=== PATIENT | female | born 1990 | race Caucasian/White ===

== ENCOUNTER 2021-04-11 12:09 | Emergency (ER) | payer MEDICAID, SELFPAY ==
[2021-04-11 12:10] VITALS: BP 95/64; PULSE 72; RESP 16; TEMP 36.4; O2SAT 98; BMI 24.5
--- NOTE | 2021-04-11 14:00 | EDS_ITS ---
HPI History of Present Illness Chief Complaint: Flank Pain Informant: patient Narrative Narrative: Patient Present with right-sided flank pain. I first found she has been having this for several days. I then find out he goes back to October. I then find out it goes back in excess of a year.She had a colonoscopy about a year or so ago. She had another colonoscopy in December. She is waiting for an EGD. She was seen in December or January in a different emergency department.They did blood work, CAT scan and a HIDA scan. She reports all these as normal. She has follow-up with gastroenterology. She has tried what sounds like proton pump inhibitors.Food does make this worse but so it is motion.She has also been doing therapy for the back for about a year and this does not seem to help it. She has no radicular symptoms. She was seen today because she went to urgent care and was referred to the emergency department.No fevers or chills. No weight loss. No history of any abdominal surgery. Normal menstrual cycles and she is currently on her cycle. She denies urinary symptoms.Nothing makes her symptoms better or worse. PFSH PFSH Home Medications naproxen 500 mg PO BID PRN #14 tab 04/11/21 [Rx Last Taken Unknown] Allergy/AdvReac Type Severity Reaction Status Date / Time No Known Allergies Allergy Verified 04/11/21 12:12 Social History Smoking Status: Unknown if ever smoked ROS ROS ED Constitutional Constitutional ED: Denies chills or fever(s) Eyes Eyes: Denies blurry vision ENT ENT ED: Denies rhinorrhea or sore throat Cardiovascular Cardiovascular: Denies chest pain or palpitations Respiratory/Chest Respiratory/Chest: Denies cough, dyspnea, dyspnea on exertion or sputum Gastrointestinal Gastrointestinal: Reports abdominal pain; Denies constipation, diarrhea, melena, nausea or vomiting Genitourinary Genitourinary ED: Denies dysuria, hematuria or urinary frequency Musculoskeletal Musculoskeletal: Reports other Details: Pain does note toward the right flank slightly. ; Denies arthralgias or neck pain Integumentary Denies rash Neurologic Neurologic: Reports other Details: No Radicular or neurologic symptoms. ; Denies headache(s), paresthesias or weakness Psychiatric Psychiatric: Denies anxiety or depression Endocrine Endocrinology: Denies polyuria Allergic/Immunologic Allergic/Immunologic ED: Denies urticaria EXAM Physical Exam Const Vital Signs: 04/11/21 12:10 04/11/21 13:04 Temperature 97.6 F L Temperature Source Temporal Pulse Rate 72 Respiratory Rate 16 Respiratory Effort Normal Non-Labored Respiratory Pattern Normal Blood Pressure 95/64 Blood Pressure Mean 74 Pulse Ox 98 Oxygen Delivery Method Room Air Positive well nourished and well developed General Appearance ED: well developed; Negative for NAD HEENT Reports moist mucous membranes Eyes General Eye ED: Negative for pale conjunctiva or scleral icterus Neck no lymphadenopathy and no JVD Chest Wall inspection of chest normal Resp normal respiratory effort and clear to auscultation bilaterally Resp Narrative: Patient can take a deep breath without any discomfort. Effort and Inspection: Negative for pain with movement Auscultation: Negative for rales, rhonchi, wheezes or diminished lung sounds Cardio regular rate and regular rhythm GI normal to inspection, nondistended, normoactive bowel sounds and non-distended GI Narrative: Patient has some mild tenderness that tends to be more toward the right upper quadrant and lateral area. But it is quite variable.No herniation felt. No skin changes rashes or vesicles. Auscultation: normoactive bowel sounds Palpation: soft Back/Spine no CVA tenderness General Back: CVA tenderness Extremity normal to inspection General Extremety ED: Negative for edema or tenderness General Extremity: Negative for edema Neuro oriented x3 Sensorium / Orientation: alert Psych mental status grossly normal Skin no rashes or lesions noted MDM MDM MDM Narrative Medical decision making narrative: Bloodwork is showing no marked abnormalities. No elevated white count. Normal platelets. Hemoglobin normal. Electrolytes and liver function test are normal. are negative.Urine cyst shows red cells consistent with being on her menstrual cycle but no sign of infection. I explained to the patient that she has had symptoms for approaching a year or more. I do not have a specific diagnosis. She is already had colonoscopies, CT scans HIDA scan. She states that when she went to physical therapy and they did manipulation of her back it did seem to help. This would lean toward some musculoskeletal component. She does have pain with motion. We will try her on a short course of Naprosyn. 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 With pain going on for a year, normal blood work and already reportedly having a normal CT scan and HIDA scan I do not think further imaging today is needed. Lab Data Attestation: I reviewed the patient's lab results. Labs: Laboratory Results - last 24 hr 04/11/21 04/11/21 04/11/21 13:00 13:00 13:00 WBC 4.3 L RBC 4.13 L Hgb 12.7 Hct 37.6 MCV 91.0 MCH 30.8 MCHC 33.8 RDW Std Deviation 39.4 RDW Coeff of Jonathan 11.9 Plt Count 216 MPV 10.2 Immature Gran % (Auto) 0.000 Neut % (Auto) 58.1 Lymph % (Auto) 30.2 [place] % (Auto) 8.5 Eos % (Auto) 1.8 Baso % (Auto) 1.4 H Absolute Neuts (auto) 2.5 Absolute Lymphs (auto) 1.31 Nucleated RBC % 0 Sodium 141 Potassium 3.7 Chloride 109 H Carbon Dioxide 28.0 Anion Gap 4 L BUN 11 Creatinine 0.67 Estim Creat Clear Calc 115.98 Est GFR (MDRD) Af Amer 133 Est GFR (MDRD) Non-Af 110 BUN/Creatinine Ratio 16.3 Glucose 83 Calcium 8.8 Total Bilirubin 0.40 AST 14 L ALT 20 Alkaline Phosphatase 47 Total Protein 7.2 Albumin 3.6 Globulin 3.6 Albumin/Globulin Ratio 1.0 Lipase 141 Serum , Qual NEGATIVE Urine Color Urine Clarity Urine pH Ur Specific [place] Urine Protein Urine Glucose (UA) Urine Ketones Urine Occult Blood Urine Nitrite Urine Bilirubin Urine Urobilinogen Ur Leukocyte Esterase Urine RBC Urine WBC Ur Squamous Epith Cells Urine Bacteria Urine Mucus 04/11/21 13:00 WBC RBC Hgb Hct MCV MCH MCHC RDW Std Deviation RDW Coeff of Jonathan Plt Count MPV Immature Gran % (Auto) Neut % (Auto) Lymph % (Auto) [place] % (Auto) Eos % (Auto) Baso % (Auto) Absolute Neuts (auto) Absolute Lymphs (auto) Nucleated RBC % Sodium Potassium Chloride Carbon Dioxide Anion Gap BUN Creatinine Estim Creat Clear Calc Est GFR (MDRD) Af Amer Est GFR (MDRD) Non-Af BUN/Creatinine Ratio Glucose Calcium Total Bilirubin AST ALT Alkaline Phosphatase Total Protein Albumin Globulin Albumin/Globulin Ratio Lipase Serum , Qual Urine Color Yellow Urine Clarity Sl. Cloudy Urine pH 6.0 Ur Specific [place] 1.020 Urine Protein Negative Urine Glucose (UA) Normal Urine Ketones Negative Urine Occult Blood 250 H Urine Nitrite Negative Urine Bilirubin Negative Urine Urobilinogen Normal Ur Leukocyte Esterase Negative Urine RBC 25-50 SEEN Urine WBC 0 SEEN Ur Squamous Epith Cells 0-5 SEEN Urine Bacteria 1+ Urine Mucus 0 SEEN Radiography Diagnostic Testing: Clinical Impression(s) from Imaging Studies Chest X-Ray 04/11/21 14:10 IMPRESSION: No radiographic evidence of acute cardiopulmonary disease. Electronically Signed: Alon Melo MD at 14:24 EST , Service support , Discharge Plan Triage Chief Complaint: Flank Pain ED Provider: Matty Foster Dx/Rx/DC Orders Clinical Impression: Chronic right flank pain Instructions: ED Flank Pain, Uncertain Cause Prescriptions: New naproxen 500 MG tablet 500 mg PO BID PRN (Reason: pain) Qty: 14 RF: 0 Primary Care Provider: Care Physician,No Primary Referrals: Care Physician,No Primary [Primary Care Provider] - Activity Restrictions/Additional Instructions: Follow-up your primary physician and millinery department manager as soon as possible. Disposition Disposition: Home, Self Care
[2021-04-11 14:09] LABS: Absolute Lymphocyte Count 1.31 X10^3/uL (0.83-4.51); Absolute Neutrophil Count 2.5 X10^3/uL (2.0-7.7); Basophil# 0.06 X10^3/uL; Basophil% 1.4 % (0-1); Eosinophil# 0.08 X10^3/uL; Eosinophils% 1.8 % (0-5); Hematocrit 37.6 % (37-47); Hemoglobin 12.7 g/dL (12.0-15.0); Lymphocyte # 1.31 X10^3/ul (0.83-4.51); Lymphocyte % 30.2 % (19-41); Mean Corp Hgb Conc 33.8 g/dL (32-36); Mean Corpuscular Hgb 30.8 pg (27.0-32.0); Mean Platelet Vol. 10.2 fl (6.2-12.0); Monocyte# 0.37 X10^3/uL; Monocyte% 8.5 % (0-10); NRBC Flagged by Analyzer 0 % (0-5); Neutrophil # 2.52 X10^3/uL (2.7-7.7); Neutrophil % 58.1 % (47-70); Platelet Count 216 K/mm3 (150-450); RBC Distribution Width CV 11.9 % (11.6-14.6); RBC Distribution Width SD 39.4 fl (35.1-43.9); Red Blood Count 4.13 M/mm3 (4.2-5.4); White Blood Count 4.3 K/mm3 (4.4-11.0)
--- NOTE | 2021-04-11 14:10 | RAD_ITS ---
EXAM: XR CHEST, 2 VIEWS CLINICAL INDICATION: cough TECHNIQUE: Frontal and lateral views of the chest. This report was created using charity: water report generation technology. COMPARISON: None. FINDINGS: LUNGS AND PLEURAL SPACES: Unremarkable. No consolidation or edema. No pneumothorax. No effusion. HEART: Unremarkable. Cardiac silhouette not enlarged. MEDIASTINUM: Central airways and mediastinal contour are unremarkable. BONES/JOINTS: Unremarkable. SOFT TISSUES: Unremarkable. RAD/Chest PA and Lateral IMPRESSION: No radiographic evidence of acute cardiopulmonary disease. Electronically Signed: Alon Melo MD at 14:24 EST , Service support ,
[2021-04-11 14:13] LABS: Color, Urine Yellow (Yellow); Glucose, Dipstick Normal (Normal); Ketone-Dipstick Negative (Negative); Leukocyte Esterase-Dipstick Negative /ul (Negative); Mucous, Urine 0 SEEN /hpf (<or=2+); Nitrite-Dipstick Negative (Negative); Occult Blood-Urine 250 /ul (Negative); Protein-Dipstick Negative (Negative); Urine Bilirubin Dipstick Negative (Negative); Urine Clarity Sl. Cloudy (Clear); Urine Urobilinogen Normal (Normal); White Blood Cells 0 SEEN /hpf (0-5)
[2021-04-11 14:16] LABS: Internal QC Validated? YES +Cl - CLEAR BKGD; Pregnancy, Serum, hCG Quali. NEGATIVE Negative
[2021-04-11 14:20] LABS: Bacteria 1+ /hpf (None Seen); Red Blood Cells-Urine 25-50 SEEN /hpf (0-5); Squamous Epithelial Cells - UA 0-5 SEEN /hpf (5-10)
[2021-04-11 14:22] LABS: AST(SGOT) 14 U/L (15-37); Alanine Aminotransfer ALT/SGPT 20 U/L (13-56); Albumin, Serum 3.6 g/dL (3.2-5.0); Alkaline Phosphatase 47 U/L (45-117); Anion Gap 4 (5-15); BUN 11 mg/dL (7-18); BUN/Creat Ratio 16.3 RATIO (10-20); Calcium,Total 8.8 mg/dL (8.5-10.1); Chloride 109 mmol/L (98-107); Creatinine, Serum 0.67 mg/dL (0.55-1.02); EST Glomerular Filtration Rate 110 mL/min (>60); Est Glom Filt Rate - Afr Amer 133 mL/min (>60); Estimated Creatinine Clearance 115.98 ml/min; Globulin 3.6 g/dL (2.2-4.2); Glucose 83 mg/dL (74-106); Lipase 141 U/L (73-393); Potassium 3.7 mmol/L (3.5-5.1); Protein, Total 7.2 g/dL (6.4-8.2); Sodium Level 141 mmol/L (136-145)
[2021-04-11 16:08] VITALS: BP 90/64; PULSE 65; RESP 14; O2SAT 100
== END 2021-04-11 16:15 | disposition home or self-care (01) ==
PROVIDERS: Emergency Provider Emergency Medicine
DX: R10.11 Right upper quadrant pain (principal); G89.29 Other chronic pain
CPT/HCPCS: 71046; 80053; 81001; 83690; 84703; 85025; 99285; A4216

== ENCOUNTER → 2021-06-18 16:51 | Outpatient (CLI) | payer MEDICAID, SELFPAY ==
[2021-06-18 17:30] LABS: Hematocrit 41.2 % (37-47); Hemoglobin 13.9 g/dL (12.0-15.0); Mean Corp Hgb Conc 33.7 g/dL (32-36); Mean Corpuscular Hgb 30.9 pg (27.0-32.0); Mean Corpuscular Volume 91.6 fL (81-99); Mean Platelet Vol. 10.5 fl (6.2-12.0); Platelet Count 268 K/mm3 (150-450); RBC Distribution Width CV 11.9 % (11.6-14.6)
[2021-06-18 17:34] LABS: Color, Urine Yellow (Yellow); Glucose, Dipstick Normal (Normal); Ketone-Dipstick Negative (Negative); Leukocyte Esterase-Dipstick Negative /ul (Negative); Nitrite-Dipstick Negative (Negative); Occult Blood-Urine 10 /ul (Negative); Protein-Dipstick Negative (Negative); Urine Bilirubin Dipstick Negative (Negative); Urine Clarity Clear (Clear); Urine Urobilinogen Normal (Normal)
[2021-06-19 08:17] LABS: ALB/GLOB Ratio 1.1 RATIO (0.9-2.4); AST(SGOT) 17 U/L (15-37); Alanine Aminotransfer ALT/SGPT 22 U/L (13-56); Alkaline Phosphatase 54 U/L (45-117); Anion Gap 8 (5-15); BUN 8 mg/dL (7-18); BUN/Creat Ratio 11.7 RATIO (10-20); Calcium,Total 8.9 mg/dL (8.5-10.1); Chloride 104 mmol/L (98-107); Creatinine, Serum 0.68 mg/dL (0.55-1.02); EST Glomerular Filtration Rate 107 mL/min (>60); Est Glom Filt Rate - Afr Amer 130 mL/min (>60); Globulin 3.8 g/dL (2.2-4.2); Glucose 85 mg/dL (74-106); Potassium 3.6 mmol/L (3.5-5.1); Protein, Total 7.8 g/dL (6.4-8.2); Sodium Level 138 mmol/L (136-145); Thyroid Stim Hormone (TSH) 0.74 uIU/mL (0.358-3.74)
== END ==
DX: R42 Dizziness and giddiness (principal); R53.81 Other malaise; R35.89 Other polyuria
CPT/HCPCS: 80053; 81002; 84443; 85027

== ENCOUNTER 2021-06-29 12:08 | Emergency (ER) | payer BC, MEDICAID, SELFPAY ==
[2021-06-29 12:10] VITALS: BP 107/74; PULSE 83; RESP 17; TEMP 36.3; O2SAT 100; BMI 24.0
[2021-06-29 12:11] VITALS: BP 107/74; PULSE 83; RESP 17; TEMP 36.3; O2SAT 100
--- NOTE | 2021-06-29 12:28 | ED.VIS.FEGU ---
HPI <KRISTAL Baumann - Last Filed: 06/29/21 13:48> HPI - Female History of Present Illness Chief Complaint: Complaint Narrative Narrative: Patient presents with urinary urgency and burning x 1.5 weeks. She reports outpatient labs and urine consistent with UTI. Her primary care doctor prescribed Macrobid x5 days which she completed. Initially she felt better after finishing it 3 days ago. However yesterday she started to have urgency and some burning again. She has low back pain. She chronically has intermittent right flank pain of unknown etiology but denies this presently. PFSH <KRISTAL Baumann - Last Filed: 06/29/21 13:48> [facility] Medical History Abnormal weight loss Arthritis Chest pain Chronic neck and back pain Fatigue Fever History of attempted suicide Limb weakness Shoulder pain SOB (shortness of breath) Home Medications acetaminophen 325 mg tablet 325 mg PO ONCE PRN 04/11/21 [History Last Taken Unknown] ibuprofen 600 mg tablet 600 mg PO Q8H PRN 04/11/21 [History Last Taken Unknown] naproxen 500 mg PO BID PRN #14 tab 04/11/21 [Rx Last Taken Unknown] phenazopyridine [Pyridium] 200 mg PO BID PRN PRN #10 tab 06/29/21 [Rx Last Taken Unknown] sulfamethoxazole-trimethoprim [Bactrim DS] 1 tab PO BID #6 tab 06/29/21 [Rx Last Taken Unknown] Allergy/AdvReac Type Severity Reaction Status Date / Time cinnamon Allergy unknown Verified 04/22/21 10:48 herse Allergy unknown Uncoded 04/22/21 10:48 Family History (System 04/22/21 @ 10:48 by Rosemary Vaz) Other Anemia Heart defect Heart enlarged Hypoglycemia Social History Smoking Status: Unknown if ever smoked alcohol intake: never ROS <KRISTAL Baumann - Last Filed: 06/29/21 13:48> ROS ED ROS Narrative Constitutional: Negative for fever, chills, malaise. Eyes: Negative for visual change. ENT: Negative for sore throat, ear pain, rhinorrhea. CVS: Negative for palpitations, chest pain, syncope. Respiratory: Negative for shortness of breath, cough, orthopnea. GI: Negative for abdominal pain, nausea, vomiting, diarrhea, constipation, melena, hematochezia. : Positive for dysuria, frequency. Negative for hematuria. Neuro: Negative for headache, motor/sensory dysfunction. Skin: Negative for rash, abscess, or wound. Heme: Negative for easy bruising, bleeding, lymphadenopathy. EXAM <KRISTAL Baumann - Last Filed: 06/29/21 13:48> Physical Exam Narrative Exam Narrative: CONST: Patient sitting in no acute distress. EYES: Normal inspection. NECK: Normal inspection. RESP: No respiratory distress, CTAB. CVS: Regular rate and rhythm, no murmur, no gallop. ABD: Soft with mild suprapubic tenderness, no guarding or rebound, nondistended. Back: Normal inspection, right CVA tenderness- chronic according to patient. SKIN: Color normal, no rash, warm, dry, intact. EXTREMITIES: Normal appearance, no pedal edema. NEURO: Oriented x4. PSYCH: Normal affect. Const Vital Signs: 06/29/21 12:10 06/29/21 12:11 06/29/21 14:02 Temperature 97.4 F L 97.4 F L Temperature Source Temporal Temporal Pulse Rate 83 83 Respiratory Rate 17 17 16 Blood Pressure 107/74 107/74 Blood Pressure Mean 85 85 Pulse Ox 100 100 Oxygen Delivery Method Room Air Room Air <Dr. Lucia Maldonado MD - Last Filed: 06/29/21 17:36> Physical Exam Const Vital Signs: 06/29/21 12:10 06/29/21 12:11 06/29/21 14:02 Temperature 97.4 F L 97.4 F L Temperature Source Temporal Temporal Pulse Rate 83 83 Respiratory Rate 17 17 16 Blood Pressure 107/74 107/74 Blood Pressure Mean 85 85 Pulse Ox 100 100 Oxygen Delivery Method Room Air Room Air MDM <KRISTAL Baumann - Last Filed: 06/29/21 13:48> [facility] Narrative Medical decision making narrative: Patient was recently treated for UTI with Macrobid and presents with persistent dysuria. She appears well nontoxic. Vital signs are within normal limits. Her abdominal exam is benign. She has chronic right flank tenderness but states this is unchanged. She had recent labs here in 1/26 with a normal CBC/BMP. UA today is positive for leukocyte esterase but has no RBCs or WBCs and only 1+ bacteria. With her persistent urinary symptoms she will be started on 3 days of Bactrim and Pyridium and can follow-up with her primary care doctor for the urine culture. Patient was agreeable with this plan and discharged in stable condition. Diagnosis 1. UTI Lab Data Labs: Laboratory Results - last 24 hr 06/29/21 12:50 Urine Color Yellow Urine Clarity Clear Urine pH 6.0 Ur Specific [place] 1.015 Urine Protein Negative Urine Glucose (UA) Normal Urine Ketones Negative Urine Occult Blood 10 H Urine Nitrite Negative Urine Bilirubin Negative Urine Urobilinogen Normal Ur Leukocyte Esterase 25 H Urine RBC 0 SEEN Urine WBC 0-5 SEEN Ur Squamous Epith Cells 5-10 SEEN Urine Bacteria 1+ Urine Mucus 0 SEEN <Dr. 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 Patient independently interviewed and examined. Patient presents with recurrent dysuria. She was recently on Macrobid for UTI. She does have history of chronic right flank pain. Physical exam Patient lying in bed no acute distress. She is nontoxic-appearing. Head and neck examination unremarkable. Heart is regular rate and rhythm. Lung sounds are clear. Abdomen is soft with mild tenderness in the upper abdomen. No guarding or rebound. She has mild CVA tenderness on the right. Neuro exam is normal. Urinalysis shows 0-5 white cells with epithelial cells. 1+ bacteria is noted. With patient having recent confirmed UTI and now with recurrent symptoms should be treated with a 3-day course of Bactrim. She will also be given a prescription for Pyridium. Return instructions provided. Discharge Plan Triage Chief Complaint: Complaint ED Provider: Ivy Paul Dx/Rx/DC Orders Clinical Impression: UTI (urinary tract infection) Instructions: Urinary Tract Infections in Women Prescriptions: New phenazopyridine [Pyridium] 200 mg tablet 200 mg PO BID PRN PRN (Reason: Pain) Qty: 10 RF: 0 sulfamethoxazole-trimethoprim [Bactrim DS] 800-160 mg tablet 1 tab PO BID Qty: 6 RF: 0 No Action acetaminophen [Tylenol] 325 mg tablet 325 mg PO ONCE PRNRF: 0 ibuprofen 600 mg tablet 600 mg PO Q8H PRNRF: 0 naproxen 500 MG tablet 500 mg PO BID PRN (Reason: pain) Qty: 14 RF: 0 Referrals: Parth Moreau [Other] Activity Restrictions/Additional Instructions: Today you were seen for urinary complaints. Your urine shows a possible slight UTI but was sent for culture. I will start you on 3 days of antibiotics. Please call your primary care doctor tomorrow as he can check on the urine culture. Disposition Disposition: Home, Self Care Discharge Date/Time: 06/29/21 14:03
[2021-06-29 12:52] LABS: Mucous, Urine 0 SEEN /hpf (<or=2+); Red Blood Cells-Urine 0 SEEN /hpf (0-5)
[2021-06-29 12:55] LABS: Color, Urine Yellow (Yellow); Glucose, Dipstick Normal (Normal); Ketone-Dipstick Negative (Negative); Leukocyte Esterase-Dipstick 25 /ul (Negative); Nitrite-Dipstick Negative (Negative); Occult Blood-Urine 10 /ul (Negative); Protein-Dipstick Negative (Negative); Specific Gravity, Urine 1.015 (1.002-1.030); Urine Bilirubin Dipstick Negative (Negative); Urine Clarity Clear (Clear); Urine Urobilinogen Normal (Normal)
[2021-06-29 13:00] LABS: Bacteria 1+ /hpf (None Seen); Squamous Epithelial Cells - UA 5-10 SEEN /hpf (5-10); White Blood Cells 0-5 SEEN /hpf (0-5)
[2021-06-29 14:02] VITALS: RESP 16
== END 2021-06-29 23:59 | disposition home or self-care (01) ==
PROVIDERS: Emergency Provider Physician Assistant; Visit Provider Physician Assistant
DX: N39.0 Urinary tract infection, site not specified (principal)
CPT/HCPCS: 81001; 87086; 87088; 99282

== ENCOUNTER 2021-07-06 00:36 | Emergency (ER) | payer BC, MEDICAID, SELFPAY ==
[2021-07-06 00:36] VITALS: BP 111/67; PULSE 86; RESP 16; TEMP 37.1; O2SAT 100; BMI 25.0
--- NOTE | 2021-07-06 00:51 | EKG12_ITS ---
Test Reason : DIZZY Blood Pressure : / mmHG Vent. Rate : 085 BPM Atrial Rate : 085 BPM P-R Int : 132 ms QRS Dur : 086 ms QT Int : 350 ms P-R-T Axes : 056 076 050 degrees QTc Int : 416 ms Normal sinus rhythm Normal ECG Confirmed by DAYNE SMITH, DANIEL ([id number]), photo editor ANITHA BEE ([id number]) on 07/08/2021 11:38:03 AM Referred By: JOSH Confirmed By:DANIEL OSCAR MD
[2021-07-06 01:35] LABS: Mucous, Urine 0 SEEN /hpf (<or=2+); Squamous Epithelial Cells - UA 0 SEEN /hpf (5-10); White Blood Cells 0 SEEN /hpf (0-5)
[2021-07-06 01:39] LABS: Color, Urine Yellow (Yellow); Glucose, Dipstick Normal (Normal); Ketone-Dipstick Negative (Negative); Leukocyte Esterase-Dipstick Negative /ul (Negative); Nitrite-Dipstick Negative (Negative); Occult Blood-Urine 150 /ul (Negative); Protein-Dipstick Negative (Negative); Urine Bilirubin Dipstick Negative (Negative); Urine Clarity Clear (Clear); Urine Urobilinogen Normal (Normal)
[2021-07-06 01:40] LABS: Internal QC Validated? YES +Cl - CLEAR BKGD; Pregnancy, Urine Negative Negative
[2021-07-06 01:46] LABS: Bacteria RARE /hpf (None Seen); Red Blood Cells-Urine 5-10 SEEN /hpf (0-5)
[2021-07-06] MEDS: Meclizine HCl 25 MG Tablet PO (02:01)
[2021-07-06] MEDS: 0.9% Normal Saline 1,000 ML 1000 ML IV (02:02)
--- NOTE | 2021-07-06 02:04 | EX.ED.DYSGE1 ---
HPI History of Present Illness Chief Complaint: Dizziness Informant: patient Narrative Narrative: Patient had onset of vertigo dizziness and a mild sense of near syncope this evening. She has had this before but this seemed to be a little bit more than what she normally gets. She had some mild versions yesterday after she took aspirin. This is normal for her. She states she had some pelvic cramping because she is on her menstrual cycle. It seemed to be normal. She is not bleeding excessively. She asked for some Tylenol but somebody gave her aspirin instead. She took it and did not realize that. She did feel little lightheaded afterwards which would be a typical reaction when she takes aspirin. But it seemed to have resolved this morning. This afternoon it came back but was worse and she has not taken more aspirin. She did not have chest pain or palpitations. She has no headache. No numbness tingling weakness. No urinary symptoms. No diarrhea or vomiting. Her symptoms clearly get worse if she moves. If she stays still she does not feel that bad but if she moves or moves her head it is a lot worse. Nothing really makes it better other than staying still. Patient had a UTI recently but feels her symptoms are gone. She did take Bactrim for this. She also has history of mitral valve prolapse and does not know if that is what causes her symptoms. [facility] Medical History Abnormal weight loss Arthritis Chest pain Chronic neck and back pain Fatigue Fever History of attempted suicide Limb weakness Mitral valve regurgitation Shoulder pain SOB (shortness of breath) Home Medications acetaminophen 325 mg tablet 325 mg PO ONCE PRN 04/11/21 [History Last Taken Unknown] ibuprofen 600 mg tablet 600 mg PO Q8H PRN 04/11/21 [History Last Taken Unknown] naproxen 500 mg PO BID PRN #14 tab 04/11/21 [Rx Last Taken Unknown] phenazopyridine [Pyridium] 200 mg PO BID PRN PRN #10 tab 06/29/21 [Rx Last Taken Unknown] sulfamethoxazole-trimethoprim [Bactrim DS] 1 tab PO BID #6 tab 06/29/21 [Rx Last Taken Unknown] meclizine 25 mg PO TID PRN #20 tab 07/06/21 [Rx Last Taken Unknown] Allergy/AdvReac Type Severity Reaction Status Date / Time cinnamon Allergy unknown Verified 04/22/21 10:48 horse dander Allergy Itching Verified 07/06/21 00:39 Family History Other Anemia Heart defect Heart enlarged Hypoglycemia Social History Smoking Status: Never smoker alcohol intake: never ROS ROS ED Constitutional Constitutional ED: Denies chills or fever(s) Eyes Eyes: Reports other Details: No change in vision, but if she looks side side she gets more dizzy. ; Denies blurry vision, change in vision or diplopia ENT ENT ED: Denies ear pain, rhinorrhea or sore throat Cardiovascular Cardiovascular: Denies chest pain or palpitations Respiratory/Chest Respiratory/Chest: Denies dyspnea Gastrointestinal Gastrointestinal: Reports nausea and other Details: When dizziness is bad after turning she gets transient nausea but has not vomited. ; Denies abdominal pain, constipation, diarrhea, melena or vomiting Genitourinary Genitourinary ED: Denies dysuria, hematuria or urinary frequency Musculoskeletal Musculoskeletal: Denies arthralgias or myalgias Integumentary Denies rash Neurologic Neurologic: Denies headache(s), paresthesias or weakness Endocrine Endocrinology: Denies polydipsia or polyuria Allergic/Immunologic Allergic/Immunologic ED: Denies mouth swelling or urticaria EXAM Physical Exam Const Vital Signs: 07/06/21 00:36 07/06/21 00:39 Temperature 98.8 F Temperature Source Oral Pulse Rate 86 Respiratory Rate 16 Respiratory Effort Normal Respiratory Pattern Normal Blood Pressure 111/67 Blood Pressure Mean 81 Pulse Ox 100 Oxygen Delivery Method Room Air Positive well nourished and well developed Constitutional Narrative: Patient is awake alert no acute distress. Not diaphoretic. Not abnormally pale. No rashes noted. She does tend to sit straight up in bed and does not look side to side. General Appearance ED: well developed and NAD; Negative for cyanotic or diaphoretic HEENT Reports TM's clear and moist mucous membranes Negative for trauma or tenderness Tympanic Membrane ED: Yes TM's clear Eyes PERRL and EOMs intact bilaterally Neck no lymphadenopathy, supple and no JVD Chest Wall inspection of chest normal Resp normal respiratory effort and clear to auscultation bilaterally Cardio regular rate, regular rhythm and no murmurs GI normal to inspection, nondistended, normoactive bowel sounds and non-tender Palpation: soft Back/Spine no CVA tenderness Extremity normal to inspection Extremity Narrative: No cords, edema, asymmetry, tenderness along the deep venous system or distended veins. General Extremety ED: Negative for edema or tenderness General Extremity: Negative for edema Neuro oriented x3 Neuro Narrative: Patient does have significant vertigo looking to either side. To me it seems like she had more difficulty looking to the left than the right but she states she is not sure if she notices a different. I did do an Josephine maneuver. Although this did not completely resolve her symptoms it did help quite a bit and she can look left to right much better. Sensorium / Orientation: alert Psych mental status grossly normal Skin no rashes or lesions noted MDM MDM MDM Narrative Medical decision making narrative: Blood work shows normal CBC. Electrolytes are overall unremarkable. Urinalysis shows a few red cells but she is on her menstrual cycle. No sign of infection. test is negative. EKG is unremarkable. Patient is feeling little bit better. She states she still feels her symptoms a little bit when she turns but it is improved. It is more to a level that she is dealt with in the past. I will write for some meclizine. She states she is already off work for the next couple days so does not need a note. If she develops any focal numbness tingling weakness headaches visual changes or otherwise she should return. However, at this point I do not think a CAT scan is going to be indicated. Lab Data Attestation: I reviewed the patient's lab results. Labs: Laboratory Results - last 24 hr 07/06/21 07/06/21 07/06/21 01:30 01:54 01:54 WBC 6.3 RBC 4.25 Hgb 13.7 Hct 39.2 MCV 92.2 MCH 32.2 H MCHC 34.9 RDW Std Deviation 40.8 RDW Coeff of Jonathan 12.0 Plt Count 244 MPV 9.9 Immature Gran % (Auto) 0.200 Neut % (Auto) 77.7 H Lymph % (Auto) 16.1 L [place] % (Auto) 4.6 Eos % (Auto) 0.8 Baso % (Auto) 0.6 Absolute Neuts (auto) 4.9 Absolute Lymphs (auto) 1.01 Nucleated RBC % 0 Sodium 140 Potassium 3.8 Chloride 109 H Carbon Dioxide 28.0 Anion Gap 3 L BUN 10 Creatinine 0.68 Estim Creat Clear Calc 113.25 Est GFR (MDRD) Af Amer 131 Est GFR (MDRD) Non-Af 108 BUN/Creatinine Ratio 14.7 Glucose 100 Calcium 9.0 Urine Color Yellow Urine Clarity Clear Urine pH 6.0 Ur Specific [place] 1.010 Urine Protein Negative Urine Glucose (UA) Normal Urine Ketones Negative Urine Occult Blood 150 H Urine Nitrite Negative Urine Bilirubin Negative Urine Urobilinogen Normal Ur Leukocyte Esterase Negative Urine RBC 5-10 SEEN Urine WBC 0 SEEN Ur Squamous Epith Cells 0 SEEN Urine Bacteria RARE Urine Mucus 0 SEEN Urine Test Negative EKG Initial EKG: Comments: EKG done for lightheadedness read by me showed normal sinus rhythm with a rate of 85. No ectopy. No acute ST elevation or depression. LA interval, QRS duration and QTc normal. Discharge Plan Triage Chief Complaint: Dizziness ED Provider: Matty Foster Dx/Rx/DC Orders Clinical Impression: Vertigo Instructions: ED BPV Vertigo, ED Dizziness, Uncertain Cause Prescriptions: New meclizine 25 mg tablet 25 mg PO TID PRN (Reason: dizziness) Qty: 20 RF: 0 No Action acetaminophen [Tylenol] 325 mg tablet 325 mg PO ONCE PRNRF: 0 ibuprofen 600 mg tablet 600 mg PO Q8H PRNRF: 0 naproxen 500 MG tablet 500 mg PO BID PRN (Reason: pain) Qty: 14 RF: 0 phenazopyridine [Pyridium] 200 mg tablet 200 mg PO BID PRN PRN (Reason: Pain) Qty: 10 RF: 0 sulfamethoxazole-trimethoprim [Bactrim DS] 800-160 mg tablet 1 tab PO BID Qty: 6 RF: 0 Referrals: RICHAR ROLDAN [Other] - 3-5 Days if not improving Disposition Disposition: Home, Self Care
[2021-07-06 02:09] LABS: Absolute Lymphocyte Count 1.01 X10^3/uL (0.83-4.51); Absolute Neutrophil Count 4.9 X10^3/uL (2.0-7.7); Basophil# 0.04 X10^3/uL; Basophil% 0.6 % (0-1); Eosinophil# 0.05 X10^3/uL; Eosinophils% 0.8 % (0-5); Hematocrit 39.2 % (37-47); Hemoglobin 13.7 g/dL (12.0-15.0); Lymphocyte # 1.01 X10^3/ul (0.83-4.51); Lymphocyte % 16.1 % (19-41); Mean Corp Hgb Conc 34.9 g/dL (32-36); Mean Corpuscular Hgb 32.2 pg (27.0-32.0); Mean Corpuscular Volume 92.2 fL (81-99); Mean Platelet Vol. 9.9 fl (6.2-12.0); Monocyte# 0.29 X10^3/uL; Monocyte% 4.6 % (0-10); NRBC Flagged by Analyzer 0 % (0-5); Neutrophil # 4.88 X10^3/uL (2.7-7.7); Neutrophil % 77.7 % (47-70); Platelet Count 244 K/mm3 (150-450); RBC Distribution Width SD 40.8 fl (35.1-43.9); Red Blood Count 4.25 M/mm3 (4.2-5.4); White Blood Count 6.3 K/mm3 (4.4-11.0)
[2021-07-06 02:16] LABS: Anion Gap 3 (5-15); BUN 10 mg/dL (7-18); BUN/Creat Ratio 14.7 RATIO (10-20); Chloride 109 mmol/L (98-107); Creatinine, Serum 0.68 mg/dL (0.55-1.02); EST Glomerular Filtration Rate 108 mL/min (>60); Est Glom Filt Rate - Afr Amer 131 mL/min (>60); Estimated Creatinine Clearance 113.25 ml/min; Glucose 100 mg/dL (74-106); Potassium 3.8 mmol/L (3.5-5.1); Sodium Level 140 mmol/L (136-145)
[2021-07-06 03:05] VITALS: BP 101/71; PULSE 86; RESP 15; O2SAT 100
== END 2021-07-06 23:59 | disposition home or self-care (01) ==
PROVIDERS: Emergency Provider Emergency Medicine; Visit Provider Emergency Medicine
DX: R42 Dizziness and giddiness (principal)
CPT/HCPCS: 80048; 81001; 81025; 85025; 93005; 99285; A4216

== ENCOUNTER 2021-08-16 15:14 | Emergency (ER) | payer BC, MEDICAID, SELFPAY ==
[2021-08-16 15:17] VITALS: BP 104/67; PULSE 83; RESP 15; TEMP 36.5; O2SAT 100; BMI 24.8
--- NOTE | 2021-08-16 15:31 | CT_ITS ---
EXAM: CT ABDOMEN AND PELVIS WITH INTRAVENOUS CONTRAST CLINICAL INDICATION: RLQ pain TECHNIQUE: Helically acquired images were obtained of the abdomen and pelvis with intravenous contrast. This CT exam was performed using one or more of the following dose reduction techniques: automated exposure control, adjustment of the mA and/or kV according to patient size, and/or use of iterative reconstruction technique. This report was created using [employer] report generation technology. Motion artifact. CONTRAST: IV 100mL Isovue-300 COMPARISON: None. FINDINGS: LOWER THORAX: Unremarkable. Lung bases are clear. No cardiomegaly. No significant pericardial effusion. ABDOMEN: LIVER: Unremarkable. Homogeneous. No focal mass. GALLBLADDER AND BILE DUCTS: Unremarkable. No calcified gallstones. No gallbladder distention or wall edema. No intra- or extrahepatic biliary ductal dilation. PANCREAS: Unremarkable. No focal cystic or solid mass. SPLEEN: Unremarkable. Normal size without focal cystic or solid mass. ADRENALS: Unremarkable. No nodules. KIDNEYS AND URETERS: Unremarkable. Normal renal size and position. No hydronephrosis. STOMACH AND BOWEL: Unremarkable. No stomach or bowel distention. No focal inflammatory change. PELVIS: APPENDIX: No evidence of acute appendicitis. BLADDER: Unremarkable. REPRODUCTIVE: Unremarkable as visualized. No mass. ABDOMEN and PELVIS: INTRAPERITONEAL SPACE: Unremarkable. No ascites or other fluid collection. No free air. BONES/JOINTS: Unremarkable. No suspicious lytic or blastic abnormality. SOFT TISSUES: Unremarkable. No discrete abdominal or pelvic wall hernia. VASCULATURE: Unremarkable. Abdominal aorta is non-dilated. LYMPH NODES: Unremarkable. No enlarged lymph nodes. CT/Abdomen/Pelvis W IV Cont ONLY IMPRESSION: Negative CT of the abdomen and pelvis with intravenous contrast. Electronically Signed: Matthias Atkinson MD ([place]) at 16:57 EDT Reading Location ID and State: [facility] / [place] , Service support ,
--- NOTE | 2021-08-16 15:34 | ED.VIS.GI ---
HPI HPI - GI History of Present Illness Chief Complaint: Abd Pain Narrative Narrative: 31-year-old female presenting with right upper and lower quadrant abdominal pain. She states she has had this pain on and off for a week. It is associated with nausea. She is not been vomiting. She denies diarrhea or constipation. She states she has history of UTIs but is not having any urinary symptoms. No fevers. States sometimes she feels hot and sometimes she feels cold. She states today the pain has been there for about 30 minutes. She arrives by EMS from home she did not feel she could drive secondary to pain. [facility] Medical History Abnormal weight loss Arthritis Chest pain Chronic neck and back pain Fatigue Fever History of attempted suicide Limb weakness Mitral valve regurgitation Shoulder pain SOB (shortness of breath) Home Medications ondansetron 4 mg PO Q8H PRN #10 tab 08/16/21 [Rx Last Taken Unknown] Allergy/AdvReac Type Severity Reaction Status Date / Time cinnamon Allergy unknown Verified 08/16/21 15:15 horse dander Allergy Itching Verified 08/16/21 15:15 Family History Other Anemia Heart defect Heart enlarged Hypoglycemia Social History Smoking Status: Never smoker alcohol intake: never ROS ROS ED Review of Systems ROS Unobtainable: Denies due to encephalopathy Constitutional Constitutional ED: Reports chills and sweats; Denies fever(s) ENT ENT ED: Denies rhinorrhea or sore throat Cardiovascular Cardiovascular: Denies chest pain or palpitations Respiratory/Chest Respiratory/Chest: Denies cough or dyspnea Gastrointestinal Gastrointestinal: Reports abdominal pain and nausea; Denies constipation, diarrhea or vomiting Genitourinary Genitourinary ED: Denies dysuria or hematuria Musculoskeletal Musculoskeletal: Denies myalgias Integumentary Denies rash Neurologic Neurologic: Denies headache(s) or paresthesias Psychiatric Psychiatric: Denies anxiety or depression EXAM Physical Exam Const Vital Signs: 08/16/21 15:17 Temperature 97.7 F L Temperature Source Oral Pulse Rate 83 Respiratory Rate 15 Blood Pressure 104/67 Blood Pressure Mean 79 Pulse Ox 100 Oxygen Delivery Method Room Air Positive well nourished General Appearance ED: NAD and pallor HEENT Reports moist mucous membranes normocephalic and atraumatic Eyes PERRL and EOMs intact bilaterally General Eye ED: Negative for pale conjunctiva or scleral icterus Resp normal respiratory effort and clear to auscultation bilaterally Cardio regular rate and regular rhythm GI Palpation: tender RLQ and RUQ Neuro CN's II-XII intact bilaterally and moves all extremities Sensorium / Orientation: alert, oriented to person, oriented to place and oriented to time Psych mental status grossly normal and thought process normal Skin General Skin Exam: jaundice and pallor Rashes: no rashes MDM MDM MDM Narrative Medical decision making narrative: Patient having right upper quadrant and right lower quadrant abdominal pain. Not silvana Cantrell sign or McBurney point tenderness. CBC shows no leukocytosis, hemoglobin hematocrit normal. CMP and lipase are normal. Electrolytes and renal function are normal. Serum test is negative. Urinalysis is negative for infection. I obtained a CT of the abdomen pelvis IV contrast which does not identify any acute intra-abdominal abnormality. Patient counseled on findings. She has no further questions. Even her negative work-up I feel she safe to be discharged home. She is given return precautions. Impression: 1. Abdominal pain 2. Nausea Lab Data Labs: Laboratory Results - last 24 hr 08/16/21 08/16/21 08/16/21 15:30 15:30 15:30 WBC 5.6 RBC 4.56 Hgb 14.6 Hct 42.5 MCV 93.2 MCH 32.0 MCHC 34.4 RDW Std Deviation 40.5 RDW Coeff of Jonathan 11.8 Plt Count 249 MPV 10.0 Immature Gran % (Auto) 0.400 Neut % (Auto) 64.3 Lymph % (Auto) 28.3 [place] % (Auto) 5.2 Eos % (Auto) 1.1 Baso % (Auto) 0.7 Absolute Neuts (auto) 3.6 Absolute Lymphs (auto) 1.59 Nucleated RBC % 0 Sodium 138 Potassium 3.9 Chloride 107 Carbon Dioxide 28.0 Anion Gap 3 L BUN 10 Creatinine 0.75 Estim Creat Clear Calc 106.66 Est GFR (MDRD) Af Amer 117 Est GFR (MDRD) Non-Af 96 BUN/Creatinine Ratio 13.3 Glucose 93 Calcium 9.0 Total Bilirubin 0.20 AST 12 L ALT 20 Alkaline Phosphatase 55 Total Protein 7.7 Albumin 3.9 Globulin 3.8 Albumin/Globulin Ratio 1.0 Lipase 158 Serum , Qual NEGATIVE Urine Color Urine Clarity Urine pH Ur Specific [place] Urine Protein Urine Glucose (UA) Urine Ketones Urine Occult Blood Urine Nitrite Urine Bilirubin Urine Urobilinogen Ur Leukocyte Esterase Urine RBC Urine WBC Ur Squamous Epith Cells Amorphous Sediment Urine Bacteria Urine Mucus 08/16/21 16:15 WBC RBC Hgb Hct MCV MCH MCHC RDW Std Deviation RDW Coeff of Jonathan Plt Count MPV Immature Gran % (Auto) Neut % (Auto) Lymph % (Auto) [place] % (Auto) Eos % (Auto) Baso % (Auto) Absolute Neuts (auto) Absolute Lymphs (auto) Nucleated RBC % Sodium Potassium Chloride Carbon Dioxide Anion Gap BUN Creatinine Estim Creat Clear Calc Est GFR (MDRD) Af Amer Est GFR (MDRD) Non-Af BUN/Creatinine Ratio Glucose Calcium Total Bilirubin AST ALT Alkaline Phosphatase Total Protein Albumin Globulin Albumin/Globulin Ratio Lipase Serum , Qual Urine Color Yellow Urine Clarity Sl Cloudy Urine pH 7.0 Ur Specific [place] 1.015 Urine Protein Negative Urine Glucose (UA) Normal Urine Ketones Negative Urine Occult Blood 10 H Urine Nitrite Negative Urine Bilirubin Negative Urine Urobilinogen Normal Ur Leukocyte Esterase Negative Urine RBC 0-5 SEEN Urine WBC 0-5 SEEN Ur Squamous Epith Cells 0-5 SEEN Amorphous Sediment 1+ Urine Bacteria RARE Urine Mucus 0 SEEN Radiography Diagnostic Testing: Clinical Impression(s) from Imaging Studies Abdomen/Pelvis CT 08/16/21 15:31 IMPRESSION: Negative CT of the abdomen and pelvis with intravenous contrast. Electronically Signed: Matthias Atkinson MD ([place]) at 16:57 EDT Reading Location ID and State: [facility] / [place] , Service support , Discharge Plan Triage Chief Complaint: Abd Pain ED Provider: Timoteo Greenwood Dx/Rx/DC Orders Instructions: ED Abdominal Pain Unkn Cause Fem Prescriptions: New ondansetron 4 mg tablet,disintegrating 4 mg PO Q8H PRN (Reason: nausea and vomiting) Qty: 10 RF: 0 Referrals: RICHAR ROLDAN [Other] Disposition Disposition: Home, Self Care
[2021-08-16] MEDS: Morphine 4 MG/ML Syringe IV ×2 (15:47→16:26)
[2021-08-16] MEDS: Ondansetron 4 MG/2 ML Vial IV (15:47)
[2021-08-16] MEDS: 0.9% Normal Saline 1,000 ML 1000 ML IV (15:48)
[2021-08-16 15:57] LABS: Absolute Lymphocyte Count 1.59 X10^3/uL (0.83-4.51); Absolute Neutrophil Count 3.6 X10^3/uL (2.0-7.7); Basophil# 0.04 X10^3/uL; Basophil% 0.7 % (0-1); Eosinophil# 0.06 X10^3/uL; Eosinophils% 1.1 % (0-5); Hematocrit 42.5 % (37-47); Hemoglobin 14.6 g/dL (12.0-15.0); Lymphocyte # 1.59 X10^3/ul (0.83-4.51); Lymphocyte % 28.3 % (19-41); Mean Corp Hgb Conc 34.4 g/dL (32-36); Mean Corpuscular Volume 93.2 fL (81-99); Monocyte# 0.29 X10^3/uL; Monocyte% 5.2 % (0-10); NRBC Flagged by Analyzer 0 % (0-5); Neutrophil # 3.62 X10^3/uL (2.7-7.7); Neutrophil % 64.3 % (47-70); Platelet Count 249 K/mm3 (150-450); RBC Distribution Width CV 11.8 % (11.6-14.6); RBC Distribution Width SD 40.5 fl (35.1-43.9); Red Blood Count 4.56 M/mm3 (4.2-5.4); White Blood Count 5.6 K/mm3 (4.4-11.0)
[2021-08-16 16:12] LABS: AST(SGOT) 12 U/L (15-37); Alanine Aminotransfer ALT/SGPT 20 U/L (13-56); Albumin, Serum 3.9 g/dL (3.2-5.0); Alkaline Phosphatase 55 U/L (45-117); Anion Gap 3 (5-15); BUN 10 mg/dL (7-18); BUN/Creat Ratio 13.3 RATIO (10-20); Chloride 107 mmol/L (98-107); Creatinine, Serum 0.75 mg/dL (0.55-1.02); EST Glomerular Filtration Rate 96 mL/min (>60); Est Glom Filt Rate - Afr Amer 117 mL/min (>60); Estimated Creatinine Clearance 106.66 ml/min; Globulin 3.8 g/dL (2.2-4.2); Glucose 93 mg/dL (74-106); Lipase 158 U/L (73-393); Potassium 3.9 mmol/L (3.5-5.1); Protein, Total 7.7 g/dL (6.4-8.2); Sodium Level 138 mmol/L (136-145)
[2021-08-16 16:20] LABS: Internal QC Validated? YES +Cl - CLEAR BKGD; Pregnancy, Serum, hCG Quali. NEGATIVE Negative
[2021-08-16 16:24] LABS: Mucous, Urine 0 SEEN /hpf (<or=2+)
[2021-08-16 16:33] LABS: Color, Urine Yellow (Yellow); Glucose, Dipstick Normal (Normal); Ketone-Dipstick Negative (Negative); Specific Gravity, Urine 1.015 (1.002-1.030); Urine Bilirubin Dipstick Negative (Negative); Urine Clarity Sl Cloudy (Clear)
[2021-08-16 16:34] LABS: Leukocyte Esterase-Dipstick Negative /ul (Negative); Nitrite-Dipstick Negative (Negative); Occult Blood-Urine 10 /ul (Negative); Protein-Dipstick Negative (Negative); Red Blood Cells-Urine 0-5 SEEN /hpf (0-5); Squamous Epithelial Cells - UA 0-5 SEEN /hpf (5-10); Urine Urobilinogen Normal (Normal); White Blood Cells 0-5 SEEN /hpf (0-5)
[2021-08-16 16:35] LABS: Amorphous Sediment 1+; Bacteria RARE /hpf (None Seen)
[2021-08-16 18:06] VITALS: BP 108/64; PULSE 80; RESP 16; O2SAT 100
[2021-08-16] MEDS: Magnesium Citrate 300 ML PO (18:07)
== END 2021-08-16 18:19 | disposition home or self-care (01) ==
PROVIDERS: Emergency Provider Student in an Organized Health Care Education/Training Program; Visit Provider Student in an Organized Health Care Education/Training Program
DX: R10.11 Right upper quadrant pain (principal); R10.31 Right lower quadrant pain; R11.0 Nausea
CPT/HCPCS: 74177; 80053; 81001; 83690; 84703; 85025; 96361; 96374; 96375; 96376; 99285; J7030; Q9967; J2405

== ENCOUNTER 2021-09-27 20:29 | Emergency (ER) | payer BC, MEDICAID, SELFPAY ==
[2021-09-27 20:30] VITALS: BP 107/69; PULSE 89; RESP 14; TEMP 36.1; O2SAT 97; BMI 24.2
--- NOTE | 2021-09-27 20:47 | EDS_ITS ---
HPI HPI - GI History of Present Illness Chief Complaint: GI Bleed Narrative Narrative: 31-year-old female presenting with blood spotting in her stool. She states she has not had blood otherwise. She states she has noted on toilet paper. She states that there is no irritation to the rectum. Patient states that she does chronically take MiraLAX. She does not have any new abdominal pain and states that her chronic abdominal pain is unchanged. No fever, chills. No complaints. No lightheadedness, dizziness, shortness of breath. No pallor. PFSH PFSH Medical History Abnormal weight loss Arthritis Chest pain Chronic neck and back pain Fatigue Fever History of attempted suicide Limb weakness Mitral valve regurgitation Shoulder pain SOB (shortness of breath) Home Medications ondansetron 4 mg PO Q8H PRN #10 tab 08/16/21 [Rx Last Taken Unknown] bisacodyl [Dulcolax (bisacodyl)] 10 mg PO QHS 2 Days #4 tab 09/27/21 [Rx Last Taken Unknown] Allergy/AdvReac Type Severity Reaction Status Date / Time cinnamon Allergy unknown Verified 09/27/21 20:30 horse dander Allergy Itching Verified 09/27/21 20:30 Family History Other Anemia Heart defect Heart enlarged Hypoglycemia Social History Smoking Status: Never smoker alcohol intake: never ROS ROS ED Constitutional Constitutional ED: Denies chills or fever(s) ENT ENT ED: Denies rhinorrhea or sore throat Cardiovascular Cardiovascular: Denies chest pain or palpitations Respiratory/Chest Respiratory/Chest: Denies cough, dyspnea or sputum Gastrointestinal Gastrointestinal: Reports other Details: Blood in stool ; Denies abdominal pain, nausea or vomiting Genitourinary Genitourinary ED: Denies dysuria or hematuria Musculoskeletal Musculoskeletal: Denies myalgias Integumentary Denies abscess or rash Neurologic Neurologic: Denies headache(s) or weakness EXAM Physical Exam Const Vital Signs: 09/27/21 20:30 Temperature 96.9 F L Temperature Source Temporal Pulse Rate 89 Respiratory Rate 14 Blood Pressure 107/69 Blood Pressure Mean 81 Pulse Ox 97 Oxygen Delivery Method Room Air Positive well nourished General Appearance ED: NAD; Negative for pallor HEENT Reports moist mucous membranes normocephalic and atraumatic Eyes PERRL and EOMs intact bilaterally General Eye ED: Negative for pale conjunctiva Neck no lymphadenopathy and supple Resp normal respiratory effort and clear to auscultation bilaterally Cardio regular rate and regular rhythm GI non-tender and non-distended GI Narrative: Rectal exam: No external hemorrhoids noted. No anal fissure. On rectal exam there is possibly a small internal hemorrhoid at the 12:00 dorsal lithotomy position about 3 cm inward. There is no active bleeding. This is nontender to palpation. No silvana blood on examination. Auscultation: normoactive bowel sounds Palpation: soft Extremity full ROM Neuro Sensorium / Orientation: alert, oriented to person, oriented to place and oriented to time Psych mental status grossly normal Skin General Skin Exam: Negative for jaundice or pallor Lesions: no lesions Rashes: no rashes MDM MDM MDM Narrative Medical decision making narrative: This is a well-appearing 31-year-old female complaining of small amounts of blood in her stool. She also notes this when she wipes. She notes no rectal irritation. On examination there are no external hemorrhoids noted. No anal fissure. There is possibly a small internal hemorrhoid but there is no active bleeding. No black or bloody stool noted on exam. Patient tolerated procedure well. Her vital signs are stable and she is afebrile. She is not expressing any symptoms that would make me think she is anemic such as shortness of breath, lightheadedness, fatigue. I do not believe she needs blood work or imaging. She states she has a GI doctor that she sees and can follow-up with. Patient stable for discharge at this time. Impression: 1. Internal hemorrhoid 2. GI bleed stable Discharge Plan Triage Chief Complaint: GI Bleed ED Provider: Timoteo Greenwood Dx/Rx/DC Orders Instructions: ED Hemorrhoids Prescriptions: New bisacodyl [Dulcolax (bisacodyl)] 5 mg tablet,delayed release (DR/EC) 10 mg PO QHS 2 Days Qty: 4 RF: 0 No Action ondansetron 4 mg tablet,disintegrating 4 mg PO Q8H PRN (Reason: nausea and vomiting) Qty: 10 RF: 0 Primary Care Provider: [facility] Doctor,Out of Referrals: [facility] Doctor,Out of [Primary Care Provider] - Disposition Disposition: Home, Self Care
[2021-09-27 20:54] VITALS: BP 136/78; PULSE 66; RESP 14; TEMP 36.9; O2SAT 98
== END 2021-09-27 20:57 | disposition home or self-care (01) ==
LOC: ED 20:54
PROVIDERS: Emergency Provider Student in an Organized Health Care Education/Training Program; Visit Provider Student in an Organized Health Care Education/Training Program
DX: K64.8 Other hemorrhoids (principal)
CPT/HCPCS: 99282

== ENCOUNTER 2021-10-23 19:39 | Emergency (ER) | payer BC, MEDICAID, SELFPAY ==
[2021-10-23 19:40] VITALS: BP 110/68; PULSE 93; RESP 18; TEMP 36.4; O2SAT 98; BMI 22.8
--- NOTE | 2021-10-23 19:58 | EX.ED.DYSGE1 ---
HPI History of Present Illness Chief Complaint: Nausea/Vomiting Informant: patient Onset/Context/Timing Onset: Today Narrative Narrative: Presents nausea and vomiting since 4:30 PM today. Told to emesis no hematemesis. Has mid abdominal pain. States emesis helped with the pain. She has had vomiting the past several pain is different than typical. Last menstrual period 2 months ago. No abdominal surgery history. Yesterday had 4 loose stools. Today formed stool. Denies recent antibiotics. Denies fevers. Denies any urinary symptoms. PFSH PFSH Medical History Abnormal weight loss Arthritis Chest pain Chronic neck and back pain Fatigue Fever History of attempted suicide Limb weakness Mitral valve regurgitation Shoulder pain SOB (shortness of breath) Home Medications ondansetron 4 mg PO Q8H PRN #10 tab 08/16/21 [Rx Last Taken Unknown] bisacodyl [Dulcolax (bisacodyl)] 10 mg PO QHS 2 Days #4 tab 09/27/21 [Rx Last Taken Unknown] ondansetron 4 mg PO Q6H PRN #10 tab 10/23/21 [Rx Last Taken Unknown] Allergy/AdvReac Type Severity Reaction Status Date / Time cinnamon Allergy unknown Verified 10/23/21 19:41 horse dander Allergy Itching Verified 10/23/21 19:41 Family History Other Anemia Heart defect Heart enlarged Hypoglycemia Social History Smoking Status: Never smoker alcohol intake: never ROS ROS ED Constitutional Constitutional ED: Denies chills, fever(s) or sweats Eyes Eyes: Denies change in vision ENT ENT ED: Denies dysphagia or sore throat Cardiovascular Cardiovascular: Denies chest pain, leg edema, palpitations or racing heartbeat Respiratory/Chest Respiratory/Chest: Denies cough, dyspnea or dyspnea on exertion Gastrointestinal Gastrointestinal: Reports abdominal pain, nausea and vomiting; Denies diarrhea Genitourinary Genitourinary ED: Denies dysuria, hematuria or urinary frequency Musculoskeletal Musculoskeletal: Denies back pain, extremity pain or neck pain Integumentary Denies rash or wounds Neurologic Neurologic: Denies headache(s), paresthesias or weakness EXAM Physical Exam Const Vital Signs: 10/23/21 19:40 10/23/21 21:39 Temperature 97.6 F L 98.9 F Temperature Source Temporal Temporal Pulse Rate 93 99 Respiratory Rate 18 16 Blood Pressure 110/68 128/78 H Blood Pressure Mean 82 94 Pulse Ox 98 98 Oxygen Delivery Method Room Air Positive well nourished and well developed General Appearance ED: well developed and NAD HEENT Reports moist mucous membranes normocephalic and atraumatic Eyes PERRL, EOMs intact bilaterally and conjunctivae normal General Eye ED: Yes normal appearance of both eyes Neck no lymphadenopathy and supple General: Negative for tenderness Chest Wall Chest: Negative for tenderness Resp normal respiratory effort and normal air movement Effort and Inspection: symmetric chest movement; Negative for respiratory distress Cardio regular rate, regular rhythm and no murmurs Peripheral Pulses: pulses 2+ throughout GI normal to inspection, nondistended, normoactive bowel sounds GI Narrative: Tender palpation mid abdomen. No guarding or rebound. Negative Cantrell's or McBurney's tenderness. Palpation: Negative for guarding or rebound tenderness present Back/Spine no CVA tenderness and no thoracic nor lumbar tenderness Extremity normal to inspection General Extremety ED: Negative for edema or tenderness General Extremity: Negative for edema Neuro oriented x3 and no sensory deficits noted Sensorium / Orientation: awake and alert Skin no rashes or lesions noted and no wounds MDM MDM MDM Narrative Medical decision making narrative: Patient mid abdominal tenderness there is mild right lower quadrant tenderness. Patient given IV fluids, Zofran, Levsin. Abdominal labs all normal white count of 5.4 urine noted occult blood no infection hCG negative. 2144: Reevaluation nausea improved still has abdominal discomfort bartender helper same areas. Discussed further work-up with imaging for which she would like. CT scan abdomen pelvis ordered for further evaluation. 2229: Results of CT negative inflammation right lower quadrant appendix not visualized. Notes left ovarian cyst 1.9 cm reported hemorrhagic. Trace pelvic free fluid. Not hypotensive. She is nontender in this area on reevaluation. Discussed with patient continue oral fluids for vomiting Tylenol as needed Zofran sent to her pharmacy. Strict return precaution discussed. All questions answered. Lab Data Attestation: I reviewed the patient's lab results. Labs: Laboratory Results - last 24 hr 10/23/21 10/23/21 10/23/21 20:00 20:00 20:15 WBC 5.4 RBC 4.09 L Hgb 12.8 Hct 37.6 MCV 91.9 MCH 31.3 MCHC 34.0 RDW Std Deviation 39.9 RDW Coeff of Jonathan 11.9 Plt Count 186 MPV 9.9 Immature Gran % (Auto) 0.200 Neut % (Auto) 62.1 Lymph % (Auto) 29.6 [place] % (Auto) 6.8 Eos % (Auto) 0.6 Baso % (Auto) 0.7 Absolute Neuts (auto) 3.4 Absolute Lymphs (auto) 1.61 Nucleated RBC % 0 Sodium 138 Potassium 3.9 Chloride 108 H Carbon Dioxide 25.0 Anion Gap 5 BUN 10 Creatinine 0.77 Estim Creat Clear Calc 107.77 Est GFR (MDRD) Af Amer 113 Est GFR (MDRD) Non-Af 93 BUN/Creatinine Ratio 13.0 Glucose 96 Calcium 9.2 Total Bilirubin 0.30 Direct Bilirubin 0.06 AST 12 L ALT 20 Alkaline Phosphatase 47 Total Protein 7.3 Albumin 3.9 Globulin 3.4 Lipase 127 Urine Color Yellow Urine Clarity Sl. Cloudy Urine pH 6.0 Ur Specific [place] 1.025 Urine Protein Negative Urine Glucose (UA) Normal Urine Ketones 5 H Urine Occult Blood 50 H Urine Nitrite Negative Urine Bilirubin Negative Urine Urobilinogen Normal Ur Leukocyte Esterase Negative Urine RBC 0-5 SEEN Urine WBC 0-5 SEEN Ur Squamous Epith Cells 5-10 SEEN Urine Bacteria 1+ Urine Mucus 0 SEEN Urine Test Negative Radiography Diagnostic Testing: Clinical Impression(s) from Imaging Studies Abdomen/Pelvis CT 10/23/21 21:53 IMPRESSION: Small involuting left ovarian hemorrhagic cyst with trace dependent pelvic free fluid. Moderate colonic stool. Electronically Signed: Low Shah MD at 22:27 EDT Reading Location ID and State: Pending sale to [facility] / MD Tel , Service support , Discharge Plan Triage Chief Complaint: Nausea/Vomiting ED Provider: Aris Briggs Dx/Rx/DC Orders Clinical Impression: Abdominal pain, Nausea & vomiting, Cyst of left ovary Instructions: Abdominal Pain, ED Ovarian Cyst, ED Vomiting (Adult) Prescriptions: New ondansetron 4 mg tablet,disintegrating 4 mg PO Q6H PRN (Reason: nausea and vomiting) Qty: 10 RF: 0 No Action ondansetron 4 mg tablet,disintegrating 4 mg PO Q8H PRN (Reason: nausea and vomiting) Qty: 10 RF: 0 bisacodyl [Dulcolax (bisacodyl)] 5 mg tablet,delayed release (DR/EC) 10 mg PO QHS 2 Days Qty: 4 RF: 0 Referrals: HUYEN MCQUEEN [Other] - 2 Days Zelda Ruby DO [STAFF PHYSICIAN] - 1 Week Activity Restrictions/Additional Instructions: CT scan no inflammation of the right lower quadrant. Left ovarian cyst of 1.9 cm. Follow-up with [facility]. Continue oral fluids. Monitor for any worsening symptoms to return. Disposition Disposition: Home, Self Care Discharge Date/Time: 10/23/21 22:42
[2021-10-23 20:06] LABS: Absolute Lymphocyte Count 1.61 X10^3/uL (0.83-4.51); Absolute Neutrophil Count 3.4 X10^3/uL (2.0-7.7); Basophil# 0.04 X10^3/uL; Basophil% 0.7 % (0-1); Eosinophil# 0.03 X10^3/uL; Eosinophils% 0.6 % (0-5); Hematocrit 37.6 % (37-47); Hemoglobin 12.8 g/dL (12.0-15.0); Lymphocyte # 1.61 X10^3/ul (0.83-4.51); Lymphocyte % 29.6 % (19-41); Mean Corpuscular Hgb 31.3 pg (27.0-32.0); Mean Corpuscular Volume 91.9 fL (81-99); Mean Platelet Vol. 9.9 fl (6.2-12.0); Monocyte# 0.37 X10^3/uL; Monocyte% 6.8 % (0-10); NRBC Flagged by Analyzer 0 % (0-5); Neutrophil # 3.38 X10^3/uL (2.7-7.7); Neutrophil % 62.1 % (47-70); Platelet Count 186 K/mm3 (150-450); RBC Distribution Width CV 11.9 % (11.6-14.6); RBC Distribution Width SD 39.9 fl (35.1-43.9); Red Blood Count 4.09 M/mm3 (4.2-5.4); White Blood Count 5.4 K/mm3 (4.4-11.0)
[2021-10-23] MEDS: 0.9% Normal Saline 1,000 ML 1000 ML IV (20:14)
[2021-10-23] MEDS: Ondansetron 4 MG/2 ML Vial IV (20:15)
[2021-10-23] MEDS: Hyoscyamine Sulfate 0.125 MG Tablet SL (20:15)
[2021-10-23 20:20] LABS: Mucous, Urine 0 SEEN /hpf (<or=2+)
[2021-10-23 20:23] LABS: Color, Urine Yellow (Yellow); Glucose, Dipstick Normal (Normal); Ketone-Dipstick 5 mg/dl (Negative); Leukocyte Esterase-Dipstick Negative /ul (Negative); Nitrite-Dipstick Negative (Negative); Occult Blood-Urine 50 /ul (Negative); Protein-Dipstick Negative (Negative); Specific Gravity, Urine 1.025 (1.002-1.030); Urine Bilirubin Dipstick Negative (Negative); Urine Clarity Sl. Cloudy (Clear); Urine Urobilinogen Normal (Normal)
[2021-10-23 20:29] LABS: Bacteria 1+ /hpf (None Seen)
[2021-10-23 20:30] LABS: Internal QC Validated? YES +Cl - CLEAR BKGD; Pregnancy, Urine Negative Negative; Red Blood Cells-Urine 0-5 SEEN /hpf (0-5); Squamous Epithelial Cells - UA 5-10 SEEN /hpf (5-10); White Blood Cells 0-5 SEEN /hpf (0-5)
[2021-10-23 20:39] LABS: AST(SGOT) 12 U/L (15-37); Alanine Aminotransfer ALT/SGPT 20 U/L (13-56); Albumin, Serum 3.9 g/dL (3.2-5.0); Alkaline Phosphatase 47 U/L (45-117); Anion Gap 5 (5-15); BUN 10 mg/dL (7-18); Bilirubin, Direct 0.06 mg/dL (0.00-0.30); Calcium,Total 9.2 mg/dL (8.5-10.1); Chloride 108 mmol/L (98-107); Creatinine, Serum 0.77 mg/dL (0.55-1.02); EST Glomerular Filtration Rate 93 mL/min (>60); Est Glom Filt Rate - Afr Amer 113 mL/min (>60); Estimated Creatinine Clearance 107.77 ml/min; Globulin 3.4 g/dL (2.2-4.2); Glucose 96 mg/dL (74-106); Lipase 127 U/L (73-393); Potassium 3.9 mmol/L (3.5-5.1); Protein, Total 7.3 g/dL (6.4-8.2); Sodium Level 138 mmol/L (136-145)
[2021-10-23 21:39] VITALS: BP 128/78; PULSE 99; RESP 16; TEMP 37.2; O2SAT 98
--- NOTE | 2021-10-23 21:53 | CT_ITS ---
INDICATION: lower abd pain EXAMINATION: CT ABDOMEN AND PELVIS WITH CONTRAST - CT Abdomen And Pelvis W/ Contrast Injection TECHNIQUE: Helically acquired images were obtained of the abdomen and pelvis following IV contrast. A radiation dose optimization technique was used for this scan. IV Contrast dosage and agent: 100 mL Isovue-300 Oral contrast: None. COMPARISON: August 16, 2021. FINDINGS: LOWER CHEST: Lung bases are clear. No cardiomegaly or pericardial effusion. LIVER: Homogeneous. No focal mass. GALLBLADDER AND BILIARY TREE: No calcified gallstones. No gallbladder distension or wall edema. No intra- or extrahepatic biliary ductal dilation. PANCREAS: No focal cystic or solid mass. SPLEEN: Normal size without focal cystic or solid mass. ADRENAL GLANDS: No nodules. KIDNEYS AND URETERS: Normal renal size and position. No hydronephrosis. PERITONEUM: No free air. Trace likely physiologic pelvic free fluid.. No other fluid collection. BOWEL: Appendix is not definitively seen. No right lower quadrant inflammation to suggest appendicitis. No stomach or bowel distension. No focal inflammatory change. Moderate colonic stool burden. LYMPH NODES: No enlarged mesenteric or retroperitoneal lymph nodes. VESSELS: Aorta is non-dilated. URINARY BLADDER: Unremarkable. REPRODUCTIVE ORGANS: Unremarkable uterus. Involuting left ovarian 1.9 cm hemorrhagic cyst. No evidence of right ovarian mass.. ABDOMINAL WALL: No discrete abdominal or pelvic wall hernia. BONES: No lytic or blastic abnormality. CT/Abdomen/Pelvis W IV Cont ONLY IMPRESSION: Small involuting left ovarian hemorrhagic cyst with trace dependent pelvic free fluid. Moderate colonic stool. Electronically Signed: Low Shah MD at 22:27 EDT ,
== END 2021-10-23 22:42 | disposition home or self-care (01) ==
PROVIDERS: Emergency Provider Emergency Medicine; Visit Provider Emergency Medicine
DX: R11.2 Nausea with vomiting, unspecified (principal); R10.31 Right lower quadrant pain; N83.202 Unspecified ovarian cyst, left side
CPT/HCPCS: 74177; 80048; 80076; 81001; 81025; 83690; 85025; 96361; 96374; 99284; Q9967; A4216; J2405

== ENCOUNTER 2021-10-26 23:21 | Emergency (ER) | payer BC, MEDICAID, SELFPAY ==
[2021-10-26 23:23] VITALS: BP 105/60; PULSE 80; RESP 16; TEMP 36.8; O2SAT 98; BMI 23.5
--- NOTE | 2021-10-27 | EDS_ITS ---
HPI HPI - GI History of Present Illness Chief Complaint: Abd Pain Abdominal Pain/Flank Pain Onset: Today and Hours (3) Context: Gradual Onset Timing: Continuous Quality: Burning Location: RUQ and - (Radiates into her back) Worsened by: Food Relieved by: Nothing Nausea/Vomiting/Emesis GI Symptom: Positive for Nausea; Negative for Vomiting Diarrhea/Melena/Hematochezia GI Symptom: Positive for Diarrhea; Negative for Melena and Hematochezia Associated Symptoms Associated Symptoms: Negative for Dysuria, Frequency, Hematuria and Urgency LMP: 3 weeks ago Narrative Narrative: StayPatient presents with abdominal [facility] that [facility]. Patient states it is over her right upper quadrant. Patient states it radiates into her back. It is worse after eating. Patient states that she has been eating some bland foods. Patient states she has had some diarrhea last week but denies any diarrhea, melena, or hematochezia currently. Patient denies any fevers or chills. Patient states she contacted her primary care physician who told her to [facility] PFS Medical History Abnormal weight loss Arthritis Chest pain Chronic neck and back pain Fatigue Fever History of attempted suicide Limb weakness Mitral valve regurgitation Shoulder pain SOB (shortness of breath) Home Medications ondansetron 4 mg PO Q6H PRN #10 tab 10/23/21 [Rx Last Taken Unknown] hydrocodone-acetaminophen 1 tab PO Q6H PRN PRN 3 Days #10 tablet 10/27/21 [Rx Last Taken Unknown] ondansetron 4 mg PO Q8H PRN #10 tab 10/27/21 [Rx Last Taken Unknown] Allergy/AdvReac Type Severity Reaction Status Date / Time cinnamon Allergy unknown Verified 10/23/21 19:41 horse dander Allergy Itching Verified 10/23/21 19:41 Family History Other Anemia Heart defect Heart enlarged Hypoglycemia Surgical History no surgical history no surgical history Social History Smoking Status: Never smoker alcohol intake: never ROS ROS ED Constitutional Constitutional ED: Denies chills or fever(s) Eyes Eyes: Denies blurry vision or change in vision ENT ENT ED: Denies rhinorrhea or sore throat Cardiovascular Cardiovascular: Denies chest pain or palpitations Respiratory/Chest Respiratory/Chest: Denies cough or dyspnea Gastrointestinal Gastrointestinal: Reports abdominal pain, diarrhea and nausea; Denies melena or vomiting Genitourinary Genitourinary ED: Denies dysuria or hematuria Musculoskeletal Musculoskeletal: Reports back pain; Denies neck pain Integumentary Denies abscess or rash Neurologic Neurologic: Reports headache(s); Denies weakness Allergic/Immunologic Allergic/Immunologic ED: Denies mouth swelling or urticaria EXAM Physical Exam Const Vital Signs: 10/26/21 23:23 Temperature 98.2 F Temperature Source Oral Pulse Rate 80 Respiratory Rate 16 Blood Pressure 105/60 Blood Pressure Mean 75 Pulse Ox 98 Oxygen Delivery Method Room Air Positive well nourished and well developed General Appearance ED: well developed HEENT Reports moist mucous membranes Neck supple and no JVD Resp normal respiratory effort and clear to auscultation bilaterally Cardio regular rate, regular rhythm and no murmurs GI normal to inspection, nondistended, normoactive bowel sounds and non-distended Palpation: soft, tender RUQ and guarding; Negative for rebound tenderness present Extremity normal to inspection General Extremety ED: Negative for edema or tenderness General Extremity: Negative for edema Neuro oriented x3, CN's II-XII intact bilaterally and no sensory deficits noted Sensorium / Orientation: alert Motor Exam: strength 5/5 throughout Psych mental status grossly normal Skin no rashes or lesions noted MDM MDM MDM Narrative Medical decision making narrative: Patient was given IV fluids, morphine, and Zofran here. CBC was within normal limits. Comprehensive metabolic profile was normal. Lipase was normal. Serum hCG was negative. Urinalysis does not show any evidence of urinary tract infection. Patient is feeling better on reevaluation. Patient was advised of her findings. Patient was advised that this could still be pain from her gallbladder however, it does not need to be removed emergently tonight. Patient was advised that we were unable to do an ultrasound here tonight. Patient was instructed to follow-up with her primary care physician for further evaluation in 3 to 5 days. Patient was also given a referral for surgery. Patient was given prescriptions for Benson and Zofran. Patient was instructed to start with a liquid diet and advance as tolerated. Patient was instructed to avoid fried foods, fatty foods, greasy foods. Patient understood and was agreeable with the plan. All questions were answered. Lab Data Labs: Laboratory Results - last 24 hr 10/26/21 10/26/21 10/26/21 23:50 23:50 23:50 WBC 8.1 RBC 4.56 Hgb 14.5 Hct 41.8 MCV 91.7 MCH 31.8 MCHC 34.7 RDW Std Deviation 38.8 RDW Coeff of Jonathan 11.4 L Plt Count 232 MPV 10.5 Immature Gran % (Auto) 1.500 H Neut % (Auto) 65.6 Lymph % (Auto) 23.3 [place] % (Auto) 7.8 Eos % (Auto) 1.1 Baso % (Auto) 0.7 Absolute Neuts (auto) 5.3 Absolute Lymphs (auto) 1.88 Nucleated RBC % 0 Sodium 138 Potassium 3.9 Chloride 107 Carbon Dioxide 24.0 Anion Gap 7 BUN 14 Creatinine 0.74 Estim Creat Clear Calc 108.10 Est GFR (MDRD) Af Amer 117 Est GFR (MDRD) Non-Af 97 BUN/Creatinine Ratio 18.8 Glucose 89 Calcium 9.0 Total Bilirubin 0.20 AST 13 L ALT 23 Alkaline Phosphatase 54 Total Protein 7.9 Albumin 4.1 Globulin 3.8 Albumin/Globulin Ratio 1.1 Lipase 175 Serum , Qual NEGATIVE Urine Color Urine Clarity Urine pH Ur Specific [place] Urine Protein Urine Glucose (UA) Urine Ketones Urine Occult Blood Urine Nitrite Urine Bilirubin Urine Urobilinogen Ur Leukocyte Esterase Urine RBC Urine WBC Ur Squamous Epith Cells Urine Bacteria Urine Mucus 10/27/21 00:12 WBC RBC Hgb Hct MCV MCH MCHC RDW Std Deviation RDW Coeff of Jonathan Plt Count MPV Immature Gran % (Auto) Neut % (Auto) Lymph % (Auto) [place] % (Auto) Eos % (Auto) Baso % (Auto) Absolute Neuts (auto) Absolute Lymphs (auto) Nucleated RBC % Sodium Potassium Chloride Carbon Dioxide Anion Gap BUN Creatinine Estim Creat Clear Calc Est GFR (MDRD) Af Amer Est GFR (MDRD) Non-Af BUN/Creatinine Ratio Glucose Calcium Total Bilirubin AST ALT Alkaline Phosphatase Total Protein Albumin Globulin Albumin/Globulin Ratio Lipase Serum , Qual Urine Color Yellow Urine Clarity Clear Urine pH 7.0 Ur Specific [place] 1.010 Urine Protein Negative Urine Glucose (UA) Normal Urine Ketones Negative Urine Occult Blood Negative Urine Nitrite Negative Urine Bilirubin Negative Urine Urobilinogen Normal Ur Leukocyte Esterase Negative Urine RBC 0-5 SEEN Urine WBC 0 SEEN Ur Squamous Epith Cells 0-5 SEEN Urine Bacteria 1+ Urine Mucus 0 SEEN Discharge Plan Triage Chief Complaint: Abd Pain ED Provider: Jorge A Vasquez Dx/Rx/DC Orders Clinical Impression: Right upper quadrant abdominal pain Instructions: ED Abdominal Pain Unkn Cause Fem, ED Abdominal Pain Gallstone Poss Prescriptions: New hydrocodone-acetaminophen [hydrocodone-acetaminophen] 1 TABLET tablet 1 tab PO Q6H PRN PRN (Reason: Pain) 3 Days Qty: 10 RF: 0 Continued ondansetron 4 mg tablet,disintegrating 4 mg PO Q8H PRN (Reason: nausea and vomiting) Qty: 10 RF: 0 No Action ondansetron 4 mg tablet,disintegrating 4 mg PO Q6H PRN (Reason: nausea and vomiting) Qty: 10 RF: 0 Referrals: RICHAR ROLDAN [Other] - 3-5 Days Dorian Clemons MD [STAFF PHYSICIAN] - 3-5 Days Disposition Disposition: Home, Self Care
[2021-10-27] MEDS: Morphine 4 MG/ML Syringe IV (00:14)
[2021-10-27] MEDS: 0.9% Normal Saline 1,000 ML 1000 ML IV (00:14)
[2021-10-27] MEDS: Ondansetron 4 MG/2 ML Vial IV (00:14)
[2021-10-27 00:17] LABS: Mucous, Urine 0 SEEN /hpf (<or=2+); White Blood Cells 0 SEEN /hpf (0-5)
[2021-10-27 00:17] LABS: Absolute Lymphocyte Count 1.88 X10^3/uL (0.83-4.51); Absolute Neutrophil Count 5.3 X10^3/uL (2.0-7.7); Basophil# 0.06 X10^3/uL; Basophil% 0.7 % (0-1); Eosinophil# 0.09 X10^3/uL; Eosinophils% 1.1 % (0-5); Hematocrit 41.8 % (37-47); Hemoglobin 14.5 g/dL (12.0-15.0); Lymphocyte # 1.88 X10^3/ul (0.83-4.51); Lymphocyte % 23.3 % (19-41); Mean Corp Hgb Conc 34.7 g/dL (32-36); Mean Corpuscular Hgb 31.8 pg (27.0-32.0); Mean Corpuscular Volume 91.7 fL (81-99); Mean Platelet Vol. 10.5 fl (6.2-12.0); Monocyte# 0.63 X10^3/uL; Monocyte% 7.8 % (0-10); NRBC Flagged by Analyzer 0 % (0-5); Neutrophil # 5.28 X10^3/uL (2.7-7.7); Neutrophil % 65.6 % (47-70); Platelet Count 232 K/mm3 (150-450); RBC Distribution Width CV 11.4 % (11.6-14.6); RBC Distribution Width SD 38.8 fl (35.1-43.9); Red Blood Count 4.56 M/mm3 (4.2-5.4); White Blood Count 8.1 K/mm3 (4.4-11.0)
[2021-10-27 00:19] LABS: Color, Urine Yellow (Yellow); Glucose, Dipstick Normal (Normal); Ketone-Dipstick Negative (Negative); Leukocyte Esterase-Dipstick Negative /ul (Negative); Nitrite-Dipstick Negative (Negative); Occult Blood-Urine Negative /ul (Negative); Protein-Dipstick Negative (Negative); Urine Bilirubin Dipstick Negative (Negative); Urine Clarity Clear (Clear); Urine Urobilinogen Normal (Normal)
[2021-10-27 00:27] LABS: Internal QC Validated? YES +Cl - CLEAR BKGD; Pregnancy, Serum, hCG Quali. NEGATIVE Negative
[2021-10-27 00:33] LABS: ALB/GLOB Ratio 1.1 RATIO (0.9-2.4); AST(SGOT) 13 U/L (15-37); Alanine Aminotransfer ALT/SGPT 23 U/L (13-56); Albumin, Serum 4.1 g/dL (3.2-5.0); Alkaline Phosphatase 54 U/L (45-117); Anion Gap 7 (5-15); BUN 14 mg/dL (7-18); BUN/Creat Ratio 18.8 RATIO (10-20); Chloride 107 mmol/L (98-107); Creatinine, Serum 0.74 mg/dL (0.55-1.02); EST Glomerular Filtration Rate 97 mL/min (>60); Est Glom Filt Rate - Afr Amer 117 mL/min (>60); Globulin 3.8 g/dL (2.2-4.2); Glucose 89 mg/dL (74-106); Lipase 175 U/L (73-393); Potassium 3.9 mmol/L (3.5-5.1); Protein, Total 7.9 g/dL (6.4-8.2); Sodium Level 138 mmol/L (136-145)
[2021-10-27 00:45] LABS: Bacteria 1+ /hpf (None Seen); Red Blood Cells-Urine 0-5 SEEN /hpf (0-5); Squamous Epithelial Cells - UA 0-5 SEEN /hpf (5-10)
[2021-10-27 01:34] VITALS: BP 125/63; PULSE 73; RESP 16; O2SAT 95
== END 2021-10-27 01:34 | disposition home or self-care (01) ==
PROVIDERS: Emergency Provider Emergency Medicine; Visit Provider Emergency Medicine
DX: R10.11 Right upper quadrant pain (principal)
CPT/HCPCS: 80053; 81001; 83690; 84703; 85025; 96361; 96374; 96375; 99282; J7030; J2405

== ENCOUNTER 2021-11-21 09:38 | Emergency (ER) | payer BC, MEDICAID, SELFPAY ==
[2021-11-21 09:38] VITALS: BP 131/68; PULSE 79; RESP 18; TEMP 36.7; O2SAT 99; BMI 26.6
--- NOTE | 2021-11-21 09:54 | ED.VIS.GI ---
HPI HPI - GI History of Present Illness Chief Complaint: Abd Pain Informant: patient Abdominal Pain/Flank Pain Onset: Today Context: Gradual Onset Timing: Continuous Quality: Aching Location: Diffuse Current Severity: Mild Maximum Severity: Mild Worsened by: Nothing Relieved by: Nothing Nausea/Vomiting/Emesis GI Symptom: Negative for Nausea or Vomiting Diarrhea/Melena/Hematochezia GI Symptom: Negative for Diarrhea, Melena or Hematochezia Associated Symptoms Associated Symptoms: Negative for Dysuria, Frequency, Hematuria or Urgency Narrative Narrative: 31-year-old female no seen past medical history has been worked up recently for gallbladder and abdominal pain of uncertain cause. She had a CAT scan done to the emergency department and labs the first week of October which were unremarkable. States that she has had abdominal pain for about the last half an hour more right-sided. Denies any nausea vomiting or diarrhea. Denies any dysuria. Denies any vaginal bleeding or discharge. Last menstrual period was about 2 weeks ago. She has had no prior abdominal surgeries. Denies any trauma. No fever. Prior similar symptoms: Yes Recent Illness/Hospitalization: No PFSH PFSH Medical History Abnormal weight loss Arthritis Chest pain Chronic neck and back pain Fatigue Fever History of attempted suicide Limb weakness Mitral valve regurgitation Shoulder pain SOB (shortness of breath) Home Medications ondansetron 4 mg disintegrating tablet 4 mg PO Q6H PRN nausea and vomiting #10 tabs 10/23/21 [Rx Last Taken Unknown] hydrocodone-acetaminophen 5-325mg 5mg-325mg 1 tab PO Q6H PRN PRN Pain 3 days #10 TABLETS 10/27/21 [Rx Last Taken Unknown] ondansetron 4 mg disintegrating tablet 4 mg PO Q8H PRN nausea and vomiting #10 tabs 10/27/21 [Rx Last Taken Unknown] Allergy/AdvReac Type Severity Reaction Status Date / Time cinnamon Allergy unknown Verified 10/23/21 19:41 horse dander Allergy Itching Verified 10/23/21 19:41 Family History Other Anemia Heart defect Heart enlarged Hypoglycemia Social History Smoking Status: Never smoker alcohol intake: never ROS ROS ED ROS Narrative Abdominal pain. Weight loss. Review of Systems ROS Unobtainable: Denies due to encephalopathy Constitutional Constitutional ED: Denies chills ENT ENT ED: Denies ear pain Cardiovascular Cardiovascular: Denies chest pain Respiratory/Chest Respiratory/Chest: Denies cough Gastrointestinal Gastrointestinal: Reports abdominal pain Genitourinary Genitourinary ED: Denies dysuria Musculoskeletal Musculoskeletal: Denies arthralgias Integumentary Denies abscess Neurologic Neurologic: Denies headache(s) Psychiatric Psychiatric: Denies anxiety Endocrine Endocrinology: Denies polydipsia Hematologic/Lymphatic Hematologic/Lymphatic: Denies easy bleeding Allergic/Immunologic Allergic/Immunologic ED: Denies mouth swelling EXAM Physical Exam Narrative Exam Narrative: 31-year-old no acute distress. Vital signs stable afebrile. H EENT normal. Moist with memories. Lungs are clear. Heart regular rhythm. Abdomen soft nondistended normal bowel sounds no peritoneal signs. Diffusely tender. No hernia or mass. No obstruction. Moving all 4 extremities. Back nontender. Neurologically awake and alert. Const Vital Signs: 11/21/21 09:38 Temperature 98.0 F Temperature Source Temporal Pulse Rate 79 Respiratory Rate 18 Blood Pressure 131/68 H Blood Pressure Mean 89 Pulse Ox 99 Oxygen Delivery Method Room Air Positive well nourished and well developed; Negative for obese, cachectic, contractures or unkempt General Appearance ED: well developed; Negative for unkempt, cachectic or contractures Nutritional Appearance: Negative for cachectic or obese HEENT Reports moist mucous membranes normocephalic and atraumatic; Negative for trauma or tenderness Eyes PERRL and EOMs intact bilaterally General Eye ED: Negative for pale conjunctiva Neck no lymphadenopathy, supple and no JVD Resp normal respiratory effort and clear to auscultation bilaterally Effort and Inspection: Negative for respiratory distress or retractions Auscultation: Negative for rales, rhonchi or wheezes Cardio regular rate, regular rhythm, S1 normal heart sound and S2 normal heart sound GI non-distended and no masses; Negative for non-tender Inspection: abdominal distention Auscultation: normoactive bowel sounds Palpation: soft and tender; Negative for guarding, rigid, hepatomegaly, splenomegaly, hernia, mass, pulsatile mass or rebound tenderness present Back/Spine no CVA tenderness General Back: Negative for CVA tenderness Cervical Spine: Negative for cervical spine tenderness Thoracic Spine / Upper Back: Negative for thoracic spinal tenderness Lumbar Spine / Lower Back: Negative for lumbar spinal tenderness Extremity full ROM General Extremety ED: Negative for edema or tenderness General Extremity: Negative for edema Neuro CN's II-XII intact bilaterally, moves all extremities, no sensory deficits noted and No gait normal Sensorium / Orientation: alert, oriented to person, oriented to place and oriented to time; Negative for orientation impaired, confused, lethargic or stuporous Psych Appearance: Negative for unkempt Skin no wounds General Skin Exam: Negative for jaundice Lesions: no lesions Rashes: no rashes Trauma: Negative for abrasion Nails: Negative for discolored MDM MDM MDM Narrative Medical decision making narrative: 31-year-old with acute on chronic abdominal pain. Exam benign except for some abdominal tenderness. It is diffuse. Nonlocalizing. Clinically does not seem to be appendicitis or gallbladder. There is no hernia. No mass. No obstruction. Labs will be obtained. She did not need anything currently for pain or nausea. Repeat exam 12:15 PM patient doing well. We went over all of her test results. She is very frustrated that she has no diagnosis. She seen a GI physician in [place]. She has a pending HIDA scan next week. She has had a negative CAT scan within the last month or so and a negative ultrasound. She has nausea medications at home. I explained to her there is really no other additional tests I can do today. She will be discharged to home. Lab Data Attestation: I reviewed the patient's lab results. Lab results narrative: CBC normal. White count of 5. H&H of 13 and 39. Electrolytes unremarkable gap of 5. Normal BUN of 9 creatinine 0.7. Liver enzymes are unremarkable. Lipase normal at 208. Serum test negative. Urinalysis negative. No white cells, no nitrates and no bacteria. Labs: Laboratory Results - last 24 hr 11/21/21 11/21/21 11/21/21 10:00 10:00 10:00 WBC 5.6 RBC 4.27 Hgb 13.5 Hct 39.6 MCV 92.7 MCH 31.6 MCHC 34.1 RDW Std Deviation 39.3 RDW Coeff of Jonathan 11.7 Plt Count 192 MPV 10.0 Immature Gran % (Auto) 0.200 Neut % (Auto) 59.2 Lymph % (Auto) 32.1 Chase % (Auto) 6.4 Eos % (Auto) 1.4 Baso % (Auto) 0.7 Absolute Neuts (auto) 3.3 Absolute Lymphs (auto) 1.81 Nucleated RBC % 0 Sodium 140 Potassium 3.6 Chloride 109 H Carbon Dioxide 26.0 Anion Gap 5 BUN 9 Creatinine 0.70 Estim Creat Clear Calc 114.28 Est GFR (MDRD) Af Amer 126 Est GFR (MDRD) Non-Af 104 BUN/Creatinine Ratio 12.9 Glucose 118 H Calcium 9.1 Total Bilirubin 0.30 AST 12 L ALT 22 Alkaline Phosphatase 49 Total Protein 7.1 Albumin 3.8 Globulin 3.3 Albumin/Globulin Ratio 1.2 Lipase 208 Serum , Qual NEGATIVE Urine Color Urine Clarity Urine pH Ur Specific [place] Urine Protein Urine Glucose (UA) Urine Ketones Urine Occult Blood Urine Nitrite Urine Bilirubin Urine Urobilinogen Ur Leukocyte Esterase Urine RBC Urine WBC Ur Squamous Epith Cells Urine Bacteria Urine Mucus 11/21/21 10:20 WBC RBC Hgb Hct MCV MCH MCHC RDW Std Deviation RDW Coeff of Jonathan Plt Count MPV Immature Gran % (Auto) Neut % (Auto) Lymph % (Auto) Chase % (Auto) Eos % (Auto) Baso % (Auto) Absolute Neuts (auto) Absolute Lymphs (auto) Nucleated RBC % Sodium Potassium Chloride Carbon Dioxide Anion Gap BUN Creatinine Estim Creat Clear Calc Est GFR (MDRD) Af Amer Est GFR (MDRD) Non-Af BUN/Creatinine Ratio Glucose Calcium Total Bilirubin AST ALT Alkaline Phosphatase Total Protein Albumin Globulin Albumin/Globulin Ratio Lipase Serum , Qual Urine Color Yellow Urine Clarity Sl. Cloudy Urine pH 6.5 Ur Specific [place] 1.020 Urine Protein Negative Urine Glucose (UA) Normal Urine Ketones Negative Urine Occult Blood 10 H Urine Nitrite Negative Urine Bilirubin Negative Urine Urobilinogen Normal Ur Leukocyte Esterase 25 H Urine RBC 0 SEEN Urine WBC 0-5 SEEN Ur Squamous Epith Cells 10-25 SEEN Urine Bacteria 0 SEEN Urine Mucus 0 SEEN Discharge Plan Triage Chief Complaint: Abd Pain ED Provider: Srinivasan Banerjee Dx/Rx/DC Orders Prescriptions: No Action ondansetron 4 mg tablet,disintegrating 4 mg PO Q6H PRN (Reason: nausea and vomiting) Qty: 10 0RF hydrocodone-acetaminophen [hydrocodone-acetaminophen] 1 TABLET tablet 1 tab PO Q6H PRN PRN (Reason: Pain) 3 Days Qty: 10 0RF ondansetron 4 mg tablet,disintegrating 4 mg PO Q8H PRN (Reason: nausea and vomiting) Qty: 10 0RF Primary Care Provider: [facility] Doctor,Out of Referrals: [facility] Doctor,Out of [Primary Care Provider] -
[2021-11-21 10:09] LABS: Absolute Lymphocyte Count 1.81 X10^3/uL (0.83-4.51); Absolute Neutrophil Count 3.3 X10^3/uL (2.0-7.7); Basophil# 0.04 X10^3/uL; Basophil% 0.7 % (0-1); Eosinophil# 0.08 X10^3/uL; Eosinophils% 1.4 % (0-5); Hematocrit 39.6 % (37-47); Hemoglobin 13.5 g/dL (12.0-15.0); Lymphocyte # 1.81 X10^3/ul (0.83-4.51); Lymphocyte % 32.1 % (19-41); Mean Corp Hgb Conc 34.1 g/dL (32-36); Mean Corpuscular Hgb 31.6 pg (27.0-32.0); Mean Corpuscular Volume 92.7 fL (81-99); Monocyte# 0.36 X10^3/uL; Monocyte% 6.4 % (0-10); NRBC Flagged by Analyzer 0 % (0-5); Neutrophil # 3.34 X10^3/uL (2.7-7.7); Neutrophil % 59.2 % (47-70); Platelet Count 192 K/mm3 (150-450); RBC Distribution Width CV 11.7 % (11.6-14.6); RBC Distribution Width SD 39.3 fl (35.1-43.9); Red Blood Count 4.27 M/mm3 (4.2-5.4); White Blood Count 5.6 K/mm3 (4.4-11.0)
[2021-11-21 10:19] LABS: Internal QC Validated? YES +Cl - CLEAR BKGD; Pregnancy, Serum, hCG Quali. NEGATIVE Negative
[2021-11-21 10:26] LABS: Bacteria 0 SEEN /hpf (None Seen); Color, Urine Yellow (Yellow); Glucose, Dipstick Normal (Normal); Ketone-Dipstick Negative (Negative); Leukocyte Esterase-Dipstick 25 /ul (Negative); Mucous, Urine 0 SEEN /hpf (<or=2+); Nitrite-Dipstick Negative (Negative); Occult Blood-Urine 10 /ul (Negative); Protein-Dipstick Negative (Negative); Red Blood Cells-Urine 0 SEEN /hpf (0-5); Urine Bilirubin Dipstick Negative (Negative); Urine Clarity Sl. Cloudy (Clear); Urine Urobilinogen Normal (Normal); Urine pH 6.5 (5.0 - 8.0)
[2021-11-21 10:30] LABS: ALB/GLOB Ratio 1.2 RATIO (0.9-2.4); AST(SGOT) 12 U/L (15-37); Alanine Aminotransfer ALT/SGPT 22 U/L (13-56); Albumin, Serum 3.8 g/dL (3.2-5.0); Alkaline Phosphatase 49 U/L (45-117); Anion Gap 5 (5-15); BUN 9 mg/dL (7-18); BUN/Creat Ratio 12.9 RATIO (10-20); Calcium,Total 9.1 mg/dL (8.5-10.1); Chloride 109 mmol/L (98-107); EST Glomerular Filtration Rate 104 mL/min (>60); Est Glom Filt Rate - Afr Amer 126 mL/min (>60); Estimated Creatinine Clearance 114.28 ml/min; Globulin 3.3 g/dL (2.2-4.2); Glucose 118 mg/dL (74-106); Lipase 208 U/L (73-393); Potassium 3.6 mmol/L (3.5-5.1); Protein, Total 7.1 g/dL (6.4-8.2); Sodium Level 140 mmol/L (136-145)
[2021-11-21 10:32] LABS: Squamous Epithelial Cells - UA 10-25 SEEN /hpf (5-10); White Blood Cells 0-5 SEEN /hpf (0-5)
[2021-11-21 11:38] VITALS: RESP 18
[2021-11-21 12:21] VITALS: RESP 16
== END 2021-11-21 12:40 | disposition home or self-care (01) ==
PROVIDERS: Emergency Provider Emergency Medicine; Visit Provider Emergency Medicine
DX: R10.9 Unspecified abdominal pain (principal); G89.29 Other chronic pain
CPT/HCPCS: 80053; 81001; 83690; 84703; 85025; 99283

== ENCOUNTER 2022-01-02 09:11 | Emergency (ER) | payer BC, MEDICAID, SELFPAY ==
[2022-01-02 09:13] VITALS: BP 108/68; PULSE 76; RESP 16; TEMP 37; O2SAT 99; BMI 23.8
[2022-01-02 09:15] VITALS: BP 108/68; PULSE 76; RESP 16; TEMP 37; O2SAT 99
--- NOTE | 2022-01-02 09:53 | EDS_ITS ---
HPI History of Present Illness Chief Complaint: General Illness Informant: patient Onset/Context/Timing Onset: Days (3) Context: Gradual Onset Timing: Continuous Quality: Aching Location: Generalized Worsened by: Nothing Relieved by: Nothing Narrative Narrative: Patient presents with fatigue, aching, subjective fevers and chills. Patient states this has been getting worse over the last 3 days. Patient states it came on gradually. Patient states she feels aching all over. Patient states nothing makes it better nothing makes it worse. Patient admits to some nausea but denies any vomiting. Patient also admits to a mild rash on the dorsal aspect of her right forearm. Patient denies any cough or shortness of breath. Patient denies any chest pain. Patient denies any urinary complaints. PFSH PFS Medical History Abnormal weight loss Arthritis Chest pain Chronic neck and back pain Fatigue Fever History of attempted suicide Limb weakness Mitral valve regurgitation Shoulder pain SOB (shortness of breath) Home Medications ondansetron 4 mg disintegrating tablet 4 mg PO Q6H PRN nausea and vomiting #10 tabs 10/23/21 [Rx Last Taken Unknown] hydrocodone-acetaminophen 5-325mg 5mg-325mg 1 tab PO Q6H PRN PRN Pain 3 days #10 TABLETS 10/27/21 [Rx Last Taken Unknown] ondansetron 4 mg disintegrating tablet 4 mg PO Q8H PRN nausea and vomiting #10 tabs 10/27/21 [Rx Last Taken Unknown] Allergy/AdvReac Type Severity Reaction Status Date / Time cinnamon Allergy unknown Verified 01/02/22 09:12 horse dander Allergy Itching Verified 01/02/22 09:12 Family History Other Anemia Heart defect Heart enlarged Hypoglycemia Surgical History no surgical history no surgical history Social History Smoking Status: Never smoker alcohol intake: never ROS ROS ED Constitutional Constitutional ED: Reports chills, fever(s) and subjective Eyes Eyes: Denies blurry vision or change in vision ENT ENT ED: Reports sore throat; Denies rhinorrhea Cardiovascular Cardiovascular: Denies chest pain or palpitations Respiratory/Chest Respiratory/Chest: Denies cough or dyspnea Gastrointestinal Gastrointestinal: Reports nausea; Denies vomiting Genitourinary Genitourinary ED: Denies dysuria or hematuria Musculoskeletal Musculoskeletal: Reports back pain and myalgias; Denies neck pain Integumentary Reports rash; Denies abscess Neurologic Neurologic: Denies headache(s) or weakness Allergic/Immunologic Allergic/Immunologic ED: Denies mouth swelling or urticaria EXAM Physical Exam Const Vital Signs: 01/02/22 09:13 01/02/22 09:15 01/02/22 09:20 Temperature 98.6 F 98.6 F Temperature Source Oral Oral Pulse Rate 76 76 Respiratory Rate 16 16 Respiratory Effort Normal Non-Labored Blood Pressure 108/68 108/68 Blood Pressure Mean 81 81 Pulse Ox 99 99 Oxygen Delivery Method Room Air Room Air Positive well nourished and well developed General Appearance ED: well developed HEENT Reports TM's clear and moist mucous membranes Tympanic Membrane ED: Yes TM's clear Neck supple and no JVD Resp normal respiratory effort and clear to auscultation bilaterally Cardio regular rate, regular rhythm and no murmurs GI normal to inspection, nondistended, normoactive bowel sounds and non-tender Palpation: soft Extremity normal to inspection General Extremety ED: Negative for edema or tenderness General Extremity: Negative for edema Neuro oriented x3, CN's II-XII intact bilaterally and no sensory deficits noted Sensorium / Orientation: alert Motor Exam: strength 5/5 throughout Psych mental status grossly normal Skin Rashes: rashes noted Right forearm macule Dorsal aspect right forearm clustered erythematous dry raised nontender MDM MDM MDM Narrative Medical decision making narrative: PA and lateral chest x-ray was obtained. There are 2 views. On my interpretation, lung dupree are clear. There is normal cardiac silhouette. Bony thorax is normal. There is no acute process noted. Radiologist also interpreted the x-ray and agrees. COVID-19 rapid antigen was obtained and was negative. Influenza A and influenza B swabs were obtained and were negative. Patient was given a dose of Tylenol here. Patient was advised of her findings. Patient was advised that this is most likely a viral illness. Patient was instructed to continue Tylenol and ibuprofen as needed for any aches or fevers. Patient was instructed drink plenty of fluids. Patient was instructed to foll ow-up with her primary care physician in 5 to 7 days. Patient understood and was agreeable with the plan. All questions were answered. Radiography Chest X-Ray - ED: 2 View, Read by ED Physician, Read by Radiologist, Normal and No Acute Disease Diagnostic Testing: Clinical Impression(s) from Imaging Studies Chest X-Ray 01/02/22 10:24 IMPRESSION: Normal x-ray examination of the chest. Electronically Signed: Yogesh Jones MD at 11:07 EDT , Discharge Plan Triage Chief Complaint: General Illness ED Provider: Jorge A Vasquez Dx/Rx/DC Orders Clinical Impression: Viral illness, Fatigue Instructions: ED Viral Syndrome (Adult) Prescriptions: No Action ondansetron 4 mg tablet,disintegrating 4 mg PO Q6H PRN (Reason: nausea and vomiting) Qty: 10 0RF hydrocodone-acetaminophen [hydrocodone-acetaminophen] 1 TABLET tablet 1 tab PO Q6H PRN PRN (Reason: Pain) 3 Days Qty: 10 0RF ondansetron 4 mg tablet,disintegrating 4 mg PO Q8H PRN (Reason: nausea and vomiting) Qty: 10 0RF Primary Care Provider: RICHAR ROLDAN Referrals: RICHAR ROLDAN [Other] - 5-7 Days Disposition Disposition: Home, Self Care
[2022-01-02] MEDS: Acetaminophen 500 MG Tablet 1000 MG PO (10:09)
--- NOTE | 2022-01-02 10:24 | RAD_ITS ---
STUDY: X-RAY CHEST REASON FOR EXAM: Female, 31 years old. Cough TECHNIQUE: PA and lateral views of the chest. COMPARISON: None. FINDINGS: The lungs are clear and expanded. There is no demonstrated pleural abnormality. Normal size heart. Normal mediastinum and lorena. Normal visualized pulmonary arteries. Normal visualized aortic arch and descending thoracic aorta. Normal visualized thoracic spine. Normal visualized ribs, clavicles, and shoulders. There is no demonstrated abnormality of the visualized soft tissue structures of the upper abdomen. RAD/Chest PA and Lateral IMPRESSION: Normal x-ray examination of the chest. Electronically Signed: Yogesh Jones MD at 11:07 EDT ,
--- NOTE | 2022-01-02 12:29 | CM.ED ---
SW Note SW met with patient as it stated on tracker patient has no PCP. Patient said that she has a PCP in [facility]. SW provided patient with [facility] Healthcare Directory if patient wants a more local PCP. No further concerns voiced. SW remains available if needs arise. Cristina DE LEON
== END 2022-01-02 11:36 | disposition home or self-care (01) ==
PROVIDERS: Emergency Provider Emergency Medicine; Visit Provider Emergency Medicine
DX: B34.9 Viral infection, unspecified (principal); R53.83 Other fatigue
CPT/HCPCS: 71046; 87428; 99281; 99283

== ENCOUNTER 2022-02-02 16:28 | Emergency (ER) | payer BC, MEDICAID, SELFPAY ==
[2022-02-02 16:29] VITALS: BP 108/84; PULSE 97; RESP 16; TEMP 37; O2SAT 100; BMI 22.8
[2022-02-02 16:44] VITALS: TEMP 37.2
--- NOTE | 2022-02-02 17:33 | EX.ED.VIS.UR ---
HPI HPI - URI History of Present Illness Chief Complaint: Cough Narrative Narrative: 31-year-old female presenting with cough and shortness of breath. She states that she has had subjective fevers but has not checked her temperature. She went to work today because she felt otherwise well. She thought she would just wear a mask. When she told somebody that she had been having fevers they told her to go home and to get checked out. Patient did not do an [id number] test for COVID. She states that a lot of people were COVID and tested positive for COVID. She does not have any nausea or vomiting. She does admit to mild chills and body aches. Denies chest pain or shortness of breath. ROS ROS ED Constitutional Constitutional ED: Reports chills and subjective Eyes Eyes: Denies change in vision or diplopia ENT ENT ED: Denies rhinorrhea or sore throat Cardiovascular Cardiovascular: Denies chest pain or palpitations Respiratory/Chest Respiratory/Chest: Reports cough; Denies dyspnea Gastrointestinal Gastrointestinal: Denies abdominal pain or constipation Genitourinary Genitourinary ED: Denies dysuria or hematuria Musculoskeletal Musculoskeletal: Reports myalgias Integumentary Denies abscess or Abrasions Neurologic Neurologic: Denies headache(s) or paresthesias Psychiatric Psychiatric: Denies anxiety or depression PFSH PFS Medical History Abnormal weight loss Arthritis Chest pain Chronic neck and back pain Fatigue Fever History of attempted suicide Limb weakness Mitral valve regurgitation Shoulder pain SOB (shortness of breath) Home Medications ondansetron 4 mg disintegrating tablet 4 mg PO Q6H PRN nausea and vomiting #10 tabs 10/23/21 [Rx Last Taken Unknown] hydrocodone-acetaminophen 5-325mg 5mg-325mg 1 tab PO Q6H PRN PRN Pain 3 days #10 TABLETS 10/27/21 [Rx Last Taken Unknown] ondansetron 4 mg disintegrating tablet 4 mg PO Q8H PRN nausea and vomiting #10 tabs 10/27/21 [Rx Last Taken Unknown] Allergy/AdvReac Type Severity Reaction Status Date / Time cinnamon Allergy unknown Verified 01/02/22 09:12 horse dander Allergy Itching Verified 01/02/22 09:12 Family History Other Anemia Heart defect Heart enlarged Hypoglycemia Social History Smoking Status: Never smoker alcohol intake: never EXAM Physical Exam Const Vital Signs: 02/02/22 16:29 02/02/22 16:44 02/02/22 16:45 Temperature 98.6 F 98.9 F Temperature Source Temporal Oral Pulse Rate 97 Respiratory Rate 16 Respiratory Effort Normal Non-Labored Respiratory Depth Normal Respiratory Pattern Normal Blood Pressure 108/84 H Blood Pressure Mean 92 Pulse Ox 100 Oxygen Delivery Method Room Air Room Air Positive well nourished General Appearance ED: NAD; Negative for pallor HEENT Reports moist mucous membranes normocephalic Eyes PERRL and EOMs intact bilaterally Neck no lymphadenopathy Resp normal respiratory effort Auscultation: Negative for rales, rhonchi or wheezes Cardio Rate: regular rate Rhythm: regular rhythm Extremity normal to inspection Neuro oriented x3 and CN's II-XII intact bilaterally Sensorium / Orientation: alert Motor Exam: strength 5/5 throughout Psych mental status grossly normal Mood & Affect: Negative for depressed or anxious Skin General Skin Exam: Negative for jaundice or pallor MDM MDM MDM Narrative Medical decision making narrative: Well-appearing 31-year-old female presenting with subjective fever. She states they checked her temperature at work and it was 100.6. She took no Tylenol or ibuprofen she does not have a fever here. She states she started having a cough, body aches, chills on . She states that a lot of people at work are testing positive for COVID. Patient does not have any chest pain or shortness of breath. Her lungs are clear to auscultation bilaterally. Heart regular rate and rhythm without murmur. She is 100% on room air with respirate of 16. She is in no acute distress. I did obtain a rapid COVID and rapid flu which were both negative. Patient counseled on findings. She is to alternate Tylenol and ibuprofen as needed for fevers, chills, body aches. She is to drink plenty of fluids. She states she does not want a work note because she feels well enough to work. Impression: 1. Viral syndrome Lab Data Attestation: I reviewed the patient's lab results. Discharge Plan Triage Chief Complaint: Cough ED Provider: Timoteo Greenwood Dx/Rx/DC Orders Instructions: ED Viral Syndrome (Adult) Prescriptions: No Action ondansetron 4 mg tablet,disintegrating 4 mg PO Q6H PRN (Reason: nausea and vomiting) Qty: 10 0RF hydrocodone-acetaminophen [hydrocodone-acetaminophen] 1 TABLET tablet 1 tab PO Q6H PRN PRN (Reason: Pain) 3 Days Qty: 10 0RF ondansetron 4 mg tablet,disintegrating 4 mg PO Q8H PRN (Reason: nausea and vomiting) Qty: 10 0RF Primary Care Provider: Alicia Glover NP Referrals: Alicia Glover NP, [facility] [Primary Care Provider] - Disposition Disposition: Home, Self Care
== END 2022-02-02 18:01 | disposition home or self-care (01) ==
PROVIDERS: Emergency Provider Student in an Organized Health Care Education/Training Program; PCP Nurse Practitioner Primary Care; Visit Provider Student in an Organized Health Care Education/Training Program
DX: B34.9 Viral infection, unspecified (principal); Z20.822 Contact with and (suspected) exposure to COVID-19; R50.9 Fever, unspecified; R05.9 Cough, unspecified; R06.02 Shortness of breath; M79.10 Myalgia, unspecified site
CPT/HCPCS: 87428; 99282

== ENCOUNTER 2022-02-06 00:53 | Emergency (ER) | payer BC, MEDICAID, SELFPAY ==
[2022-02-06 00:55] VITALS: BP 109/74; PULSE 74; RESP 16; TEMP 36.1; O2SAT 96; BMI 22.8
[2022-02-06 01:02] VITALS: BP 109/74; PULSE 71; RESP 16; TEMP 36.1; O2SAT 96
[2022-02-06 02:23] LABS: Color, Urine Yellow (Yellow); Glucose, Dipstick Normal (Normal); Ketone-Dipstick 50 mg/dl (Negative); Leukocyte Esterase-Dipstick Negative /ul (Negative); Mucous, Urine 0 SEEN /hpf (<or=2+); Nitrite-Dipstick Negative (Negative); Occult Blood-Urine 10 /ul (Negative); Protein-Dipstick 15 mg/dl (Negative); Specific Gravity, Urine 1.015 (1.002-1.030); Urine Bilirubin Dipstick Negative (Negative); Urine Clarity Clear (Clear); Urine Urobilinogen 1 mg/dl (Normal); White Blood Cells 0 SEEN /hpf (0-5)
[2022-02-06 02:26] VITALS: RESP 16
[2022-02-06 02:29] LABS: Bacteria 2+ /hpf (None Seen); Red Blood Cells-Urine 0-5 SEEN /hpf (0-5); Squamous Epithelial Cells - UA 0-5 SEEN /hpf (5-10)
[2022-02-06 02:35] LABS: Absolute Lymphocyte Count 1.61 X10^3/uL (0.83-4.51); Absolute Neutrophil Count 3.8 X10^3/uL (2.0-7.7); Basophil# 0.02 X10^3/uL; Basophil% 0.3 % (0-1); Eosinophil# 0.04 X10^3/uL; Eosinophils% 0.7 % (0-5); Hematocrit 39.7 % (37-47); Hemoglobin 13.7 g/dL (12.0-15.0); Lymphocyte # 1.61 X10^3/ul (0.83-4.51); Lymphocyte % 27.7 % (19-41); Mean Corp Hgb Conc 34.5 g/dL (32-36); Mean Corpuscular Hgb 31.1 pg (27.0-32.0); Mean Corpuscular Volume 90.2 fL (81-99); Mean Platelet Vol. 10.2 fl (6.2-12.0); Monocyte# 0.35 X10^3/uL; NRBC Flagged by Analyzer 0 % (0-5); Neutrophil # 3.77 X10^3/uL (2.7-7.7); Platelet Count 186 K/mm3 (150-450); RBC Distribution Width CV 11.5 % (11.6-14.6); RBC Distribution Width SD 37.9 fl (35.1-43.9); White Blood Count 5.8 K/mm3 (4.4-11.0)
[2022-02-06 02:36] LABS: Internal QC Validated? YES +Cl - CLEAR BKGD; Pregnancy, Urine Negative Negative
[2022-02-06 02:36] LABS: Amphetamine Urine VISTA NEGATIVE (<1000 ng/mL); Barbiturate Urine VISTA NEGATIVE (< 200 ng/mL); Benzodiazepine Urine VISTA NEGATIVE (< 200 ng/mL); Cocaine Urine VISTA NEGATIVE (< 300 ng/mL); Ecstacy Urine VISTA NEGATIVE (< 500 ng/mL); Methadone Urine VISTA NEGATIVE (< 300 ng/mL); PCP Urine VISTA NEGATIVE (< 25 ng/mL); THC Urine VISTA NEGATIVE (< 50 ng/mL); Vista UDS pH Range 6
[2022-02-06 02:49] LABS: Anion Gap 10 (5-15); BUN 11 mg/dL (7-18); BUN/Creat Ratio 16.3 RATIO (10-20); Calcium,Total 8.9 mg/dL (8.5-10.1); Chloride 103 mmol/L (98-107); Creatinine, Serum 0.67 mg/dL (0.55-1.02); EST Glomerular Filtration Rate 109 mL/min (>60); Est Glom Filt Rate - Afr Amer 132 mL/min (>60); Estimated Creatinine Clearance 123.85 ml/min; Glucose 85 mg/dL (74-106); Potassium 3.8 mmol/L (3.5-5.1); Sodium Level 140 mmol/L (136-145)
[2022-02-06 03:15] VITALS: RESP 18
[2022-02-06 03:36] LABS: Acetaminophen (Tylenol) Level < 2.0 ug/mL (10.0-30.0); Alcohol, Blood (Medical)-Serum < 3.0 mg/dL; Salicylate < 1.7 mg/dL (2.8-20.0)
[2022-02-06 04:13] VITALS: BP 108/60; PULSE 79; RESP 18
--- NOTE | 2022-02-06 04:39 | EX.ED.DYSGE1 ---
HPI History of Present Illness Chief Complaint: Mental Health Narrative Narrative: Patient is a 31-year-old female with past medical history of depression. She states that she was diagnosed with COVID about 5 days ago. She states since that time she has been having some congestion cough and fatigue. She states that this is worsened her depression. She states she is at thoughts of hurting herself and does admit to an intentional overdose about 2 years ago. Patient states that she has no plan at this time and denies taking any illicit substances. She feels like her depression is worsening and therefore she presents for evaluation [facility] Medical History Abnormal weight loss Anxiety Arthritis Chest pain Chronic neck and back pain Depression Fatigue Fever History of attempted suicide Limb weakness Mitral valve regurgitation Shoulder pain SOB (shortness of breath) Home Medications ondansetron 4 mg disintegrating tablet 4 mg PO Q6H PRN nausea and vomiting #10 tabs 10/23/21 [Rx Last Taken Unknown] Allergy/AdvReac Type Severity Reaction Status Date / Time cinnamon Allergy unknown Verified 02/06/22 01:05 horse dander Allergy Itching Verified 02/06/22 01:05 Family History Other Anemia Heart defect Heart enlarged Hypoglycemia Social History Smoking Status: Never smoker alcohol intake: never ROS ROS ED Constitutional Constitutional ED: Reports chills, fever(s) and subjective ENT ENT ED: Reports rhinorrhea and sore throat Cardiovascular Cardiovascular: Denies chest pain Respiratory/Chest Respiratory/Chest: Reports cough; Denies dyspnea Gastrointestinal Gastrointestinal: Denies abdominal pain, diarrhea, nausea or vomiting Genitourinary Genitourinary ED: Denies dysuria Musculoskeletal Musculoskeletal: Reports myalgias Integumentary Denies rash Neurologic Neurologic: Denies headache(s) Psychiatric Psychiatric: Reports depression; Denies suicidal ideation or suicidal thoughts Hematologic/Lymphatic Hematologic/Lymphatic: Denies easy bleeding or easy bruising EXAM Physical Exam Const Vital Signs: 02/06/22 00:55 02/06/22 01:02 02/06/22 02:26 Temperature 97.0 F L 97.0 F L Temperature Source Temporal Temporal Pulse Rate 74 71 Respiratory Rate 16 16 16 Blood Pressure 109/74 109/74 Blood Pressure Mean 85 85 Pulse Ox 96 96 Oxygen Delivery Method Room Air Room Air Room Air 02/06/22 03:15 02/06/22 04:13 Temperature Temperature Source Pulse Rate 79 Respiratory Rate 18 18 Blood Pressure 108/60 Blood Pressure Mean 76 Pulse Ox Oxygen Delivery Method Positive well nourished and well developed General Appearance ED: well developed HEENT Reports moist mucous membranes HEENT Narrative: There is cobblestoning the posterior pharynx consistent with sinus drainage but no airway edema or compromise Eyes PERRL and EOMs intact bilaterally Neck supple Neck Narrative: Positive anterior cervical lymphadenopathy noted Resp normal respiratory effort Resp Narrative: Breath sounds are slight diminished throughout with faint rhonchi in bilateral bases but no nasal flaring retractions tachypnea or accessory muscle use Cardio regular rate and regular rhythm GI normal to inspection, nondistended, normoactive bowel sounds, non-tender and non-distended Inspection: abdominal distention Auscultation: normoactive bowel sounds Palpation: soft Extremity normal to inspection Extremity Narrative: No asymmetric edema no pitting edema negative Homans' sign bilaterally Neuro oriented x3 and CN's II-XII intact bilaterally Sensorium / Orientation: alert Psych Psych Narrative: Patient has a flat affect with suicidal ideation without a plan Skin no rashes or lesions noted MDM MDM MDM Narrative Medical decision making narrative: Patient presented to the ER with stable vitals. She reported recent diagnosis of COVID and increased depression. She has moderate risk factors based on her previous intentional overdose 2 years ago. However at this time she has not taken any illicit substances and denies any plan. A basic work-up was obtained which showed a positive COVID test consistent with her history and physical exam but otherwise no acute findings. The patient was evaluated by crisis center. Crisis center reports they tried to place the patient 2 days ago when she was seen at an outside hospital but as she is COVID-positive no place will take her. Patient has remained COVID-positive and she still just has ideation without a plan or intent. Therefore crisis center and I do not believe it would benefit the patient to be kept in the ER until her COVID test is negative as this would cause more stress and anxiety. Therefore the patient will undergo a safety plan but will be discharged and can follow-up with crisis center on an outpatient basis Lab Data Attestation: I reviewed the patient's lab results. Labs: Laboratory Results - last 24 hr 02/06/22 02/06/22 02/06/22 02:10 02:18 02:18 WBC RBC Hgb Hct MCV MCH MCHC RDW Std Deviation RDW Coeff of Jonathan Plt Count MPV Immature Gran % (Auto) Neut % (Auto) Lymph % (Auto) [place] % (Auto) Eos % (Auto) Baso % (Auto) Absolute Neuts (auto) Absolute Lymphs (auto) Nucleated RBC % Sodium Potassium Chloride Carbon Dioxide Anion Gap BUN Creatinine Estim Creat Clear Calc Est GFR (MDRD) Af Amer Est GFR (MDRD) Non-Af BUN/Creatinine Ratio Glucose Calcium Urine Color Yellow Urine Clarity Clear Urine pH 6.0 Ur Specific [place] 1.015 Urine Protein 15 H Urine Glucose (UA) Normal Urine Ketones 50 H Urine Occult Blood 10 H Urine Nitrite Negative Urine Bilirubin Negative Urine Urobilinogen 1 H Ur Leukocyte Esterase Negative Urine RBC 0-5 SEEN Urine WBC 0 SEEN Ur Squamous Epith Cells 0-5 SEEN Urine Bacteria 2+ Urine Mucus 0 SEEN Urine Test Negative Salicylates Urine Opiates Screen NEGATIVE Urine Methadone Screen NEGATIVE Acetaminophen Ur Barbiturates Screen NEGATIVE Ur Phencyclidine Scrn NEGATIVE Ur Amphetamines Screen NEGATIVE MDMA (Ecstasy) Screen NEGATIVE U Benzodiazepines Scrn NEGATIVE Urine Cocaine Screen NEGATIVE U Cannabinoids Screen NEGATIVE Ur Drug Screen Comment Ethyl Alcohol 02/06/22 02/06/22 02/06/22 02:22 02:22 02:22 WBC 5.8 RBC 4.40 Hgb 13.7 Hct 39.7 MCV 90.2 MCH 31.1 MCHC 34.5 RDW Std Deviation 37.9 RDW Coeff of Jonathan 11.5 L Plt Count 186 MPV 10.2 Immature Gran % (Auto) 0.300 Neut % (Auto) 65.0 Lymph % (Auto) 27.7 [place] % (Auto) 6.0 Eos % (Auto) 0.7 Baso % (Auto) 0.3 Absolute Neuts (auto) 3.8 Absolute Lymphs (auto) 1.61 Nucleated RBC % 0 Sodium 140 Potassium 3.8 Chloride 103 Carbon Dioxide 27.0 Anion Gap 10 BUN 11 Creatinine 0.67 Estim Creat Clear Calc 123.85 Est GFR (MDRD) Af Amer 132 Est GFR (MDRD) Non-Af 109 BUN/Creatinine Ratio 16.3 Glucose 85 Calcium 8.9 Urine Color Urine Clarity Urine pH Ur Specific [place] Urine Protein Urine Glucose (UA) Urine Ketones Urine Occult Blood Urine Nitrite Urine Bilirubin Urine Urobilinogen Ur Leukocyte Esterase Urine RBC Urine WBC Ur Squamous Epith Cells Urine Bacteria Urine Mucus Urine Test Salicylates < 1.7 L Urine Opiates Screen Urine Methadone Screen Acetaminophen < 2.0 L Ur Barbiturates Screen Ur Phencyclidine Scrn Ur Amphetamines Screen MDMA (Ecstasy) Screen U Benzodiazepines Scrn Urine Cocaine Screen U Cannabinoids Screen Ur Drug Screen Comment Ethyl Alcohol < 3.0 Discharge Plan Triage Chief Complaint: Mental Health ED Provider: Jacoby Reyna Dx/Rx/DC Orders Clinical Impression: Depression, Suicidal ideation, COVID-19 Instructions: Coronavirus Disease 2019 (COVID-19): Caring for Yourself or Others, ED Depression Prescriptions: No Action ondansetron 4 mg tablet,disintegrating 4 mg PO Q6H PRN (Reason: nausea and vomiting) Qty: 10 0RF Primary Care Provider: Alicia Glover NP Referrals: Alicia Glover NP, [employer] [Primary Care Provider] - Disposition Disposition: Home, Self Care
[2022-02-06 04:58] VITALS: BP 108/60; PULSE 79; RESP 18
== END 2022-02-06 04:58 | disposition home or self-care (01) ==
PROVIDERS: Emergency Provider Emergency Medicine; PCP Nurse Practitioner Primary Care; Visit Provider Emergency Medicine
DX: F32.A Depression, unspecified (principal); R45.851 Suicidal ideations; U07.1 COVID-19; Z91.52 Personal history of nonsuicidal self-harm
CPT/HCPCS: 36415; 80048; 80307; 80329; 81001; 81025; 82077; 85025; 87811; 99282; G0480

== ENCOUNTER 2022-02-15 16:20 | Emergency (ER) | payer BC, MEDICAID, SELFPAY ==
[2022-02-15 16:22] VITALS: BP 104/58; PULSE 72; RESP 14; TEMP 36.8; O2SAT 96; BMI 21.1
--- NOTE | 2022-02-15 16:37 | EDS_ITS ---
HPI History of Present Illness Chief Complaint: Weakness Narrative Narrative: Patient presents with generalized weakness and lightheadedness. She had COVID about 10 days ago, she is improved from that standpoint but continues to have some diarrhea, today she felt lightheaded she felt more lightheaded than even in the past few days, she had a syncopal episode, she did not have any postictal symptoms afterwards she woke up and called the squad. She does not have a headache she does not think she hit her head, she has no neck pain she is denying any injuries. No chest pain or pleuritic component no lower extremity edema or calf pain. [facility] Medical History Abnormal weight loss Anxiety Arthritis Chest pain Chronic neck and back pain Depression Fatigue Fever History of attempted suicide Limb weakness Mitral valve regurgitation Shoulder pain SOB (shortness of breath) Home Medications NK 02/15/22 [History Last Taken Unknown] Allergy/AdvReac Type Severity Reaction Status Date / Time cinnamon Allergy unknown Verified 02/15/22 16:28 horse dander Allergy Itching Verified 02/15/22 16:28 Family History Other Anemia Heart defect Heart enlarged Hypoglycemia Social History Smoking Status: Never smoker alcohol intake: never ROS ROS ED ROS Narrative Past medical history: Reviewed, includes recent COVID-19, chronic fatigue, and history of chronic abdominal pain. Medications: Reviewed Social history: Noncontributory Review of systems: All systems negative except as indicated General: No fever, no chills, all that has subsided. She says she has generalized weakness for the past few weeks. Syncope as in HPI Eyes: No visual changes ENT: No upper airway congestion, normal voice Neck: No neck pain Cardiovascular: No chest pain, no palpitations. Respiratory: No shortness of breath or cough Gastrointestinal: She admits to current abdominal pain but it has not changed from normal. Genitourinary: No dysuria Musculoskeletal: Denies myalgias no difficulty with ambulation Skin: No rash Neurological: No memory loss, confusion or any focal weakness Psych: No recent behavioral changes Hematologic: No easy bleeding or easy bruising EXAM Physical Exam Narrative Exam Narrative: Physical exam General: Patient appears comfortable in the bed. She does not appear in any distress. Head: Normocephalic, Atraumatic Eyes: Conjunctiva not pale ENT: Slightly dry mucous membranes Neck: Supple, Nontender, No lymphadenopathy Cardiovascular: Regular rate, Regular rhythm Respiratory: No distress, CTA bilaterally Abdomen: Soft, mild left-sided abdominal tenderness without any guarding or rebound. Benign exam Back: Nontender, Normal Inspection. Negative for: CVA tenderness Extremities: Nontender, No edema Skin: Normal color, No rash Neurological: Alert, Normal Strength, Normal Sensation Psychological: Normal affect Const Vital Signs: 02/15/22 16:22 02/15/22 16:39 Temperature 98.3 F Temperature Source Oral Pulse Rate 72 Pulse Rate [Lying] 85 Pulse Rate [Sitting (for 1 minute prior to obtaining)] 103 H Pulse Rate [Standing (for 1 minute prior to obtaining)] 135 H Respiratory Rate 14 Blood Pressure 104/58 L Blood Pressure [Lying] 99/60 Blood Pressure [Sitting (for 1 minute prior to obtaining)] 103/70 Blood Pressure [Standing (for 1 minute prior to obtaining)] 102/77 Blood Pressure Mean 73 Blood Pressure Mean [Lying] 73 Blood Pressure Mean [Sitting (for 1 minute prior to obtaining)] 81 Blood Pressure Mean [Standing (for 1 minute prior to obtaining)] 85 Pulse Ox 96 Oxygen Delivery Method Room Air MDM MDM MDM Narrative Medical decision making narrative: Patient's work-up is unremarkable, she did have some dehydration and she was tachycardic however her heart rate is now 72, blood pressure is normal and she feels improved after IV fluids I believe she is stable for discharge. She agrees. Lab Data Labs: Laboratory Results - last 24 hr 02/15/22 02/15/22 16:42 16:42 WBC 6.6 RBC 4.59 Hgb 14.3 Hct 41.6 MCV 90.6 MCH 31.2 MCHC 34.4 RDW Std Deviation 37.6 RDW Coeff of Jonathan 11.4 L Plt Count 327 MPV 9.8 Immature Gran % (Auto) 0.200 Neut % (Auto) 70.6 H Lymph % (Auto) 20.8 [place] % (Auto) 6.8 Eos % (Auto) 1.1 Baso % (Auto) 0.5 Absolute Neuts (auto) 4.7 Absolute Lymphs (auto) 1.38 Nucleated RBC % 0 Sodium 141 Potassium 3.6 Chloride 104 Carbon Dioxide 26.0 Anion Gap 11 BUN 13 Creatinine 0.81 Estim Creat Clear Calc 101.32 Est GFR (MDRD) Af Amer 106 Est GFR (MDRD) Non-Af 87 BUN/Creatinine Ratio 16.0 Glucose 99 Calcium 9.0 Total Bilirubin 0.50 AST 12 L ALT 17 Alkaline Phosphatase 55 Total Protein 7.5 Albumin 3.8 Globulin 3.7 Albumin/Globulin Ratio 1.0 Discharge Plan Triage Chief Complaint: Weakness Other Complaint: Nausea/Vomiting/Diarrhea ED Provider: Eric Arredondo Dx/Rx/DC Orders Clinical Impression: Syncope, Acute dehydration Instructions: Causes of Syncope, Dehydration Prescriptions: No Action NK Primary Care Provider: Alicia Glover NP Referrals: Alicia Glover NP, [employer] [Primary Care Provider] - 2 Days Disposition Disposition: Home, Self Care
[2022-02-15 16:39] VITALS: BP 102/77; BP 103/70; BP 99/60; PULSE 103; PULSE 135; PULSE 85
[2022-02-15] MEDS: 0.9% Normal Saline 1,000 ML 1000 ML IV (16:45)
[2022-02-15 16:51] LABS: Absolute Lymphocyte Count 1.38 X10^3/uL (0.83-4.51); Absolute Neutrophil Count 4.7 X10^3/uL (2.0-7.7); Basophil# 0.03 X10^3/uL; Basophil% 0.5 % (0-1); Eosinophil# 0.07 X10^3/uL; Eosinophils% 1.1 % (0-5); Hematocrit 41.6 % (37-47); Hemoglobin 14.3 g/dL (12.0-15.0); Lymphocyte # 1.38 X10^3/ul (0.83-4.51); Lymphocyte % 20.8 % (19-41); Mean Corp Hgb Conc 34.4 g/dL (32-36); Mean Corpuscular Hgb 31.2 pg (27.0-32.0); Mean Corpuscular Volume 90.6 fL (81-99); Mean Platelet Vol. 9.8 fl (6.2-12.0); Monocyte# 0.45 X10^3/uL; Monocyte% 6.8 % (0-10); NRBC Flagged by Analyzer 0 % (0-5); Neutrophil # 4.69 X10^3/uL (2.7-7.7); Neutrophil % 70.6 % (47-70); Platelet Count 327 K/mm3 (150-450); RBC Distribution Width CV 11.4 % (11.6-14.6); RBC Distribution Width SD 37.6 fl (35.1-43.9); Red Blood Count 4.59 M/mm3 (4.2-5.4); White Blood Count 6.6 K/mm3 (4.4-11.0)
[2022-02-15 17:11] LABS: AST(SGOT) 12 U/L (15-37); Alanine Aminotransfer ALT/SGPT 17 U/L (13-56); Albumin, Serum 3.8 g/dL (3.2-5.0); Alkaline Phosphatase 55 U/L (45-117); Anion Gap 11 (5-15); BUN 13 mg/dL (7-18); Chloride 104 mmol/L (98-107); Creatinine, Serum 0.81 mg/dL (0.55-1.02); EST Glomerular Filtration Rate 87 mL/min (>60); Est Glom Filt Rate - Afr Amer 106 mL/min (>60); Estimated Creatinine Clearance 101.32 ml/min; Globulin 3.7 g/dL (2.2-4.2); Glucose 99 mg/dL (74-106); Potassium 3.6 mmol/L (3.5-5.1); Protein, Total 7.5 g/dL (6.4-8.2); Sodium Level 141 mmol/L (136-145)
[2022-02-15 18:27] VITALS: BP 96/60; PULSE 74; RESP 16; O2SAT 98
== END 2022-02-15 18:28 | disposition home or self-care (01) ==
PROVIDERS: Emergency Provider Emergency Medicine; PCP Nurse Practitioner Primary Care; Visit Provider Emergency Medicine
DX: E86.0 Dehydration (principal); R55 Syncope and collapse; Z86.16 Personal history of COVID-19
CPT/HCPCS: 80053; 85025; 96360; 96361; 99284; J7030; A4216

== ENCOUNTER 2022-06-08 18:59 | Emergency (ER) | payer BC, MEDICAID, SELFPAY ==
[2022-06-08 18:59] VITALS: BP 118/66; PULSE 94; RESP 17; TEMP 36.1; O2SAT 99; BMI 21.2
[2022-06-08 19:02] VITALS: BP 118/66; PULSE 94; RESP 18; TEMP 36; O2SAT 99
--- NOTE | 2022-06-08 19:22 | US_ITS ---
INDICATION: PAIN EXAMINATION: Ultrasound US Abdomen RUQ (limited) TECHNIQUE: Cowan scale and color doppler imaging was performed of the right upper quadrant. COMPARISON: 10/23/2021 CT FINDINGS: LIVER: There is mild increased echogenicity. No focal hepatic lesion. There is no free fluid. GALLBLADDER AND BILIARY TREE: No shadowing gallstone, pericholecystic fluid or gallbladder wall thickening is demonstrated. The proximal common bile duct measures 3.7 mm, which is within normal limits for the patient''s age. Sonographic Cantrell''s sign: Negative. PANCREAS: No focal abnormality is demonstrated in the pancreas. No pancreatic ductal dilatation. RIGHT KIDNEY: 11.3 x 4.7 x 3.3 cm. Normal appearance of the cortex. US/Gallbladder IMPRESSION: Hyperechoic liver compatible with hepatocellular disease such as steatosis. No other acute sonographic abnormality is demonstrated in the right upper quadrant. Electronically Signed: Eric Cruz MD at 20:25 EST ,
--- NOTE | 2022-06-08 19:23 | EDS_ITS ---
HPI HPI - GI History of Present Illness Chief Complaint: Abd Pain Detail of Chief Complaint: Right upper quadrant abdominal pain Informant: patient Abdominal Pain/Flank Pain Onset: Weeks Context: Sudden Onset Timing: Intermittent Quality: Aching, Cramping and - (Complains of intermittent heartburn.) Location: RUQ Current Severity: Mild Maximum Severity: Severe Worsened by: Food (Intolerance to greasy and fried foods. Family history cholelithiasis.) Relieved by: Nothing Nausea/Vomiting/Emesis GI Symptom: Positive for Nausea; Negative for Vomiting Diarrhea/Melena/Hematochezia GI Symptom: Negative for Diarrhea or Melena Associated Symptoms Associated Symptoms: Negative for Dysuria, Frequency, Hematuria or Urgency LMP: 1 week ago. Patient states she is not sexually active. Narrative Narrative: Patient is a 32-year-old female who presents with intermittent right upper quadrant pain. She admits to intolerance to greasy and fried foods. The family history cholelithiasis. Pain does radiate to her back. She describes as a crampy pain. She also had intermittent heartburn. She denies black or maroon- colored stool. She does have history of hemorrhoids and has had bright red blood intermittently for some time. She denies orthostatic symptoms. She denies bruising easily. She is not on anticoagulant or antiplatelet medicine. She denies fever, chills night sweats. She denies weight gain or weight loss. She denies ocular, visual auditory symptoms. She denies chest pain, dyspnea, [place] exertion, orthopnea or PND. She denies cough. Prior similar symptoms: Yes Recent Illness/Hospitalization: No PFSH PFSH Medical History Abnormal weight loss Anxiety Arthritis Chest pain Chronic neck and back pain Depression Fatigue Fever History of attempted suicide Limb weakness Mitral valve regurgitation Shoulder pain SOB (shortness of breath) Home Medications ondansetron 4 mg disintegrating tablet 4 mg PO Q8H PRN PRN Nausea #10 tabs 06/08/22 [Rx Last Taken Unknown] Allergy/AdvReac Type Severity Reaction Status Date / Time cinnamon Allergy unknown Verified 02/15/22 16:28 horse dander Allergy Itching Verified 02/15/22 16:28 Family History Other Anemia Heart defect Heart enlarged Hypoglycemia Social History (Updated 06/08/22 @ 19:[address] Jose Goetz MD) household members: none Smoking Status: Never smoker alcohol intake: never ROS ROS ED Constitutional Constitutional ED: Denies chills, fever(s), subjective, sweats or weight loss ENT ENT ED: Denies ear pain, rhinorrhea or sore throat Cardiovascular Cardiovascular: Denies chest pain, orthopnea, palpitations, paroxysmal nocturnal dyspnea or racing heartbeat Respiratory/Chest Respiratory/Chest: Denies cough, dyspnea, dyspnea on exertion, orthopnea or paroxysmal nocturnal dyspnea Gastrointestinal Gastrointestinal: Reports abdominal pain, nausea and other Details: Also reports heartburn. ; Denies constipation, diarrhea, melena or vomiting Genitourinary Genitourinary ED: Reports LMP (females 10-50) Details: Comment: (1 week ago); Denies dysuria, hematuria or urinary frequency Musculoskeletal Musculoskeletal: Reports back pain; Denies arthralgias, myalgias or neck pain Integumentary Denies rash Neurologic Neurologic: Denies headache(s), paresthesias or weakness Hematologic/Lymphatic Hematologic/Lymphatic: Denies easy bleeding or easy bruising EXAM Physical Exam Const Vital Signs: 06/08/22 18:59 06/08/22 19:02 Temperature 96.9 F L 96.8 F L Temperature Source Temporal Temporal Pulse Rate 94 94 Respiratory Rate 17 18 Blood Pressure 118/66 118/66 Blood Pressure Mean 83 83 Pulse Ox 99 99 Oxygen Delivery Method Room Air Room Air Positive well nourished and well developed Constitutional Narrative: Patient does appear pale. However, her conjunctive is pink. General Appearance ED: well developed, NAD and pallor HEENT Reports TM's clear and moist mucous membranes HEENT Narrative: Nares patent. normocephalic and atraumatic Tympanic Membrane ED: Yes TM's clear Eyes PERRL and EOMs intact bilaterally General Eye ED: Negative for pale conjunctiva or scleral icterus Neck no lymphadenopathy, supple and no JVD Resp normal respiratory effort and clear to auscultation bilaterally Cardio regular rate, regular rhythm, S1 normal heart sound, S2 normal heart sound and no murmurs GI non-distended and no masses; Negative for non-tender Auscultation: hypoactive bowel sounds Palpation: soft, tender RUQ and Cantrell's sign and guarding RUQ; Negative for rigid, hepatomegaly, splenomegaly, hernia, mass, pulsatile mass or rebound tenderness present Back/Spine no CVA tenderness Extremity full ROM General Extremety ED: Negative for edema or tenderness General Extremity: Negative for edema Neuro No CN's II-XII intact bilaterally, moves all extremities and no sensory deficits noted Sensorium / Orientation: alert Motor Exam: strength 5/5 throughout Psych Mood & Affect: depressed Skin no wounds General Skin Exam: pallor; Negative for jaundice Lesions: no lesions Rashes: no rashes MDM MDM MDM Narrative Medical decision making narrative: Work-upHistory of right upper quadrant pain and intolerance to greasy and fried foods and history of cholelithiasis in the family concern patient has cholelithiasis with colic versus cholecystitis. Will obtain CBC just white count differential, liver panel to assess transaminases, bilirubin and alkaline phosphatase. Lipase to evaluate for pancreatic inflammation. Patient was medicated with IV Toradol, morphine and Zofran for her pain and nausea respectively. Ultrasound was obtained. Suspect heartburn is due to reflux/esophagitis. Prior ER records were reviewed. She has never presented for abdominal pain or intolerance to greasy fried foods. There are no outside records for review. Is negative. Ultrasound revealed a normal gallbladder with no evidence of ch olelithiasis. There is evidence of hepatocellular disease,steatosis. If patient continues to have intolerance to greasy foods will need an outpatient HIDA scan performed. This could be performed by her primary care physician. Lab Data Attestation: I reviewed the patient's lab results. Lab results narrative: CBC, liver panel and lipase are all normal. Labs: Laboratory Results - last 24 hr 06/08/22 06/08/22 19:23 19:23 WBC 5.3 RBC 4.72 Hgb 14.7 Hct 43.9 MCV 93.0 MCH 31.1 MCHC 33.5 RDW Std Deviation 39.9 RDW Coeff of Jonathan 11.6 Plt Count 301 MPV 10.6 Immature Gran % (Auto) 0.200 Neut % (Auto) 64.8 Lymph % (Auto) 26.9 [place] % (Auto) 5.5 Eos % (Auto) 1.7 Baso % (Auto) 0.9 Absolute Neuts (auto) 3.4 Absolute Lymphs (auto) 1.42 Nucleated RBC % 0 Total Bilirubin 0.30 Direct Bilirubin < 0.05 AST 31 ALT 32 Alkaline Phosphatase 55 Total Protein 7.8 Albumin 3.9 Globulin 3.9 Lipase 122 Radiography Diagnostic Testing: Clinical Impression(s) from Imaging Studies Gallbladder Ultrasound 06/08/22 19:22 IMPRESSION: Hyperechoic liver compatible with hepatocellular disease such as steatosis. No other acute sonographic abnormality is demonstrated in the right upper quadrant. Electronically Signed: Eric Cruz MD at 20:25 EST , Discharge Plan Triage Chief Complaint: Abd Pain ED Provider: Jsoe Goetz Dx/Rx/DC Orders Clinical Impression: Colicky right upper quadrant pain, Hepatic steatosis, Nausea Instructions: Nonalcoholic Fatty Liver ..., ED Abdominal Pain Unkn Cause Fem Prescriptions: New ondansetron [ondansetron] 4 mg tablet,disintegrating 4 mg PO Q8H PRN PRN (Reason: Nausea) Qty: 10 0RF Primary Care Provider: Alicia Glover NP Referrals: Alicia Glover NP, [employer] [Primary Care Provider] - 5-7 Days Activity Restrictions/Additional Instructions: If you continue to have intolerance to greasy and fried foods you will need an outpatient HIDA scan. Disposition Disposition: Home, Self Care
[2022-06-08] MEDS: Ondansetron 4 MG/2 ML Vial IV (19:32)
[2022-06-08] MEDS: Ketorolac 15 MG/ML Vial IV (19:32)
[2022-06-08 19:33] LABS: Absolute Lymphocyte Count 1.42 X10^3/uL (0.83-4.51); Absolute Neutrophil Count 3.4 X10^3/uL (2.0-7.7); Basophil# 0.05 X10^3/uL; Basophil% 0.9 % (0-1); Eosinophil# 0.09 X10^3/uL; Eosinophils% 1.7 % (0-5); Hematocrit 43.9 % (37-47); Hemoglobin 14.7 g/dL (12.0-15.0); Lymphocyte # 1.42 X10^3/ul (0.83-4.51); Lymphocyte % 26.9 % (19-41); Mean Corp Hgb Conc 33.5 g/dL (32-36); Mean Corpuscular Hgb 31.1 pg (27.0-32.0); Mean Platelet Vol. 10.6 fl (6.2-12.0); Monocyte# 0.29 X10^3/uL; Monocyte% 5.5 % (0-10); NRBC Flagged by Analyzer 0 % (0-5); Neutrophil # 3.42 X10^3/uL (2.7-7.7); Neutrophil % 64.8 % (47-70); Platelet Count 301 K/mm3 (150-450); RBC Distribution Width CV 11.6 % (11.6-14.6); RBC Distribution Width SD 39.9 fl (35.1-43.9); Red Blood Count 4.72 M/mm3 (4.2-5.4); White Blood Count 5.3 K/mm3 (4.4-11.0)
[2022-06-08] MEDS: Morphine 4 MG/ML Syringe IV (19:35)
[2022-06-08 19:58] LABS: AST(SGOT) 31 U/L (15-37); Alanine Aminotransfer ALT/SGPT 32 U/L (13-56); Albumin, Serum 3.9 g/dL (3.2-5.0); Alkaline Phosphatase 55 U/L (45-117); Bilirubin, Direct < 0.05 mg/dL (0.00-0.30); Globulin 3.9 g/dL (2.2-4.2); Lipase 122 U/L (73-393); Protein, Total 7.8 g/dL (6.4-8.2)
[2022-06-08 21:39] VITALS: BP 124/78; PULSE 70; RESP 15; O2SAT 99
== END 2022-06-08 21:39 | disposition home or self-care (01) ==
PROVIDERS: Emergency Provider Emergency Medicine; PCP Nurse Practitioner Primary Care; Visit Provider Emergency Medicine
DX: R10.11 Right upper quadrant pain (principal); K76.0 Fatty (change of) liver, not elsewhere classified; R11.0 Nausea
CPT/HCPCS: 76705; 80076; 83690; 85025; 96374; 96375; 99282; J2405

== ENCOUNTER 2022-07-25 10:24 | Emergency (ER) | payer BC, MEDICAID, SELFPAY ==
[2022-07-25 10:24] VITALS: BP 87/57; PULSE 79; RESP 16; TEMP 36.3; O2SAT 98; BMI 21.7
--- NOTE | 2022-07-25 10:51 | RAD_ITS ---
STUDY: X-RAY - LEFT KNEE REASON FOR EXAM: Female, 32 years old. pain TECHNIQUE: 4 view(s) of the knee. COMPARISON: None. FINDINGS: Normal visualized distal femur. Normal visualized proximal tibia and fibula. Normal proximal tibiofibular articulation. There is no demonstrated fracture. Normal medial femorotibial compartment. Normal lateral femorotibial compartment. Normal patellofemoral articulation. There is no demonstrated joint effusion. The soft tissue structures are unremarkable. RAD/Knee 4 or More Views IMPRESSION: Normal x-ray examination of the knee. Electronically Signed: Masoud Samuels MD at 11:50 EST ,
--- NOTE | 2022-07-25 10:57 | EX.ED.DYSGE1 ---
HPI History of Present Illness Chief Complaint: Lower Extremity Injury Detail of Chief Complaint: Left knee pain Informant: patient Onset/Context/Timing Onset: Weeks Context: Gradual Onset Timing: Waxes and wanes Current Severity: Mild Maximum Severity: Moderate Narrative Narrative: Patient present secondary to ongoing left knee pain. She states she has had left knee pain for couple weeks. She was seen at an outside facility and diagnosed with something similar to a sprain. She had this confirmed by her primary care doctor. She did do a short course of physical therapy but states she has not had improvement. She is taking Tylenol and ibuprofen regularly. She has not other specific injury, however states that she did sprain her right ankle shortly prior to the onset of her left knee pain. She believes her gait was altered because of that injury and may have triggered her left knee pain. [facility] Medical History Abnormal weight loss Anxiety Arthritis Chest pain Chronic neck and back pain Depression Fatigue Fever History of attempted suicide Limb weakness Mitral valve regurgitation Shoulder pain SOB (shortness of breath) Home Medications ondansetron 4 mg disintegrating tablet 4 mg PO Q8H PRN PRN Nausea #10 tabs 06/08/22 [Rx Last Taken Unknown] naproxen 500 mg tablet (Naprosyn) 500 mg PO BID PRN pain #20 tabs 07/25/22 [Rx Last Taken Unknown] Allergy/AdvReac Type Severity Reaction Status Date / Time cinnamon Allergy unknown Verified 07/25/22 10:28 horse dander Allergy Itching Verified 07/25/22 10:28 Family History Other Anemia Heart defect Heart enlarged Hypoglycemia Social History household members: none Smoking Status: Never smoker alcohol intake: never ROS ROS ED Constitutional Constitutional ED: Denies chills or fever(s) Eyes Eyes: Denies change in vision or discharge from eye(s) ENT ENT ED: Denies discharge from eye(s), rhinorrhea or sore throat Cardiovascular Cardiovascular: Denies chest pain or palpitations Respiratory/Chest Respiratory/Chest: Denies cough or dyspnea Gastrointestinal Gastrointestinal: Denies abdominal pain, diarrhea, nausea or vomiting Genitourinary Genitourinary ED: Denies difficulty urinating or dysuria Musculoskeletal Musculoskeletal: Reports extremity pain; Denies back pain Integumentary Denies Abrasions or rash Neurologic Neurologic: Denies headache(s) or weakness Psychiatric Psychiatric: Denies anxiety or depression Allergic/Immunologic Allergic/Immunologic ED: Denies lip swelling or urticaria EXAM Physical Exam Const Vital Signs: 07/25/22 10:24 Temperature 97.3 F L Temperature Source Temporal Pulse Rate 79 Respiratory Rate 16 Blood Pressure 87/57 L Blood Pressure Mean 67 Pulse Ox 98 Oxygen Delivery Method Room Air Positive well nourished and well developed General Appearance ED: well developed HEENT Reports normocephalic and head/scalp atraumatic Eyes PERRL and EOMs intact bilaterally Neck supple Chest Wall inspection of chest normal and palpation of chest normal Resp normal respiratory effort and clear to auscultation bilaterally Cardio regular rate and regular rhythm GI normal to inspection, nondistended, normoactive bowel sounds Palpation: soft Extremity normal to inspection Extremity Narrative: Mild diffuse tenderness to the left knee. No erythema or edema. Good range of motion. Ligaments tight on testing. Neuro oriented x3 and no sensory deficits noted Sensorium / Orientation: alert Motor Exam: strength 5/5 throughout Psych mental status grossly normal Skin no rashes or lesions noted MDM MDM MDM Narrative Medical decision making narrative: Urine obtained as the patient is unsure if she may be . Left knee x-rays ordered. History & Record Review Additional record(s) reviewed:: Prior outpatient record Lab Data Attestation: I reviewed the patient's lab results. Labs: Laboratory Results - last 24 hr 07/25/22 11:00 Urine Test Negative Radiography Diagnostic Testing: Clinical Impression(s) from Imaging Studies Knee X-Ray 07/25/22 10:51 IMPRESSION: Normal x-ray examination of the knee. Electronically Signed: Masoud Samuels MD at 11:50 EST Reading Location ID and State: [facility] / [place] , Service support , Treatment and Re-Evaluation :: Urine test is negative. Left knee x-rays per my interpretation reveal no obvious abnormalities. Radiology interpretation is reviewed and agrees. Patient will be written for naproxen which she can take twice a day. She will not take [id number] ibuprofen in addition to this. Given her ongoing symptoms I will refer her to orthopedics for further work-up and evaluation. Discharge Plan Triage Chief Complaint: Lower Extremity Injury ED Provider: Lucia Maldonado Dx/Rx/DC Orders Clinical Impression: Left knee sprain Instructions: ED Knee Sprain Prescriptions: New naproxen [Naprosyn] 500 mg tablet 500 mg PO BID PRN (Reason: pain) Qty: 20 0RF No Action ondansetron [ondansetron] 4 mg tablet,disintegrating 4 mg PO Q8H PRN PRN (Reason: Nausea) Qty: 10 0RF Primary Care Provider: Alicia Glover NP Referrals: Jim Skinner DO [Med Staff - Active Staff] - As Needed Alicia Glover NP, [employer] [Primary Care Provider] - Disposition Disposition: Home, Self Care
[2022-07-25 11:19] LABS: Internal QC Validated? YES +Cl - CLEAR BKGD; Pregnancy, Urine Negative Negative
[2022-07-25 11:58] VITALS: BP 105/62
[2022-07-25 12:12] VITALS: O2SAT 100
[2022-07-25] MEDS: Naproxen 500 MG Tablet PO (12:13)
== END 2022-07-25 12:14 | disposition home or self-care (01) ==
PROVIDERS: Emergency Provider Emergency Medicine; PCP Nurse Practitioner Primary Care; Visit Provider Emergency Medicine
DX: S83.92XA Sprain of unspecified site of left knee, initial encounter (principal); X58.XXXA Exposure to other specified factors, initial encounter
CPT/HCPCS: 73564; 81025; 99283

== ENCOUNTER 2022-07-29 03:41 | Emergency (ER) | payer BC, MEDICAID, SELFPAY ==
[2022-07-29 03:42] VITALS: BP 105/80; PULSE 88; RESP 15; TEMP 36.6; O2SAT 99; BMI 22.5
--- NOTE | 2022-07-29 04:49 | CT_ITS ---
EXAM: CT ABDOMEN AND PELVIS WITH INTRAVENOUS CONTRAST CLINICAL INDICATION: RLQ pain TECHNIQUE: Helically acquired images were obtained of the abdomen and pelvis with intravenous contrast. This CT exam was performed using one or more of the following dose reduction techniques: automated exposure control, adjustment of the mA and/or kV according to patient size, and/or use of iterative reconstruction technique. This report was created using [employer] report generation technology. CONTRAST: IV 100mL Isovue-300 COMPARISON: 10/23/2021 FINDINGS: LOWER THORAX: Unremarkable. Lung bases are clear. No cardiomegaly. No significant pericardial effusion. ABDOMEN: LIVER: Unremarkable. Homogeneous. No focal mass. GALLBLADDER AND BILE DUCTS: Unremarkable. No calcified gallstones. No gallbladder distention or wall edema. No intra- or extrahepatic biliary ductal dilation. PANCREAS: Unremarkable. No focal cystic or solid mass. SPLEEN: Unremarkable. Normal size without focal cystic or solid mass. ADRENALS: Unremarkable. No nodules. KIDNEYS AND URETERS: Unremarkable. Normal renal size and position. No hydronephrosis. Normal enhancement of the renal parenchyma bilaterally. STOMACH AND BOWEL: Unremarkable. No stomach or bowel distention. No focal inflammatory change. PELVIS: APPENDIX: The appendix is normal. BLADDER: Unremarkable. REPRODUCTIVE: Unremarkable as visualized. No mass. ABDOMEN and PELVIS: INTRAPERITONEAL SPACE: Unremarkable. No ascites or other fluid collection. No free air. BONES/JOINTS: Unremarkable. No suspicious lytic or blastic abnormality. SOFT TISSUES: Unremarkable. No discrete abdominal or pelvic wall hernia. VASCULATURE: Unremarkable. Abdominal aorta is non-dilated. LYMPH NODES: Unremarkable. No enlarged lymph nodes. CT/Abdomen/Pelvis W IV Cont ONLY IMPRESSION: No acute findings in the abdomen or pelvis. Electronically Signed: Alon Ramos MD at 6:37 EST ,
[2022-07-29] MEDS: Ondansetron 4 MG/2 ML Vial IV (05:12)
[2022-07-29] MEDS: 0.9% Normal Saline 1,000 ML 999 ML IV (05:14)
[2022-07-29] MEDS: Morphine 4 MG/ML Syringe IV (05:14)
[2022-07-29 05:18] LABS: Absolute Lymphocyte Count 1.71 X10^3/uL (0.83-4.51); Absolute Neutrophil Count 5.5 X10^3/uL (2.0-7.7); Basophil# 0.05 X10^3/uL; Basophil% 0.6 % (0-1); Eosinophil# 0.13 X10^3/uL; Eosinophils% 1.6 % (0-5); Hemoglobin 12.5 g/dL (12.0-15.0); Lymphocyte # 1.71 X10^3/ul (0.83-4.51); Lymphocyte % 21.5 % (19-41); Mean Corp Hgb Conc 32.9 g/dL (32-36); Mean Corpuscular Hgb 31.1 pg (27.0-32.0); Mean Corpuscular Volume 94.5 fL (81-99); Monocyte% 7.5 % (0-10); NRBC Flagged by Analyzer 0 % (0-5); Neutrophil # 5.46 X10^3/uL (2.7-7.7); Neutrophil % 68.5 % (47-70); Platelet Count 227 K/mm3 (150-450); RBC Distribution Width CV 12.6 % (11.6-14.6); RBC Distribution Width SD 43.9 fl (35.1-43.9); Red Blood Count 4.02 M/mm3 (4.2-5.4)
[2022-07-29 05:35] LABS: AST(SGOT) 15 U/L (15-37); Alanine Aminotransfer ALT/SGPT 21 U/L (13-56); Albumin, Serum 3.5 g/dL (3.2-5.0); Alkaline Phosphatase 44 U/L (45-117); BUN 8 mg/dL (7-18); BUN/Creat Ratio 13.6 RATIO (10-20); Bilirubin, Direct 0.11 mg/dL (0.00-0.30); Calcium,Total 8.8 mg/dL (8.5-10.1); Chloride 107 mmol/L (98-107); Creatinine, Serum 0.59 mg/dL (0.55-1.02); EST Glomerular Filtration Rate 126 mL/min (>60); Est Glom Filt Rate - Afr Amer 153 mL/min (>60); Estimated Creatinine Clearance 139.37 ml/min; Globulin 3.5 g/dL (2.2-4.2); Glucose 93 mg/dL (74-106); Internal QC Validated? YES +Cl - CLEAR BKGD; Lipase 171 U/L (73-393); Potassium 3.5 mmol/L (3.5-5.1); Pregnancy, Serum, hCG Quali. NEGATIVE Negative; Sodium Level 140 mmol/L (136-145)
[2022-07-29 05:36] LABS: Anion Gap 6 (5-15)
[2022-07-29 05:42] LABS: Lactic Acid 0.9 mmol/L (0.4-1.9)
[2022-07-29 06:38] VITALS: BP 99/59; PULSE 76; RESP 15; O2SAT 100
[2022-07-29 06:42] LABS: Mucous, Urine 0 SEEN /hpf (<or=2+); Squamous Epithelial Cells - UA 0 SEEN /hpf (5-10); White Blood Cells 0 SEEN /hpf (0-5)
[2022-07-29 06:48] LABS: Color, Urine Yellow (Yellow); Glucose, Dipstick Normal (Normal); Ketone-Dipstick Negative (Negative); Leukocyte Esterase-Dipstick Negative /ul (Negative); Nitrite-Dipstick Negative (Negative); Occult Blood-Urine 10 /ul (Negative); Protein-Dipstick 15 mg/dl (Negative); Urine Bilirubin Dipstick Negative (Negative); Urine Clarity Clear (Clear); Urine Urobilinogen Normal (Normal); Urine pH 6.5 (5.0 - 8.0)
[2022-07-29 06:57] LABS: Bacteria 1+ /hpf (None Seen); Red Blood Cells-Urine 0-5 SEEN /hpf (0-5)
--- NOTE | 2022-07-29 07:20 | EX.ED.DYSGE1 ---
HPI History of Present Illness Chief Complaint: Abd Pain Narrative Narrative: Patient is a 32-year-old female with past medical history of endometriosis. She states that over the past 2 days she has had generalized lower abdominal pain with bouts of nausea and vomiting. She denies any loose stool/diarrhea and she denies any dysuria or hematuria. She states that she is approximately 1 week out from her menstrual cycle. She denies any known sick contacts. She states has been trying [id number] medications with no symptom improvement and secondary to this comes in for evaluation. [facility] Medical History Abnormal weight loss Anxiety Arthritis Chest pain Chronic neck and back pain Depression Fatigue Fever History of attempted suicide Limb weakness Mitral valve regurgitation Shoulder pain SOB (shortness of breath) Home Medications ondansetron 4 mg disintegrating tablet 4 mg PO Q8H PRN PRN Nausea #10 tabs 06/08/22 [Rx Last Taken Unknown] naproxen 500 mg tablet (Naprosyn) 500 mg PO BID PRN pain #20 tabs 07/25/22 [Rx Last Taken Unknown] ondansetron 4 mg disintegrating tablet 4 mg PO TID PRN nausea and vomiting #21 tabs 07/29/22 [Rx Last Taken Unknown] oxycodone-acetaminophen 5 mg-325 mg tablet (Percocet) 1 tab PO Q6H PRN pain 3 days #12 tabs 07/29/22 [Rx Last Taken Unknown] Allergy/AdvReac Type Severity Reaction Status Date / Time cinnamon Allergy unknown Verified 07/29/22 03:48 horse dander Allergy Itching Verified 07/29/22 03:48 Family History Other Anemia Heart defect Heart enlarged Hypoglycemia Social History household members: none Smoking Status: Never smoker alcohol intake: never ROS ROS ED Constitutional Constitutional ED: Denies chills or fever(s) ENT ENT ED: Denies sore throat Cardiovascular Cardiovascular: Denies chest pain Respiratory/Chest Respiratory/Chest: Denies cough or dyspnea Gastrointestinal Gastrointestinal: Reports abdominal pain, nausea and vomiting; Denies diarrhea Genitourinary Genitourinary ED: Denies dysuria or hematuria Musculoskeletal Musculoskeletal: Reports myalgias; Denies back pain Integumentary Denies rash Neurologic Neurologic: Denies headache(s) Hematologic/Lymphatic Hematologic/Lymphatic: Denies easy bleeding or easy bruising EXAM Physical Exam Const Vital Signs: 07/29/22 03:42 07/29/22 03:42 07/29/22 06:38 Temperature 97.8 F Temperature Source Temporal Pulse Rate 88 76 Respiratory Rate 15 15 Blood Pressure 105/80 99/59 L Blood Pressure Mean 88 72 Pulse Ox 99 99 100 Oxygen Delivery Method Room Air Room Air Room Air Positive well nourished and well developed General Appearance ED: well developed HEENT Reports moist mucous membranes HEENT Narrative: No signs of infection in the posterior pharynx Eyes PERRL and EOMs intact bilaterally General Eye ED: Negative for scleral icterus Neck supple Neck Narrative: No nuchal rigidity or meningeal signs present Resp normal respiratory effort and clear to auscultation bilaterally Cardio regular rate and regular rhythm Rate: other Other Details: Radial pulses are plus 2 out of 4 bilaterally are equal and symmetric GI non-distended GI Narrative: Abdomen is soft and nondistended with normal active bowel sounds. There is mild diffuse pain on palpation but greatest in the lower right sided abdomen. Negative heel strike psoas and obturator signs. no voluntary guarding or rigidity. No pulsatile mass or fluid wave Auscultation: normoactive bowel sounds Palpation: soft Back/Spine no CVA tenderness Extremity normal to inspection Neuro oriented x3 and CN's II-XII intact bilaterally Sensorium / Orientation: alert Psych Psych Narrative: Patient has a flat affect Skin no rashes or lesions noted General Skin Exam: Negative for jaundice MDM MDM MDM Narrative Medical decision making narrative: Patient presented to the ER with stable vitals. Her abdomen is soft and nonsurgical but with the diffuse tenderness to palpation that is localized more along the right side there is concern that patient could be developing an acute appendicitis have an ovarian cyst or developed a kidney stone or possible pyelonephritis so basic work-up with CT scan was obtained. Labs revealed no clinically significant findings. CT scan also revealed no acute pathology. On reevaluation she is resting comfortably vitals remained stable and abdomen remains soft and nonsurgical. As the CAT scan did not scrap picker any type of ovarian cyst or uterine pathology do not feel there is a need for emergent ultrasound especially as patient states she has had symptoms similar to this in the past with negative work-up. She does have a history of endometriosis and is roughly 1 week from her menstrual cycle beginning and therefore there is a possibility that this pain is simply related to the endometriosis. However at this time as vitals are stable and work-up is negative there is no need for admission or further work-up in the ER and he is otherwise safe for discharge with symptomatic care. History & Record Review Discussion w/independent historian: Patient Lab Data Attestation: I reviewed the patient's lab results. Labs: Laboratory Results - last 24 hr 07/29/22 07/29/22 07/29/22 05:05 05:05 05:05 WBC 8.0 RBC 4.02 L Hgb 12.5 Hct 38.0 MCV 94.5 MCH 31.1 MCHC 32.9 RDW Std Deviation 43.9 RDW Coeff of Jonathan 12.6 Plt Count 227 MPV 10.0 Immature Gran % (Auto) 0.300 Neut % (Auto) 68.5 Lymph % (Auto) 21.5 [place] % (Auto) 7.5 Eos % (Auto) 1.6 Baso % (Auto) 0.6 Absolute Neuts (auto) 5.5 Absolute Lymphs (auto) 1.71 Nucleated RBC % 0 Sodium 140 Potassium 3.5 Chloride 107 Carbon Dioxide 27.0 Anion Gap 6 BUN 8 Creatinine 0.59 Estim Creat Clear Calc 139.37 Est GFR (MDRD) Af Amer 153 Est GFR (MDRD) Non-Af 126 BUN/Creatinine Ratio 13.6 Glucose 93 Lactic Acid 0.9 Calcium 8.8 Total Bilirubin 0.30 Direct Bilirubin 0.11 AST 15 ALT 21 Alkaline Phosphatase 44 L Total Protein 7.0 Albumin 3.5 Globulin 3.5 Lipase 171 Serum , Qual Urine Color Urine Clarity Urine pH Ur Specific [place] Urine Protein Urine Glucose (UA) Urine Ketones Urine Occult Blood Urine Nitrite Urine Bilirubin Urine Urobilinogen Ur Leukocyte Esterase Urine RBC Urine WBC Ur Squamous Epith Cells Urine Bacteria Urine Mucus 07/29/22 07/29/22 05:05 06:35 WBC RBC Hgb Hct MCV MCH MCHC RDW Std Deviation RDW Coeff of Jonathan Plt Count MPV Immature Gran % (Auto) Neut % (Auto) Lymph % (Auto) [place] % (Auto) Eos % (Auto) Baso % (Auto) Absolute Neuts (auto) Absolute Lymphs (auto) Nucleated RBC % Sodium Potassium Chloride Carbon Dioxide Anion Gap BUN Creatinine Estim Creat Clear Calc Est GFR (MDRD) Af Amer Est GFR (MDRD) Non-Af BUN/Creatinine Ratio Glucose Lactic Acid Calcium Total Bilirubin Direct Bilirubin AST ALT Alkaline Phosphatase Total Protein Albumin Globulin Lipase Serum , Qual NEGATIVE Urine Color Yellow Urine Clarity Clear Urine pH 6.5 Ur Specific [place] 1.010 Urine Protein 15 H Urine Glucose (UA) Normal Urine Ketones Negative Urine Occult Blood 10 H Urine Nitrite Negative Urine Bilirubin Negative Urine Urobilinogen Normal Ur Leukocyte Esterase Negative Urine RBC 0-5 SEEN Urine WBC 0 SEEN Ur Squamous Epith Cells 0 SEEN Urine Bacteria 1+ Urine Mucus 0 SEEN Radiography Diagnostic Testing: Clinical Impression(s) from Imaging Studies Abdomen/Pelvis CT 07/29/22 04:49 IMPRESSION: No acute findings in the abdomen or pelvis. Electronically Signed: Alon Ramos MD at 6:37 EST Reading Location ID and State: [facility] / [place] Tel , Service support , Discharge Plan Triage Chief Complaint: Abd Pain ED Provider: Jacoby Reyna Dx/Rx/DC Orders Clinical Impression: Nonspecific abdominal pain, Endometriosis Instructions: Abdominal Pain, ED Endometriosis Prescriptions: New ondansetron 4 mg tablet,disintegrating 4 mg PO TID PRN (Reason: nausea and vomiting) Qty: 21 0RF oxycodone-acetaminophen [Percocet] 5-325 mg tablet 1 tab PO Q6H PRN (Reason: pain) 3 Days Qty: 12 0RF No Action ondansetron [ondansetron] 4 mg tablet,disintegrating 4 mg PO Q8H PRN PRN (Reason: Nausea) Qty: 10 0RF naproxen [Naprosyn] 500 mg tablet 500 mg PO BID PRN (Reason: pain) Qty: 20 0RF Stand Alone Forms: ED Work / School Excuse Primary Care Provider: Alicia Glover NP Referrals: Alicia Glover NP, [employer] [Primary Care Provider] - Activity Restrictions/Additional Instructions: Your work-up today did not show any signs of infection as a cause your pain such as UTI appendicitis or kidney infection. I do feel this is most likely related to your history of endometriosis. Please take the prescribed medication as directed to control pain and return to the ER should you have any further concerns. Disposition Disposition: Home, Self Care Discharge Date/Time: 07/29/22 07:29
== END 2022-07-29 07:29 | disposition home or self-care (01) ==
PROVIDERS: Emergency Provider Emergency Medicine; PCP Nurse Practitioner Primary Care; Visit Provider Emergency Medicine
DX: R10.9 Unspecified abdominal pain (principal); N80.9 Endometriosis, unspecified
CPT/HCPCS: 74177; 80048; 80076; 81001; 83605; 83690; 84703; 85025; 96361; 96374; 96375; 99285; J7030; Q9967; A4216; J2405

== ENCOUNTER 2022-09-05 09:31 | Emergency (ER) | payer BC, MEDICAID, SELFPAY ==
[2022-09-05 09:31] VITALS: BP 97/61; PULSE 72; RESP 16; TEMP 36.2; O2SAT 100; BMI 22.3
[2022-09-05 10:06] LABS: Bacteria 0 SEEN /hpf (None Seen); Color, Urine Yellow (Yellow); Glucose, Dipstick Normal (Normal); Ketone-Dipstick Negative (Negative); Leukocyte Esterase-Dipstick 25 /ul (Negative); Mucous, Urine 0 SEEN /hpf (<or=2+); Nitrite-Dipstick Negative (Negative); Occult Blood-Urine 25 /ul (Negative); Protein-Dipstick Negative (Negative); Red Blood Cells-Urine 0 SEEN /hpf (0-5); Squamous Epithelial Cells - UA 0 SEEN /hpf (5-10); Urine Bilirubin Dipstick Negative (Negative); Urine Clarity Clear (Clear); Urine Urobilinogen Normal (Normal)
[2022-09-05 10:14] LABS: Internal QC Validated? YES +Cl - CLEAR BKGD; Pregnancy, Urine Negative Negative; White Blood Cells 0-5 SEEN /hpf (0-5)
--- NOTE | 2022-09-05 10:54 | CT_ITS ---
STUDY: CT ABDOMEN AND PELVIS WITHOUT CONTRAST REASON FOR EXAM: Female, 32 years old. Abdominal pain, burning with urination, recent exploratory laparoscopy. RADIATION DOSAGE (If Supplied By Facility): CTDIvol = ( 6.67 ) mGy, DLP = ( 354.69 ) mGycm TECHNIQUE: Transaxial images were obtained from the dome of the diaphragm to the symphysis pubis without oral contrast, and without intravenous contrast. Sagittal and coronal images were reconstructed. Individualized dose optimization techniques were used for this CT. COMPARISON: July 29, 2022 FINDINGS: The visualized lung bases are unremarkable. The visualized portions of the heart are within normal limits. There is mild free intraperitoneal air in the abdomen. Normal liver. Normal gallbladder and extrahepatic biliary system. Normal spleen. Normal pancreas. Normal bilateral adrenal glands. Normal right kidney. Normal left kidney. Normal visualized stomach. Normal small intestine. Normal colon. There is moderate stool. There is non-visualization of the appendix. Normal abdominal aorta. Normal inferior vena cava. Normal retroperitoneum. There is mild air in the urinary bladder. Normal visualized uterus. There is no free fluid in the abdomen or pelvis. Normal abdominal wall. Normal osseous structures. CT/Abdomen/Pelvis without Cont IMPRESSION: Mild pneumoperitoneum consistent with recent postoperative status. Air in the urinary bladder suggesting recent catheterization versus infection. Electronically Signed: Aneesh Lassiter MD at 12:14 EDT ,
[2022-09-05 11:19] LABS: Absolute Lymphocyte Count 1.36 X10^3/uL (0.83-4.51); Absolute Neutrophil Count 3.2 X10^3/uL (2.0-7.7); Basophil# 0.03 X10^3/uL; Basophil% 0.6 % (0-1); Eosinophil# 0.12 X10^3/uL; Eosinophils% 2.4 % (0-5); Hematocrit 35.5 % (37-47); Hemoglobin 11.7 g/dL (12.0-15.0); Lymphocyte # 1.36 X10^3/ul (0.83-4.51); Lymphocyte % 27.3 % (19-41); Mean Corpuscular Hgb 31.5 pg (27.0-32.0); Mean Corpuscular Volume 95.7 fL (81-99); Monocyte# 0.31 X10^3/uL; Monocyte% 6.2 % (0-10); NRBC Flagged by Analyzer 0 % (0-5); Neutrophil # 3.16 X10^3/uL (2.7-7.7); Neutrophil % 63.3 % (47-70); Platelet Count 212 K/mm3 (150-450); RBC Distribution Width CV 12.3 % (11.6-14.6); RBC Distribution Width SD 42.8 fl (35.1-43.9); Red Blood Count 3.71 M/mm3 (4.2-5.4)
[2022-09-05 11:33] LABS: Anion Gap 2 (5-15); BUN 7 mg/dL (7-18); BUN/Creat Ratio 9.4 RATIO (10-20); Calcium,Total 8.7 mg/dL (8.5-10.1); Chloride 109 mmol/L (98-107); Creatinine, Serum 0.75 mg/dL (0.55-1.02); EST Glomerular Filtration Rate 96 mL/min (>60); Est Glom Filt Rate - Afr Amer 116 mL/min (>60); Estimated Creatinine Clearance 109.64 ml/min; Glucose 94 mg/dL (74-106); Potassium 3.8 mmol/L (3.5-5.1); Sodium Level 140 mmol/L (136-145)
--- NOTE | 2022-09-05 12:10 | EDS_ITS ---
HPI History of Present Illness Chief Complaint: Complaint Informant: patient Onset/Context/Timing Onset: Yesterday Context: Sudden Onset Timing: Continuous Quality: Burning Location: Lower abdomen Worsened by: Urination Relieved by: Nothing Narrative Narrative: Patient presents with dysuria that began yesterday. Patient states she has burning that is constant. Patient states it is worse when she urinates. Patient states it is over the lower abdomen. Patient states she had a laparoscopy 2 days ago. Patient is concerned about possible urinary tract infection. Patient denies any fevers or chills. Patient admits to some nausea but denies any vomiting. Patient admits to some typical postoperative abdominal pain but denies any severe pain. [facility] Medical History (Updated 09/05/22 @ 13:[address] Jorge A Vasquez DO) Abnormal weight loss Anxiety Arthritis Chest pain Chronic neck and back pain Depression Fatigue Fever History of attempted suicide Limb weakness Mitral valve regurgitation Shoulder pain SOB (shortness of breath) Home Medications ondansetron 4 mg disintegrating tablet 4 mg PO Q8H PRN PRN Nausea #10 tabs [Rx Last Taken Unknown] naproxen 500 mg tablet (Naprosyn) 500 mg PO BID PRN pain #20 tabs 07/25/22 [Rx Last Taken Unknown] ondansetron 4 mg disintegrating tablet 4 mg PO TID PRN nausea and vomiting #21 tabs 07/29/22 [Rx Last Taken Unknown] oxycodone-acetaminophen 5 mg-325 mg tablet (Percocet) 1 tab PO Q6H PRN pain 3 days #12 tabs 07/29/22 [Rx Last Taken Unknown] phenazopyridine 200 mg tablet (Pyridium) 200 mg PO TID #10 tabs 09/05/22 [Rx Last Taken Unknown] Allergy/AdvReac Type Severity Reaction Status Date / Time cinnamon Allergy unknown Verified 07/29/22 03:48 horse dander Allergy Itching Verified 07/29/22 03:48 Family History Other Anemia Heart defect Heart enlarged Hypoglycemia Surgical History (Updated 09/05/22 @ 12:[address] Jorge A Vasquez DO) Hx of laparoscopy Social History household members: none Smoking Status: Never smoker alcohol intake: never ROS ROS ED Constitutional Constitutional ED: Denies chills or fever(s) Eyes Eyes: Denies blurry vision or change in vision ENT ENT ED: Denies rhinorrhea or sore throat Cardiovascular Cardiovascular: Denies chest pain or palpitations Respiratory/Chest Respiratory/Chest: Denies cough or dyspnea Gastrointestinal Gastrointestinal: Reports abdominal pain and nausea; Denies vomiting Genitourinary Genitourinary ED: Reports dysuria; Denies hematuria Musculoskeletal Musculoskeletal: Reports neck pain; Denies back pain Integumentary Denies abscess or rash Neurologic Neurologic: Denies headache(s) or weakness Allergic/Immunologic Allergic/Immunologic ED: Denies mouth swelling or urticaria EXAM Physical Exam Const Vital Signs: 09/05/22 09:31 Temperature 97.2 F L Temperature Source Temporal Pulse Rate 72 Respiratory Rate 16 Blood Pressure 97/61 Blood Pressure Mean 73 Pulse Ox 100 Oxygen Delivery Method Room Air Positive well nourished and well developed General Appearance ED: well developed and NAD HEENT Reports moist mucous membranes Neck supple and no JVD Resp normal respiratory effort and clear to auscultation bilaterally Cardio regular rate, regular rhythm and no murmurs GI normal to inspection, nondistended, normoactive bowel sounds Palpation: soft and tender LLQ, RLQ, periumbilical and suprapubic; Negative for rebound tenderness present Extremity normal to inspection General Extremety ED: Negative for edema or tenderness General Extremity: Negative for edema Neuro oriented x3, CN's II-XII intact bilaterally and no sensory deficits noted Sensorium / Orientation: alert Motor Exam: strength 5/5 throughout Psych mental status grossly normal Skin no rashes or lesions noted MDM MDM MDM Narrative Medical decision making narrative: Differential diagnosis includes urinary tract infection, postoperative infection, and bleeding. CBC will be obtained to assess for leukocytosis and anemia. Basic metabolic profile will be obtained to assess for electrolyte abnormality and renal function. Urinalysis will be obtained to assess for urinary tract infection. Urine hCG will be obtained to assess for . Lab Data Attestation: I reviewed the patient's lab results. Lab results narrative: Urinalysis was reviewed. There is no evidence of urinary tract infection or hematuria. Urine hCG was reviewed and was negative. CBC was reviewed. There is a mild anemia with a hemoglobin of 11.7 and hematocrit 35.5. Basic metabolic profile was reviewed and was within normal limits. Labs: Laboratory Results - last 24 hr 09/05/22 09/05/22 09/05/22 09:40 11:14 11:14 WBC 5.0 RBC 3.71 L Hgb 11.7 L Hct 35.5 L MCV 95.7 MCH 31.5 MCHC 33.0 RDW Std Deviation 42.8 RDW Coeff of Jonathan 12.3 Plt Count 212 MPV 10.0 Immature Gran % (Auto) 0.200 Neut % (Auto) 63.3 Lymph % (Auto) 27.3 Imperial % (Auto) 6.2 Eos % (Auto) 2.4 Baso % (Auto) 0.6 Absolute Neuts (auto) 3.2 Absolute Lymphs (auto) 1.36 Nucleated RBC % 0 Sodium 140 Potassium 3.8 Chloride 109 H Carbon Dioxide 29.0 Anion Gap 2 L BUN 7 Creatinine 0.75 Estim Creat Clear Calc 109.64 Est GFR (MDRD) Af Amer 116 Est GFR (MDRD) Non-Af 96 BUN/Creatinine Ratio 9.4 L Glucose 94 Calcium 8.7 Urine Color Yellow Urine Clarity Clear Urine pH 7.0 Ur Specific [place] 1.010 Urine Protein Negative Urine Glucose (UA) Normal Urine Ketones Negative Urine Occult Blood 25 H Urine Nitrite Negative Urine Bilirubin Negative Urine Urobilinogen Normal Ur Leukocyte Esterase 25 H Urine RBC 0 SEEN Urine WBC 0-5 SEEN Ur Squamous Epith Cells 0 SEEN Urine Bacteria 0 SEEN Urine Mucus 0 SEEN Urine Test Negative Treatment and Re-Evaluation :: Patient was advised of her findings. Patient is feeling better on reevaluation. Patient was given a prescription for Pyridium for symptomatic treatment. Patient was instructed to follow-up with her primary care physician and surgeon in 5 to 7 days. Patient understood and was agreeable with the plan. All questions were answered. Discharge Plan Triage Chief Complaint: Complaint ED Provider: Jorge A Vasquez Dx/Rx/DC Orders Clinical Impression: Dysuria Instructions: ED Dysuria, Uncertain Cause (Adult) Prescriptions: New phenazopyridine [Pyridium] 200 mg tablet 200 mg PO TID Qty: 10 0RF No Action ondansetron [ondansetron] 4 mg tablet,disintegrating 4 mg PO Q8H PRN PRN (Reason: Nausea) Qty: 10 0RF naproxen [Naprosyn] 500 mg tablet 500 mg PO BID PRN (Reason: pain) Qty: 20 0RF ondansetron 4 mg tablet,disintegrating 4 mg PO TID PRN (Reason: nausea and vomiting) Qty: 21 0RF oxycodone-acetaminophen [Percocet] 5-325 mg tablet 1 tab PO Q6H PRN (Reason: pain) 3 Days Qty: 12 0RF Primary Care Provider: Shashi Sandoval NP Referrals: Shashi Sandoval TOP LIFT TRIMMER, TOP LIFT TRIMMER-C [Primary Care Provider] - 3-5 Days Disposition Disposition: Home, Self Care
== END 2022-09-05 13:15 | disposition home or self-care (01) ==
PROVIDERS: Emergency Provider Emergency Medicine; PCP Nurse Practitioner Primary Care; Visit Provider Emergency Medicine
DX: R30.0 Dysuria (principal)
CPT/HCPCS: 74176; 80048; 81001; 81025; 85025; 99284; A4216

== ENCOUNTER 2022-09-30 11:56 | Emergency (ER) | payer BC, MEDICAID, SELFPAY ==
[2022-09-30 11:57] VITALS: BP 110/70; PULSE 103; RESP 18; TEMP 35.9; O2SAT 99; BMI 22.7
--- NOTE | 2022-09-30 12:37 | ED.VIS.GI ---
HPI HPI - GI History of Present Illness Chief Complaint: GI Bleed Informant: patient Narrative Narrative: Patient to her doctors at [facility] who stated she should come to the ER for some GI bleed that she had this morning. Patient's head bright red blood on the stool off and on for months or longer. Triage notes that it worsened after laparoscopy in August but she was really not telling me that. It did have a worse episode this morning. Commonly will hurt when she moves her bowels and she will get some blood. This morning she had more blood on the stool. She states is not hurting now. She does not have fevers or chills. No lightheadedness. No blood thinners other than daily Motrin. She was counseled to maybe cut back on this. She states she is pretty sure she has had hemorrhoids before. She has an appointment with GI she thinks it is coming up this coming . She states she was just recently the hospital and had blood work within the last day or 2 although I do not have access to that. No nausea vomiting. [facility] Medical History Abnormal weight loss Anxiety Arthritis Chest pain Chronic neck and back pain Depression Fatigue Fever History of attempted suicide Limb weakness Mitral valve regurgitation Shoulder pain SOB (shortness of breath) Home Medications ondansetron 4 mg disintegrating tablet 4 mg PO Q8H PRN PRN Nausea #10 tabs 06/08/22 [Rx Last Taken Unknown] naproxen 500 mg tablet (Naprosyn) 500 mg PO BID PRN pain #20 tabs 07/25/22 [Rx Last Taken Unknown] ondansetron 4 mg disintegrating tablet 4 mg PO TID PRN nausea and vomiting #21 tabs 07/29/22 [Rx Last Taken Unknown] oxycodone-acetaminophen 5 mg-325 mg tablet (Percocet) 1 tab PO Q6H PRN pain 3 days #12 tabs 07/29/22 [Rx Last Taken Unknown] phenazopyridine 200 mg tablet (Pyridium) 200 mg PO TID #10 tabs 09/05/22 [Rx Last Taken Unknown] hydrocortisone 1 % topical cream (Proctocort) 1 applic topical TID PRN pain or bleeding #28.4 grams 09/30/22 [Rx Last Taken Unknown] Allergy/AdvReac Type Severity Reaction Status Date / Time cinnamon Allergy unknown Verified 09/30/22 11:59 horse dander Allergy Itching Verified 09/30/22 11:59 Family History Other Anemia Heart defect Heart enlarged Hypoglycemia Surgical History Hx of laparoscopy Social History household members: none Smoking Status: Never smoker alcohol intake: never ROS ROS ED ROS Narrative A complete review of systems was performed and is negative except as documented in the history of present illness. Some specific details below. Constitutional: No recent fevers or chills. EYE: No visual complaints or pain. ENT: No difficulty swallowing. No swelling. No pain. CV: No chest pain or palpitations. Respiratory: No dyspnea. No hemoptysis. No difficulty taking breaths. GI: Please see history of present illness. : No frequency dysuria or hematuria. Musculoskeletal: No recent trauma. No pains. Skin: No rash. Nondiaphoretic. Neuro: No weakness or numbness. Endocrine: No polyuria or polydipsia. EXAM Physical Exam Narrative Exam Narrative: CONSTITUTIONAL: Patient is nontoxic in appearance. The patient looks comfortable. HEENT: No notable trauma. Mucous membranes moist. No sinus tenderness. No indication of pain with swallowing. No intraoral petechiae. EYES: No conjunctival injection. No proptosis. CARDIOVASCULAR: Regular rate. Regular rhythm. No notable murmur. No JVD. RESPIRATORY: No respiratory distress. Breathing is unlabored. No wheezes. No rhonchi. No rales. No pain with a deep breath. GASTROINTESTINAL: Not distended. Bowel sounds are normal. No tenderness. No guarding. No rebound. No palpable mass. No bruit. Rectal exam shows a rectal fissure that does look like it is open. It is tender right at the fissure but nowhere else. I see no hemorrhoid. There is no bleeding. There is no sign of infection. I think this was likely the source of her bleeding. GENITOURINARY: No tenderness over the bladder. No CVA tenderness. MUSCULOSKELETAL: Atraumatic. No peripheral edema. No cord. No tenderness along the deep venous system. No asymmetry. NEUROLOGICAL: Patient is alert and appropriate. No focal deficit noted. SKIN: No noted rashes. No diaphoresis. PSYCHIATRIC: Patient is calm. Mood is appropriate. Const Vital Signs: 09/30/22 11:57 Temperature 96.7 F L Temperature Source Temporal Pulse Rate 103 H Respiratory Rate 18 Blood Pressure 110/70 Blood Pressure Mean 83 Pulse Ox 99 Oxygen Delivery Method Room Air MDM MDM MDM Narrative Medical decision making narrative: Patient's conjunctive are not pale. Her skin is not pale. She is not having active bleeding. She had 1 episode of red blood with stool. She showed me a picture that had brown stools with some bright red blood on it. This is consistent with her rectal fissure. We discussed treatment. Stool softeners MiraLAX and local treatment and reasons to return. She should still follow-up with GI. Discharge Plan Triage Chief Complaint: GI Bleed ED Provider: Matty Foster Dx/Rx/DC Orders Clinical Impression: Rectal fissure, Bright red rectal bleeding Instructions: ED Understanding Anal Fissures Prescriptions: New hydrocortisone [Proctocort] 1 % cream 1 applic topical TID PRN (Reason: pain or bleeding) Qty: 28.4 0RF No Action ondansetron [ondansetron] 4 mg tablet,disintegrating 4 mg PO Q8H PRN PRN (Reason: Nausea) Qty: 10 0RF naproxen [Naprosyn] 500 mg tablet 500 mg PO BID PRN (Reason: pain) Qty: 20 0RF ondansetron 4 mg tablet,disintegrating 4 mg PO TID PRN (Reason: nausea and vomiting) Qty: 21 0RF oxycodone-acetaminophen [Percocet] 5-325 mg tablet 1 tab PO Q6H PRN (Reason: pain) 3 Days Qty: 12 0RF phenazopyridine [Pyridium] 200 mg tablet 200 mg PO TID Qty: 10 0RF Primary Care Provider: Shashi Sandoval NP Referrals: Shashi Sandoval NP, VIBRATION ANALYST-C [Primary Care Provider] - Activity Restrictions/Additional Instructions: Follow-up with gastroenterology as scheduled. Disposition Disposition: Home, Self Care
== END 2022-09-30 12:48 | disposition home or self-care (01) ==
PROVIDERS: Emergency Provider Emergency Medicine; PCP Nurse Practitioner Primary Care; Visit Provider Emergency Medicine
DX: K60.2 Anal fissure, unspecified (principal)
CPT/HCPCS: 99282

== ENCOUNTER → 2022-11-04 | Outpatient (CLI) | payer BC, MEDICAID, SELFPAY ==
[2022-11-04 12:35] LABS: Erythrocyte Sedimentation Rate 9 mm/hr (0-30)
[2022-11-04 13:15] LABS: CRP < 2.90 mg/L (0.0-3.0); T4 Total, Thyroxin 9.6 ug/dL (4.8-13.9); Thyroid Stim Hormone (TSH) 1.32 uIU/mL (0.358-3.74)
[2022-11-05 16:09] LABS: Endomysial Antibody IgA Negative (Negative); Immunoglobulin A 229 mg/dL (87-352); t-Transglutaminase IgA <2 U/mL (0-3)
== END | disposition home or self-care (01) ==
PROVIDERS: PCP Nurse Practitioner Primary Care; Referring Provider Internal Medicine Gastroenterology; Visit Provider Internal Medicine Gastroenterology
DX: R10.9 Unspecified abdominal pain (principal); R19.7 Diarrhea, unspecified
CPT/HCPCS: 36415; 82784; 83516; 84436; 84443; 85652; 86140; 86255

== ENCOUNTER → 2022-11-10 | Outpatient (CLI) | payer BC, MEDICAID, SELFPAY ==
--- NOTE | 2022-11-10 06:53 | RAD_ITS ---
EXAMINATION: Fluoroscopic small bowel follow-through with serial films. INDICATION: ABD PAIN, DIARRHEA EXAMINATION/TECHNIQUE: Barium oral contrast was administered orally via mouth to the patient. Total Fluoroscopic Time: 19 seconds AND number of Images: 9 Radiation dosage index: 6.69 mGy. COMPARISON: CT abdomen and pelvis from 09/05/2022. FINDINGS: Initial electro mechanical engineer radiographs demonstrates large stool burden with an otherwise nonobstructive bowel gas pattern. No abnormal calcifications or radiopaque foreign bodies. The bones and soft tissues are unremarkable. There is no obstruction. Small bowel transit time is within normal limits. The mucosal pattern is unremarkable. The terminal ileum is unremarkable. RAD/Small Bowel Series Only IMPRESSION: 1. Large stool burden with an otherwise nonobstructive bowel gas pattern. 2. Normal small bowel follow-through study. Electronically Signed: Manoj Romero DO at 11:05 EDT ,
== END | disposition home or self-care (01) ==
LOC: RAD 06:47
PROVIDERS: PCP Nurse Practitioner Primary Care; Referring Provider Internal Medicine Gastroenterology; Visit Provider Internal Medicine Gastroenterology
DX: R10.9 Unspecified abdominal pain (principal); R19.7 Diarrhea, unspecified
CPT/HCPCS: 74250

== ENCOUNTER 2022-12-01 21:47 | Emergency (ER) | payer BC, MEDICAID, SELFPAY ==
[2022-12-01 21:48] VITALS: BP 103/56; PULSE 79; RESP 15; TEMP 36.3; O2SAT 98; BMI 22.0
--- NOTE | 2022-12-02 00:29 | EX.ED.DYSGE1 ---
HPI History of Present Illness Chief Complaint: Lower Extremity Injury Informant: patient Narrative Narrative: Patient is a 32-year-old female who states she has been having left knee pain for approximately 6 months. She has been seen in the ER and had negative x-rays and states she is also followed up with orthopedic surgery as well as a physical therapist. She states that her recent orthopedic evaluation suggested that the pain could be secondary to her back. Patient denies any back pain associated with this. She denies any loss of bowel or bladder control or IV drug use. She states she was started on prednisone as it was felt this was an inflammatory process but that she has been taking it without any symptom improvement and as she is having difficulty sleeping secondary to the pain comes in for evaluation [facility] Medical History Abnormal weight loss Anxiety Arthritis Chest pain Chronic neck and back pain Depression Fatigue Fever History of attempted suicide Limb weakness Mitral valve regurgitation Shoulder pain SOB (shortness of breath) Home Medications ondansetron 4 mg disintegrating tablet 4 mg PO Q8H PRN PRN Nausea #10 tabs 06/08/22 [Rx Last Taken Unknown] naproxen 500 mg tablet (Naprosyn) 500 mg PO BID PRN pain #20 tabs 07/25/22 [Rx Last Taken Unknown] ondansetron 4 mg disintegrating tablet 4 mg PO TID PRN nausea and vomiting #21 tabs 07/29/22 [Rx Last Taken Unknown] oxycodone-acetaminophen 5 mg-325 mg tablet (Percocet) 1 tab PO Q6H PRN pain 3 days #12 tabs 07/29/22 [Rx Last Taken 12/01/22 18:30] phenazopyridine 200 mg tablet (Pyridium) 200 mg PO TID #10 tabs 09/05/22 [Rx Last Taken Unknown] hydrocortisone 1 % topical cream (Proctocort) 1 applic topical TID PRN pain or bleeding #28.4 grams 09/30/22 [Rx Last Taken Unknown] oxycodone-acetaminophen 5 mg-325 mg tablet (Percocet) 1 tab PO Q6H PRN pain 3 days #12 tabs 12/02/22 [Rx Last Taken Unknown] Allergy/AdvReac Type Severity Reaction Status Date / Time cinnamon Allergy unknown Verified 12/01/22 21:51 horse dander Allergy Itching Verified 12/01/22 21:51 Family History Other Anemia Heart defect Heart enlarged Hypoglycemia Surgical History Hx of laparoscopy Social History household members: none Smoking Status: Never smoker alcohol intake: never ROS ROS ED Constitutional Constitutional ED: Denies chills or fever(s) ENT ENT ED: Denies sore throat Cardiovascular Cardiovascular: Denies chest pain Respiratory/Chest Respiratory/Chest: Denies cough or dyspnea Gastrointestinal Gastrointestinal: Denies abdominal pain, diarrhea, nausea or vomiting Genitourinary Genitourinary ED: Denies dysuria Musculoskeletal Musculoskeletal: Reports other Details: Positive left knee pain ; Denies back pain Integumentary Denies Abrasions or rash Neurologic Neurologic: Denies headache(s) or paresthesias Hematologic/Lymphatic Hematologic/Lymphatic: Denies easy bleeding or easy bruising EXAM Physical Exam Const Vital Signs: 12/01/22 21:48 Temperature 97.4 F L Temperature Source Temporal Pulse Rate 79 Respiratory Rate 15 Blood Pressure 103/56 L Blood Pressure Mean 71 Pulse Ox 98 Oxygen Delivery Method Room Air Positive well nourished and well developed General Appearance ED: well developed HEENT HEENT Narrative: Normocephalic atraumatic Eyes PERRL and EOMs intact bilaterally Neck supple Resp normal respiratory effort and clear to auscultation bilaterally Cardio regular rate and regular rhythm Back/Spine Back/Spine Narrative: No saddle anesthesia. Patellar reflexes are plus 2 out of 4 bilaterally. No clonus or Babinski. Patient does report increased pain down the left leg with straight leg raising at approximately 45 degrees. Extremity Extremity Narrative: Left lower extremity is neurovascularly intact. There is no bony deformity or joint effusion. Patellar tendon is intact and knee ligaments are stable. No soft tissue changes to suggest trauma or infection. Capillary refill is less than 3 seconds going against arterial occlusion. Negative Homans' sign. Compartments are soft and compressible going against compartment syndrome. Neuro oriented x3 and CN's II-XII intact bilaterally Sensorium / Orientation: alert Psych Psych Narrative: Patient has a nervous/anxious affect Skin no rashes or lesions noted MDM MDM MDM Narrative Medical decision making narrative: Patient presented to the ER with complaint of left knee pain has been present for multiple months with no recent trauma or excessive activity. She has had x-rays which were negative and by exam there is no signs of cellulitis or abscess. There is no ligamentous laxity or patellar tendon injury and no obvious findings to suggest lack of blood flow and arterial occlusion or DVT. Therefore at this time I do not feel the need to be done any laboratory or imaging studies. Patient was informed that she does need to follow-up with her orthopedic physician as well as physical therapist to discuss potential MRI to assess the joint structures because of her recurrent pain but at this time as exam does not indicate any acute bony abnormality ligamentous tear or signs of infection there is no need for further work-up and she is otherwise safe for discharge History & Record Review Discussion w/independent historian: Patient Discharge Plan Triage Chief Complaint: Lower Extremity Injury ED Provider: Jacoby Reyna Dx/Rx/DC Orders Clinical Impression: Left knee pain Instructions: ED Knee Pain of Uncertain Cause Prescriptions: New oxycodone-acetaminophen [Percocet] 5-325 mg tablet 1 tab PO Q6H PRN (Reason: pain) 3 Days Qty: 12 0RF No Action ondansetron [ondansetron] 4 mg tablet,disintegrating 4 mg PO Q8H PRN PRN (Reason: Nausea) Qty: 10 0RF naproxen [Naprosyn] 500 mg tablet 500 mg PO BID PRN (Reason: pain) Qty: 20 0RF ondansetron 4 mg tablet,disintegrating 4 mg PO TID PRN (Reason: nausea and vomiting) Qty: 21 0RF oxycodone-acetaminophen [Percocet] 5-325 mg tablet 1 tab PO Q6H PRN (Reason: pain) 3 Days Qty: 12 0RF phenazopyridine [Pyridium] 200 mg tablet 200 mg PO TID Qty: 10 0RF hydrocortisone [Proctocort] 1 % cream 1 applic topical TID PRN (Reason: pain or bleeding) Qty: 28.4 0RF Primary Care Provider: Shashi Sandoval NP Referrals: Shashi Sandoval NP, EVENT PROMOTER-C [Primary Care Provider] - Activity Restrictions/Additional Instructions: You need to continue performing physical therapy and following with orthopedics to discuss need for further treatment strategies and testing such as MRI of your knee and back Disposition Disposition: Home, Self Care Discharge Date/Time: 12/02/22 00:52
[2022-12-02] MEDS: HYDROcodone Bitartrate/Apap 5/325 Tablet PO (00:43)
== END 2022-12-02 00:52 | disposition home or self-care (01) ==
PROVIDERS: Emergency Provider Emergency Medicine; PCP Nurse Practitioner Primary Care; Visit Provider Emergency Medicine
DX: M25.562 Pain in left knee (principal)
CPT/HCPCS: 99283

== ENCOUNTER 2023-04-06 10:44 | Emergency (ER) | payer BC, MEDICAID, SELFPAY ==
[2023-04-06 10:46] VITALS: BP 97/47; PULSE 83; RESP 14; TEMP 36.8; O2SAT 97; BMI 24.0
--- NOTE | 2023-04-06 11:28 | EDS_ITS ---
HPI History of Present Illness Chief Complaint: Abd Pain Narrative Narrative: Patient is referred over by urgent care for abdominal pain. Patient states that she went to urgent care because she thought she might have a low-grade fever today. She has had a runny nose for a week or so and just thought it was allergies. But when she had a subjective fever she thought she should be evaluated. She is not coughing. No myalgias. She states she always has some abdominal pain that is normal for her. There are some days its worse some days it is better. Some days she gets a little bit of nausea. But she did not think the abdomen was different today than it has been. She was sent here because when the provider at urgent care pressed on her abdomen she she stated hurt. Therefore she was referred here. Patient is finishing up doxycycline and is on about day 8. This was because she was exposed to chlamydia. She states she never had any pelvic pain or symptoms. She might of had a slight discharge only. But her partner was diagnosed with chlamydia so they tested her and tr eated her. She has never had chlamydia before. She has been taking tests at home and they have all been negative. [facility] Medical History Abnormal weight loss Anxiety Arthritis Chest pain Chronic neck and back pain Depression Fatigue Fever History of attempted suicide Limb weakness Mitral valve regurgitation Shoulder pain SOB (shortness of breath) Home Medications ondansetron 4 mg disintegrating tablet 4 mg PO Q8H PRN PRN Nausea #10 tabs 06/08/22 [Rx Last Taken Unknown] naproxen 500 mg tablet (Naprosyn) 500 mg PO BID PRN pain #20 tabs 07/25/22 [Rx Last Taken Unknown] ondansetron 4 mg disintegrating tablet 4 mg PO TID PRN nausea and vomiting #21 tabs 07/29/22 [Rx Last Taken Unknown] oxycodone-acetaminophen 5 mg-325 mg tablet (Percocet) 1 tab PO Q6H PRN pain 3 days #12 tabs 07/29/22 [Rx Last Taken 12/01/22 18:30] phenazopyridine 200 mg tablet (Pyridium) 200 mg PO TID #10 tabs 09/05/22 [Rx Last Taken Unknown] hydrocortisone 1 % topical cream (Proctocort) 1 applic topical TID PRN pain or b leeding #28.4 grams 09/30/22 [Rx Last Taken Unknown] oxycodone-acetaminophen 5 mg-325 mg tablet (Percocet) 1 tab PO Q6H PRN pain 3 days #12 tabs 12/02/22 [Rx Last Taken Unknown] Allergy/AdvReac Type Severity Reaction Status Date / Time cinnamon Allergy unknown Verified 04/06/23 10:46 horse dander Allergy Itching Verified 04/06/23 10:46 amoxicillin [From Augmentin] AdvReac Mild Nausea/Vom/ Verified 04/06/23 10:46 Diarrhea clavulanic acid AdvReac Mild Nausea/Vom/ Verified 04/06/23 10:46 [From Augmentin] Diarrhea Family History Other Anemia Heart defect Heart enlarged Hypoglycemia Surgical History Hx of laparoscopy Social History household members: none Smoking Status: Never smoker alcohol intake: never ROS ROS ED Constitutional Constitutional ED: Reports subjective; Denies chills Eyes Eyes: Denies change in vision ENT ENT ED: Reports rhinorrhea; Denies ear pain or sore throat Cardiovascular Cardiovascular: Denies chest pain or palpitations Respiratory/Chest Respiratory/Chest: Denies cough or dyspnea Gastrointestinal Gastrointestinal: Reports abdominal pain and other Details: see HPPI ; Denies constipation, diarrhea, melena, nausea or vomiting Genitourinary Genitourinary ED: Denies dysuria or hematuria Musculoskeletal Musculoskeletal: Denies myalgias Integumentary Denies rash Neurologic Neurologic: Denies headache(s) Endocrine Endocrinology: Denies polydipsia or polyuria Hematologic/Lymphatic Hematologic/Lymphatic: Denies lymphadenopathy Allergic/Immunologic Allergic/Immunologic ED: Denies urticaria EXAM Physical Exam Narrative Exam Narrative: CONSTITUTIONAL: Patient is nontoxic in appearance. The patient looks comfortable. Patient tells me she was not concerned. She did not really think she needed to come here. HEENT: No notable trauma. Mucous membranes moist. No sinus tenderness. No indication of pain with swallowing. EYES: No conjunctival injection. No proptosis. CARDIOVASCULAR: Regular rate. Regular rhythm. No notable murmur. No JVD. RESPIRATORY: No respiratory distress. Breathing is unlabored. No wheezes. No rhonchi. No rales. No pain with a deep breath. GASTROINTESTINAL: Not distended. Bowel sounds are normal. Patient may have just a hint of epigastric only tenderness. No guarding. No rebound. No palpable mass. No bruit. There is no right upper quadrant tenderness. There is no pelvic tenderness. GENITOURINARY: No tenderness over the bladder. No CVA tenderness. MUSCULOSKELETAL: Atraumatic. No rash. No swollen joints NEUROLOGICAL: Patient is alert and appropriate. SKIN: No noted rashes. No diaphoresis. PSYCHIATRIC: Patient is calm. Mood is appropriate. Const Vital Signs: 04/06/23 10:46 Temperature 98.2 F Temperature Source Oral Pulse Rate 83 Respiratory Rate 14 Blood Pressure 97/47 L Blood Pressure Mean 63 Pulse Ox 97 Oxygen Delivery Method Room Air MDM MDM MDM Narrative Medical decision making narrative: CBC normal. Patient's electrolytes are normal other than minimally low potassium that will self-correct. patient's liver function test are normal. Patient's serum is normal. Patient's urinalysis is normal. I talked with and check patient again. She had told the nurse she wants something for abdominal pain and nausea. But when I saw her she was not having this. I then wrote for some meds for abdominal pain and nausea. When the nurse went to give them she stated she did not want them because she does not have abdominal pain or nausea now. I talked to her that some of her symptoms may be related to being on doxycycline. I offered something for nausea to go. She now states that she has met a since nausea with. Her urine was that she was or not. She wanted to know for sure if she was . She has been checking at home frequently. I get the suspicion she is actually trying to get . But her test is negative. I do not think any further therapy is needed. I see no indication for CT imaging. Her exam is benign at this point. Lab Data Attestation: I reviewed the patient's lab results. Labs: Laboratory Results - last 24 hr 04/06/23 04/06/23 11:40 12:55 WBC 5.4 RBC 4.30 Hgb 13.0 Hct 39.5 MCV 91.9 MCH 30.2 MCHC 32.9 RDW Std Deviation 40.6 RDW Coeff of Jonathan 12.1 Plt Count 268 MPV 9.7 Immature Gran % (Auto) 0.200 Neut % (Auto) 57.8 Lymph % (Auto) 29.1 [place] % (Auto) 8.3 Eos % (Auto) 3.5 Baso % (Auto) 1.1 H Absolute Neuts (auto) 3.1 Absolute Lymphs (auto) 1.58 Nucleated RBC % 0 Sodium 141 Potassium 3.4 L Chloride 108 H Carbon Dioxide 28.0 Anion Gap 5 BUN 11 Creatinine 0.64 Estim Creat Clear Calc 128.48 Est GFR (MDRD) Af Amer 139 Est GFR (MDRD) Non-Af 115 BUN/Creatinine Ratio 17.2 Glucose 91 Calcium 8.7 Total Bilirubin 0.30 AST 11 L ALT 21 Alkaline Phosphatase 58 Total Protein 7.2 Albumin 3.7 Globulin 3.5 Albumin/Globulin Ratio 1.1 Serum , Qual NEGATIVE Urine Color Yellow Urine Clarity Clear Urine pH 6.5 Ur Specific [place] 1.015 Urine Protein 15 H Urine Glucose (UA) Normal Urine Ketones Negative Urine Occult Blood 10 H Urine Nitrite Negative Urine Bilirubin Negative Urine Urobilinogen Normal Ur Leukocyte Esterase 25 H Urine RBC 0-5 SEEN Urine WBC 0-5 SEEN Ur Squamous Epith Cells 0-5 SEEN Urine Bacteria 0 SEEN Urine Mucus 0 SEEN Discharge Plan Triage Chief Complaint: Abd Pain ED Provider: Matty Foster Dx/Rx/DC Orders Clinical Impression: Concern about unplanned without diagnosis, Chronic abdominal pain Instructions: ED Abdominal Pain Unkn Cause Fem Prescriptions: No Action ondansetron [ondansetron] 4 mg tablet,disintegrating 4 mg PO Q8H PRN PRN (Reason: Nausea) Qty: 10 0RF naproxen [Naprosyn] 500 mg tablet 500 mg PO BID PRN (Reason: pain) Qty: 20 0RF ondansetron 4 mg tablet,disintegrating 4 mg PO TID PRN (Reason: nausea and vomiting) Qty: 21 0RF oxycodone-acetaminophen [Percocet] 5-325 mg tablet 1 tab PO Q6H PRN (Reason: pain) 3 Days Qty: 12 0RF phenazopyridine [Pyridium] 200 mg tablet 200 mg PO TID Qty: 10 0RF hydrocortisone [Proctocort] 1 % cream 1 applic topical TID PRN (Reason: pain or bleeding) Qty: 28.4 0RF oxycodone-acetaminophen [Percocet] 5-325 mg tablet 1 tab PO Q6H PRN (Reason: pain) 3 Days Qty: 12 0RF Primary Care Provider: Shashi Sandoval NP Referrals: Shashi Sandoval MEDICAL STAFFING COORDINATOR, MEDICAL STAFFING COORDINATOR-C [Primary Care Provider] - 3-5 Days if not improving Disposition Disposition: Home, Self Care
[2023-04-06 11:50] LABS: Absolute Lymphocyte Count 1.58 X10^3/uL (0.83-4.51); Absolute Neutrophil Count 3.1 X10^3/uL (2.0-7.7); Basophil# 0.06 X10^3/uL; Basophil% 1.1 % (0-1); Eosinophil# 0.19 X10^3/uL; Eosinophils% 3.5 % (0-5); Hematocrit 39.5 % (37-47); Lymphocyte # 1.58 X10^3/ul (0.83-4.51); Lymphocyte % 29.1 % (19-41); Mean Corp Hgb Conc 32.9 g/dL (32-36); Mean Corpuscular Hgb 30.2 pg (27.0-32.0); Mean Corpuscular Volume 91.9 fL (81-99); Mean Platelet Vol. 9.7 fl (6.2-12.0); Monocyte# 0.45 X10^3/uL; Monocyte% 8.3 % (0-10); NRBC Flagged by Analyzer 0 % (0-5); Neutrophil # 3.14 X10^3/uL (2.7-7.7); Neutrophil % 57.8 % (47-70); Platelet Count 268 K/mm3 (150-450); RBC Distribution Width CV 12.1 % (11.6-14.6); RBC Distribution Width SD 40.6 fl (35.1-43.9); White Blood Count 5.4 K/mm3 (4.4-11.0)
[2023-04-06 11:57] LABS: Internal QC Validated? YES +Cl - CLEAR BKGD; Pregnancy, Serum, hCG Quali. NEGATIVE Negative
[2023-04-06 12:05] LABS: ALB/GLOB Ratio 1.1 RATIO (0.9-2.4); AST(SGOT) 11 U/L (15-37); Alanine Aminotransfer ALT/SGPT 21 U/L (13-56); Albumin, Serum 3.7 g/dL (3.2-5.0); Alkaline Phosphatase 58 U/L (45-117); Anion Gap 5 (5-15); BUN 11 mg/dL (7-18); BUN/Creat Ratio 17.2 RATIO (10-20); Calcium,Total 8.7 mg/dL (8.5-10.1); Chloride 108 mmol/L (98-107); Creatinine, Serum 0.64 mg/dL (0.55-1.02); EST Glomerular Filtration Rate 115 mL/min (>60); Est Glom Filt Rate - Afr Amer 139 mL/min (>60); Estimated Creatinine Clearance 128.48 ml/min; Globulin 3.5 g/dL (2.2-4.2); Glucose 91 mg/dL (74-106); Potassium 3.4 mmol/L (3.5-5.1); Protein, Total 7.2 g/dL (6.4-8.2); Sodium Level 141 mmol/L (136-145)
[2023-04-06 13:09] LABS: Bacteria 0 SEEN /hpf (None Seen); Mucous, Urine 0 SEEN /hpf (<or=2+)
[2023-04-06 13:15] LABS: Color, Urine Yellow (Yellow); Glucose, Dipstick Normal (Normal); Ketone-Dipstick Negative (Negative); Leukocyte Esterase-Dipstick 25 /ul (Negative); Nitrite-Dipstick Negative (Negative); Occult Blood-Urine 10 /ul (Negative); Protein-Dipstick 15 mg/dl (Negative); Specific Gravity, Urine 1.015 (1.002-1.030); Urine Bilirubin Dipstick Negative (Negative); Urine Clarity Clear (Clear); Urine Urobilinogen Normal (Normal); Urine pH 6.5 (5.0 - 8.0)
[2023-04-06 13:28] LABS: Squamous Epithelial Cells - UA 0-5 SEEN /hpf (5-10)
[2023-04-06 13:29] LABS: Red Blood Cells-Urine 0-5 SEEN /hpf (0-5); White Blood Cells 0-5 SEEN /hpf (0-5)
[2023-04-06 14:09] VITALS: BP 108/77; PULSE 82; RESP 16; O2SAT 99
== END 2023-04-06 14:10 | disposition home or self-care (01) ==
PROVIDERS: Emergency Provider Emergency Medicine; PCP Nurse Practitioner Primary Care; Visit Provider Emergency Medicine
DX: R10.13 Epigastric pain (principal); G89.29 Other chronic pain; R11.0 Nausea; Z71.1 Person with feared health complaint in whom no diagnosis is made; Z79.891 Long term (current) use of opiate analgesic
CPT/HCPCS: 80053; 81001; 84703; 85025; 99282; J7030; A4216

== ENCOUNTER 2023-06-27 15:17 | Emergency (ER) | payer BC, MEDICAID, SELFPAY ==
[2023-06-27 15:20] VITALS: BP 122/77; PULSE 104; RESP 19; TEMP 37; O2SAT 96; BMI 24.5
--- NOTE | 2023-06-27 15:21 | ED.VIS.CHEST ---
HPI History of Present Illness Chief Complaint: Palpitations [facility] Medical History Abnormal weight loss Anxiety Arthritis Chest pain Chronic neck and back pain Depression Fatigue Fever History of attempted suicide Limb weakness Mitral valve regurgitation Shoulder pain SOB (shortness of breath) Home Medications ondansetron 4 mg disintegrating tablet 4 mg PO Q8H PRN PRN Nausea #10 tabs 06/08/22 [Rx Last Taken Unknown] naproxen 500 mg tablet (Naprosyn) 500 mg PO BID PRN pain #20 tabs 07/25/22 [Rx Last Taken Unknown] ondansetron 4 mg disintegrating tablet 4 mg PO TID PRN nausea and vomiting #21 tabs 07/29/22 [Rx Last Taken Unknown] oxycodone-acetaminophen 5 mg-325 mg tablet (Percocet) 1 tab PO Q6H PRN pain 3 days #12 tabs 07/29/22 [Rx Last Taken 12/01/22 18:30] phenazopyridine 200 mg tablet (Pyridium) 200 mg PO TID #10 tabs 09/05/22 [Rx Last Taken Unknown] hydrocortisone 1 % topical cream (Proctocort) 1 applic topical TID PRN pain or bleeding #28.4 grams 09/30/22 [Rx Last Taken Unknown] oxycodone-acetaminophen 5 mg-325 mg tablet (Percocet) 1 tab PO Q6H PRN pain 3 days #12 tabs 12/02/22 [Rx Last Taken Unknown] fluticasone propionate 50 mcg/actuation nasal spray,suspension 1 spray intranasal DAILY 06/27/23 [History Last Taken Unknown] loratadine 10 mg tablet (Allergy Relief (loratadine)) 10 mg PO DAILY 06/27/23 [History Last Taken Unknown] meloxicam 7.5 mg tablet 7.5 mg PO DAILY 06/27/23 [History Last Taken Unknown] Allergy/AdvReac Type Severity Reaction Status Date / Time cinnamon Allergy unknown Verified 06/27/23 15:20 horse dander Allergy Itching Verified 06/27/23 15:20 amoxicillin [From Augmentin] AdvReac Mild Nausea/Vom/ Verified 06/27/23 15:20 Diarrhea clavulanic acid AdvReac Mild Nausea/Vom/ Verified 06/27/23 15:20 [From Augmentin] Diarrhea Family History Other Anemia Heart defect Heart enlarged Hypoglycemia Surgical History Hx of laparoscopy Social History household members: none Smoking Status: Never smoker alcohol intake: never EXAM Physical Exam Const Vital Signs: 06/27/23 15:20 06/27/23 15:20 06/27/23 16:14 Temperature 98.6 F Temperature Source Oral Pulse Rate 104 H Respiratory Rate 19 H Respiratory Effort Normal Blood Pressure 122/77 H Blood Pressure Mean 92 Pulse Ox 96 Oxygen Delivery Method Room Air Room Air 06/27/23 16:15 06/27/23 17:31 06/27/23 21:55 Temperature Temperature Source Pulse Rate 68 79 92 Respiratory Rate 18 Respiratory Effort Blood Pressure 83/65 L 96/63 100/60 Blood Pressure Mean 71 74 73 Pulse Ox 100 Oxygen Delivery Method Room Air MDM MDM MDM Narrative Medical decision making narrative: HISTORY OF PRESENT ILLNESS: 33-year-old female presents with palpitations. She notes CP. Notes associated palpitations. States this began just prior to arrival. Denies any family history of cardiac before the age of 50. The pain is not radiating it is midsternal it is sharp. Is not associated with cough or shortness of breath. She denies any bleeding diathesis. Denies any unilateral leg swelling. The patient denies recent surgery in the last 4 weeks or immobilization in the last 3 days, denies previous diagnosis of DVT or PE, hemoptysis, unilateral leg swelling or malignancy with treatment the last 6 months or palliative. No estrogen use noted. Patient denies sudden onset of pain, no tearing sensation, no migratory symptoms, no new numbness, weakness or loss of sensation. Patient denies family history or personal history of Connective tissue disorders (Marfan's Syndrome, Samia Danlos etc). REVIEW OF SYSTEMS: Pertinent positives: Palpitations, chest pain Pertinent negatives: Cough, vomiting, melena, hematochezia, hematuria, leg swelling, unilateral leg swelling PHYSICAL EXAM: Nursing triage notes reviewed, Vital signs reviewed Constitutional: please see mdm HENT: MMM Eyes: Pupils equal round and reactive to light, Extraocular muscles intact Neck: No stridor, no JVD, full neck ROM Lungs: Clear to auscultation, No wheezing or rales. No increased work of breathing, no conversational dyspnea, no accessory muscle use, no nasal flaring. No respiratory distress noted Heart: Regular rate and rhythm, No murmurs, No rubs and No gallops, 2+ distal pulses (radial, femoral, posterior tibial) in all extremities Abdomen: Soft, there is no tenderness, rigidity, rebound or guarding, no obvious peritoneal signs, no palpable pulsatile abdominal masses, no auscultated abdominal bruit : No CVAT Extremities: No edema Neuro: No focal neurological deficits, cranial nerves II through XII intact, 5/5 strength in all extremities. Intact sensation to light touch in all extremities, 2+ reflexes bilateral patella tendons. Normal gait. No ataxia. Skin: No rash or lesions noted MEDICAL DECISION MAKING: Chief Complaint: Chest pain, palpitations External records reviewed: No recent cardiac catheterizations, stress test or echocardiograms noted in the chart Factors affecting care: anxiety Social determinants of health: Denies methamphetamine, cocaine abuse MDM Narrative: Patient was initially hemodynamically stable, afebrile, nontoxic-appearing. No focal cardiopulmonary normalities. Patient's blood pressure became soft while she was asleep she also received nitroglycerin by EMS. She was placed in Trendelenburg and 1 L normal saline. Blood pressures were continuously monitored. Blood pressure returned to the patient's baseline of approximately upper 90s systolic to low 100s. I considered the following differential diagnosis: PE less likely given low risk Wells score. Aortic dissection is thought to be less likely given no sudden ripping or tearing pain, migratory pain, palpable pulse inequalities, no focal neurologic deficits concurrent with chest pain. Chance of dissection less than 05/1999. Pericarditis less likely given no pathognomonic EKG changes (no diffuse ST elevations, LA depressions). GI etiology (i.e. Boerhaave syndrome) less likely given no chest or neck crepitus, no vomiting or forced retching. ALL IMAGES (IF OBTAINED) HAVE BEEN PERSONALLY REVIEWED AND INTERPRETED BY MYSELF. High-sensitivity troponin is negative, no evidence of myocardial ischemiax2 TSH, free T3 and T4 show no signs of thyroid dysfunction CBC without leukocytosis, severe anemia, no thrombocytopenia. BMP without evidence of significant electrolyte abnormalities, no anion gap, no acute kidney injury. I have personally reviewed the patient's chest x-ray. Chest x-ray is unremarkable for pulmonary edema, pneumothorax, pneumonia or focal cardiopulmonary abnormality. The synthesis of patient's history, physical exam, labs and images suggest no acute life-limiting etiology including signs of significant endorgan hypoperfusion with a negative lactate, ACS with 2 negative troponins. No clear life-limiting etiology could be ascertained. Encouraged outpatient follow-up for Holter monitor, echocardiogram and potential stress test if the patient and her doctor thought this was necessary. The patient and/or family, caregivers express understanding. The patient and/or family, caregivers agrees with the plan. I completed a HEART Score to screen for Major Adverse Cardiac Event (MACE) in this patient. The evidence indicates that the patient is very low risk for MACE and this is consistent with my clinical intuition. The risk of further workup or hospitalization for MACE is likely higher than the risk of the patient having a MACE. It is, therefore, in the patient?s best interest not to do additional emergent testing or to be hospitalized for MACE at this time. Shared Decision-Making No hospitalization indicated I have discussed with the patient my clinical impression and the result of the HEART Score to screen for MACE, as well as the risks of further testing and hospitalization. The HEART Score shows that the risk for MACE is less than 1%. Although the risk of MACE has not been completely eliminated, the risks of further testing or hospitalization for MACE likely exceed any potential benefit, and the patient agrees with not pursuing further emergent evaluation or hospitalization for MACE at this time. Total critical care time today provided was at least 0 minutes. This excludes separately billable procedures. Critical care time (if documented) is secondary to the patient having high probability of clinically significant/life threatening deterioration in the patient's condition which required my urgent intervention. Impression: 1. Chest pain 2. Palpitations Dispo: Discharge This note was generated with [employer] dictation software. It may contain incorrect words, spelling, and punctuation that were not noted in review of the chart prior to signing. Lab Data Labs: Laboratory Results - last 24 hr 06/27/23 06/27/23 06/27/23 15:05 18:55 19:05 WBC 6.4 RBC 4.83 Hgb 14.6 Hct 42.7 MCV 88.4 MCH 30.2 MCHC 34.2 RDW Std Deviation 36.6 RDW Coeff of [place] 11.5 L Plt Count 290 MPV 10.1 Immature Gran % (Auto) 0.200 Neut % (Auto) 56.9 Lymph % (Auto) 33.5 [place] % (Auto) 6.9 Eos % (Auto) 1.6 Baso % (Auto) 0.9 Absolute Neuts (auto) 3.6 Absolute Lymphs (auto) 2.13 Nucleated RBC % 0 Sodium 136 Potassium 3.3 L Chloride 103 Carbon Dioxide 22.0 Anion Gap 11 BUN 9 Creatinine 0.82 Estim Creat Clear Calc 99.36 Est GFR (MDRD) Af Amer 103 Est GFR (MDRD) Non-Af 86 BUN/Creatinine Ratio 10.9 Glucose 122 H Lactic Acid 1.3 Calcium 9.6 Troponin I High Sens 5 8 TSH 1.64 Free T4 1.30 Free T3 pg/dL 2.7 Urine Test Negative Radiography Diagnostic Testing: Clinical Impression(s) from Imaging Studies Chest X-Ray 06/27/23 16:15 IMPRESSION: Normal x-ray examination of the chest. Electronically Signed: Yogesh Jones MD at 16:53 EST , Discharge Plan Triage Chief Complaint: Palpitations ED Provider: Darryl Gallardo Dx/Rx/DC Orders Clinical Impression: Chest pain Instructions: ED Chest Pain, Uncertain Cause Prescriptions: No Action ondansetron [ondansetron] 4 mg tablet,disintegrating 4 mg PO Q8H PRN PRN (Reason: Nausea) Qty: 10 0RF naproxen [Naprosyn] 500 mg tablet 500 mg PO BID PRN (Reason: pain) Qty: 20 0RF ondansetron 4 mg tablet,disintegrating 4 mg PO TID PRN (Reason: nausea and vomiting) Qty: 21 0RF oxycodone-acetaminophen [Percocet] 5-325 mg tablet 1 tab PO Q6H PRN (Reason: pain) 3 Days Qty: 12 0RF phenazopyridine [Pyridium] 200 mg tablet 200 mg PO TID Qty: 10 0RF hydrocortisone [Proctocort] 1 % cream 1 applic topical TID PRN (Reason: pain or bleeding) Qty: 28.4 0RF oxycodone-acetaminophen [Percocet] 5-325 mg tablet 1 tab PO Q6H PRN (Reason: pain) 3 Days Qty: 12 0RF fluticasone propionate 50 mcg/actuation spray,suspension 1 spray INTRANASAL DAILY loratadine [Allergy Relief (loratadine)] 10 mg tablet 10 mg PO DAILY meloxicam 7.5 mg tablet 7.5 mg PO DAILY Primary Care Provider: Shashi Sandoval NP Referrals: Shashi Sandoval NP, TAKE AWAY ATTENDANT-C [Primary Care Provider] - Activity Restrictions/Additional Instructions: Thank you for trusting us with your care today! Please take Tylenol (2 pills, 650 mg), ibuprofen (2 pills, 400 mg) every 6 hours as needed for pain and fever control. Please return to the emergency department if your symptoms change or worsen. Please follow with your primary care physician for further outpatient evaluation and management. Disposition Disposition: Home, Self Care Discharge Date/Time: 06/27/23 21:58
[2023-06-27 16:15] VITALS: BP 83/65; PULSE 68
--- NOTE | 2023-06-27 16:15 | RAD_ITS ---
STUDY: X-RAY CHEST REASON FOR EXAM: Female, 33 years old. chest pain TECHNIQUE: Single AP portable view of the chest. COMPARISON: 01/02/2022 FINDINGS: The lungs are clear and expanded. There is no demonstrated pleural abnormality. Normal size heart. Normal mediastinum and lorena. Normal visualized pulmonary arteries. Normal visualized aortic arch and descending thoracic aorta. Normal visualized thoracic spine. Normal visualized ribs, clavicles, and shoulders. There is no demonstrated abnormality of the visualized soft tissue structures of the upper abdomen. RAD/Chest 1 View (Portable) IMPRESSION: Normal x-ray examination of the chest. Electronically Signed: Yogesh Jones MD at 16:53 EST ,
[2023-06-27] MEDS: 0.9% Normal Saline (1000mL) 1,000 ML 999 ML IV ×2 (16:16→17:30)
[2023-06-27 16:20] LABS: Absolute Lymphocyte Count 2.13 X10^3/uL (0.83-4.51); Absolute Neutrophil Count 3.6 X10^3/uL (2.0-7.7); Basophil# 0.06 X10^3/uL; Basophil% 0.9 % (0-1); Eosinophils% 1.6 % (0-5); Hematocrit 42.7 % (37-47); Hemoglobin 14.6 g/dL (12.0-15.0); Lymphocyte # 2.13 X10^3/ul (0.83-4.51); Lymphocyte % 33.5 % (19-41); Mean Corp Hgb Conc 34.2 g/dL (32-36); Mean Corpuscular Hgb 30.2 pg (27.0-32.0); Mean Corpuscular Volume 88.4 fL (81-99); Mean Platelet Vol. 10.1 fl (6.2-12.0); Monocyte# 0.44 X10^3/uL; Monocyte% 6.9 % (0-10); NRBC Flagged by Analyzer 0 % (0-5); Neutrophil # 3.61 X10^3/uL (2.7-7.7); Neutrophil % 56.9 % (47-70); Platelet Count 290 K/mm3 (150-450); RBC Distribution Width CV 11.5 % (11.6-14.6); RBC Distribution Width SD 36.6 fl (35.1-43.9); Red Blood Count 4.83 M/mm3 (4.2-5.4); White Blood Count 6.4 K/mm3 (4.4-11.0)
[2023-06-27 16:38] LABS: Anion Gap 11 (5-15); BUN 9 mg/dL (7-18); BUN/Creat Ratio 10.9 RATIO (10-20); Calcium,Total 9.6 mg/dL (8.5-10.1); Chloride 103 mmol/L (98-107); Creatinine, Serum 0.82 mg/dL (0.55-1.02); EST Glomerular Filtration Rate 86 mL/min (>60); Est Glom Filt Rate - Afr Amer 103 mL/min (>60); Estimated Creatinine Clearance 99.36 ml/min; Free T3 2.7 pg/mL (2.18-3.98); Glucose 122 mg/dL (74-106); Potassium 3.3 mmol/L (3.5-5.1); Sodium Level 136 mmol/L (136-145); Thyroid Stim Hormone (TSH) 1.64 uIU/mL (0.358-3.74); Troponin-I HS (w/2H Reflex) 5 pg/mL (3.0-54.0)
[2023-06-27 17:31] VITALS: BP 96/63; PULSE 79; RESP 18; O2SAT 100
[2023-06-27 18:10] LABS: Reflex Troponin-HS? (from REC) Y
[2023-06-27 19:20] LABS: Internal QC Validated? YES +Cl - CLEAR BKGD; Pregnancy, Urine Negative Negative; Record Kit Lot#,Urine Preg HCG0000718086
[2023-06-27 19:44] LABS: Troponin-I HS 8 pg/mL (3.0-54.0)
[2023-06-27 19:49] LABS: Lactic Acid 1.3 mmol/L (0.4-1.9)
[2023-06-27 21:55] VITALS: BP 100/60; PULSE 92
== END 2023-06-27 21:58 | disposition home or self-care (01) ==
PROVIDERS: Emergency Provider Emergency Medicine; PCP Nurse Practitioner Primary Care; Visit Provider Emergency Medicine
DX: R07.9 Chest pain, unspecified (principal); R00.2 Palpitations
CPT/HCPCS: 71045; 80048; 81025; 83605; 84439; 84443; 84481; 84484; 85025; 93005; 96360; 99284; J7030